=== PATIENT | female | born 1955 ===

== ENCOUNTER → 2020-05-10 13:25 | Outpatient (BNVA) | payer OTHER, SELFPAY | PROVIDERS: PCP Internal Medicine; Referring Provider Internal Medicine; Visit Provider Dietitian, Registered | DX: Z76.89 Persons encountering health services in other specified circumstances (principal) ==

== ENCOUNTER → 2020-07-05 10:44 | Outpatient (BNVA) | payer OTHER, SELFPAY | PROVIDERS: PCP Internal Medicine; Referring Provider Internal Medicine; Visit Provider Nurse Practitioner | DX: Z13.89 Encounter for screening for other disorder (principal) | CPT/HCPCS: Q3014 ==

== ENCOUNTER 2020-08-17 10:42 | Outpatient (REF) | payer OTHER, SELFPAY ==
[2020-08-17 12:31] LABS: Creatinine Urine 137.12 mg/dL
[2020-08-17 12:42] LABS: Alanine Aminotransferase 72 U/L (0-31); Albumin Level 4.1 g/dL (3.5-5.0); Alkaline Phosphatase 119 U/L (39-117); Anion Gap 16 (12-20); Aspartate Amino Transferase 46 U/L (5-31); Bilirubin Total 0.4 mg/dL (0.0-1.0); Blood Urea Nitrogen 13 mg/dL (9-16); Calcium 9.2 mg/dL (8.4-10.2); Carbon Dioxide 28 mmol/L (22-29); Chloride 104 mmol/L (96-108); Cholesterol 144 mg/dL; Estimated Glomerular Filt Rate > 60; Glucose Fasting 146 mg/dL (60-99); HDL Cholesterol 64 mg/dL; LDL Cholesterol Calculated 59 mg/dl; Potassium 4.5 mmol/l (3.3-5.1); Sodium 143 mmol/L (135-145); Triglycerides 107 mg/dL
== END 2020-08-17 10:43 | disposition home or self-care (01) ==
LOC: HO.LAB 10:42
PROVIDERS: PCP Internal Medicine; Visit Provider Internal Medicine
DX: E78.00 Pure hypercholesterolemia, unspecified (principal); E11.43 Type 2 diabetes mellitus with diabetic autonomic (poly)neuropathy
CPT/HCPCS: 36415; 80053; 80061; 82043

== ENCOUNTER 2020-12-08 10:32 | Outpatient (REF) | payer OTHER, SELFPAY ==
[2020-12-08 12:05] LABS: Estimated Average Glucose 209 mg/dL; Hemoglobin A1c % 8.9 %
[2020-12-08 12:07] LABS: Alanine Aminotransferase 42 U/L (0-31); Alkaline Phosphatase 108 U/L (39-117); Anion Gap 12 (12-20); Aspartate Amino Transferase 25 U/L (5-31); Bilirubin Total 0.5 mg/dL (0.0-1.0); Blood Urea Nitrogen 13 mg/dL (9-16); Calcium 9.6 mg/dL (8.4-10.2); Carbon Dioxide 29 mmol/L (22-29); Chloride 104 mmol/L (96-108); Cholesterol 202 mg/dL; Estimated Glomerular Filt Rate > 60; Glucose Fasting 172 mg/dL (60-99); HDL Cholesterol 63 mg/dL; LDL Cholesterol Calculated 111 mg/dl; Potassium 4.4 mmol/L (3.3-5.1); Sodium 141 mmol/L (135-145); Total Protein 6.8 g/dL (6.5-8.0); Triglycerides 140 mg/dL
[2020-12-08 12:21] LABS: Creatinine Urine 214.37 mg/dL; Microalbum/Creatinine Ratio Ur 5.1 ug/mg cr
== END 2020-12-08 10:33 | disposition home or self-care (01) ==
LOC: HO.LAB 10:32
PROVIDERS: PCP Internal Medicine; Visit Provider Internal Medicine
DX: E11.43 Type 2 diabetes mellitus with diabetic autonomic (poly)neuropathy (principal); E78.5 Hyperlipidemia, unspecified
CPT/HCPCS: 36415; 80053; 80061; 82043; 83036

== ENCOUNTER 2021-01-07 15:28 | Outpatient (REF) | payer OTHER, SELFPAY ==
--- NOTE | ~2021-01-07 | MM_ITS ---
EXAMINATION: MM SCREENING DIGITAL BREAST TOMOSYNTHESIS, BILATERAL CLINICAL INFORMATION: Screening. Asymptomatic. The lifetime risk of breast cancer based on the Tyrer-Cuzick Model is 5%. COMPARISON: Mammography: 11/14/2018, 06/20/2016, 04/02/2015 TECHNIQUE: Digital breast tomosynthesis is performed in both the craniocaudal and mediolateral oblique views along with computer-aided detection (CAD). Synthesized 2D images are generated from the tomosynthesis. Additional right MLO view is provided. FINDINGS: There are scattered areas of fibroglandular density (ACR BI-RADS breast composition Category b). There are no significant masses, abnormal calcifications, or other abnormalities. Parenchymal pattern is similar to prior studies. No developing density. No significant MM/MM tomosynthesis screening BI IMPRESSION: No mammographic evidence of malignancy. ASSESSMENT: BI-RADS 1: Negative RECOMMENDATION: Routine annual mammography screening. This patient's information was entered into a reminder system with a target due date for their next mammogram.
== END 2021-01-07 15:29 | disposition home or self-care (01) ==
LOC: HO.MAMMO 15:28
PROVIDERS: Visit Provider Internal Medicine
DX: Z12.31 Encounter for screening mammogram for malignant neoplasm of breast (principal)
CPT/HCPCS: 77063; 77067

== ENCOUNTER → 2021-02-17 09:12 | Outpatient (BNVA) | payer OTHER, SELFPAY | PROVIDERS: PCP Internal Medicine; Visit Provider Nurse Practitioner | DX: K59.04 Chronic idiopathic constipation (principal); K21.9 Gastro-esophageal reflux disease without esophagitis; K31.84 Gastroparesis; K64.9 Unspecified hemorrhoids; D12.6 Benign neoplasm of colon, unspecified | CPT/HCPCS: Q3014 ==

== ENCOUNTER 2021-04-05 10:06 | Outpatient (REF) | payer OTHER, SELFPAY ==
[2021-04-05 11:33] LABS: Alanine Aminotransferase 26 U/L (0-31); Alkaline Phosphatase 85 U/L (39-117); Anion Gap 13 (12-20); Aspartate Amino Transferase 18 U/L (5-31); Bilirubin Total 0.5 mg/dL (0.0-1.0); Blood Urea Nitrogen 9 mg/dL (9-16); Calcium 9.8 mg/dL (8.4-10.2); Carbon Dioxide 30 mmol/L (22-29); Chloride 104 mmol/L (96-108); Cholesterol 196 mg/dL; Estimated Glomerular Filt Rate > 60; Glucose Fasting 100 mg/dL (60-99); HDL Cholesterol 73 mg/dL; LDL Cholesterol Calculated 99 mg/dl; Potassium 4.4 mmol/L (3.3-5.1); Sodium 143 mmol/L (135-145); Total Protein 6.7 g/dL (6.5-8.0); Triglycerides 120 mg/dL
[2021-04-05 11:52] LABS: SARS COV2 IgG Positive (Negative)
[2021-04-05 13:30] LABS: Microalbum/Creatinine Ratio Ur 6.9 ug/mg cr
[2021-04-10 12:22] LABS: Vitamin D 25-OH, D2 <4 ng/mL; Vitamin D 25-OH, D3 24 ng/mL; Vitamin D 25-OH, Total 24 ng/mL (30-100)
== END 2021-04-05 10:07 | disposition home or self-care (01) ==
LOC: HO.LAB 10:06
PROVIDERS: PCP Internal Medicine; Visit Provider Internal Medicine
DX: E11.43 Type 2 diabetes mellitus with diabetic autonomic (poly)neuropathy (principal); E55.9 Vitamin D deficiency, unspecified; E78.5 Hyperlipidemia, unspecified; M25.50 Pain in unspecified joint; Z01.84 Encounter for antibody response examination
CPT/HCPCS: 36415; 80053; 80061; 82043; 82306; 86769

== ENCOUNTER → 2021-06-23 09:20 | Outpatient (BNVA) | payer OTHER, SELFPAY | PROVIDERS: PCP Internal Medicine; Visit Provider Nurse Practitioner | DX: Z13.89 Encounter for screening for other disorder (principal) | CPT/HCPCS: Q3014 ==

== ENCOUNTER → 2021-12-22 10:18 | Outpatient (BNVA) | payer OTHER, SELFPAY | PROVIDERS: PCP Internal Medicine; Referring Provider Internal Medicine; Visit Provider Nurse Practitioner | DX: K59.04 Chronic idiopathic constipation (principal); K21.9 Gastro-esophageal reflux disease without esophagitis; K31.84 Gastroparesis; D12.6 Benign neoplasm of colon, unspecified | CPT/HCPCS: 99212 ==

== ENCOUNTER 2022-01-25 10:13 | Outpatient (REF) | payer OTHER, SELFPAY ==
[2022-01-25 10:32] LABS: MANUAL DIFF FLAG NO
[2022-01-25 10:42] LABS: Basophils Percent Auto 0.4 % (0-2); Eosinophils Absolute Auto 0.2 X10*3/uL (0.0-0.4); Hematocrit 42.4 % (37.0-47.0); Hemoglobin 13.4 g/dl (12.0-16.0); Imm Gran Abs Auto 0.02 X10*3/uL (0.00-0.03); Imm Gran Pct Auto 0.3 % (0.0-0.4); Lymphocytes Absolute Auto 2.2 X10*3/uL (1.2-4.9); Lymphocytes Percent Auto 27.4 % (20-40); Mean Corpuscular HGB Conc 31.6 g/dl (31.0-35.0); Mean Corpuscular Hemoglobin 28.5 pg (27.0-33.0); Mean Corpuscular Volume 90.2 fL (80.0-98.0); Mean Platelet Volume 9.7 fL (9.4-12.3); Monocytes Absolute Auto 0.5 X10*3/uL (0.1-1.2); Monocytes Percent Auto 6.5 % (2-11); Neutrophils Percent Auto 63.4 % (45-73); Platelet Count 316 X10*3/uL (160-400); Red Cell Distribution Width 14.6 % (11.0-16.0); White Blood Count 7.9 X10*3/uL (4.8-10.8)
[2022-01-25 11:29] LABS: Alanine Aminotransferase 21 U/L (0-31); Albumin Level 4.2 g/dL (3.5-5.0); Alkaline Phosphatase 80 U/L (39-117); Anion Gap 12 (12-20); Aspartate Amino Transferase 16 U/L (5-31); Bilirubin Total 0.4 mg/dL (0.0-1.0); Blood Urea Nitrogen 14 mg/dL (9-16); Calcium 9.4 mg/dL (8.4-10.2); Carbon Dioxide 31 mmol/L (22-29); Chloride 102 mmol/L (96-108); Cholesterol 174 mg/dL; Estimated Glomerular Filt Rate > 60; Glucose Random 114 mg/dL (60-115); HDL Cholesterol 69 mg/dL; LDL Cholesterol Calculated 86 mg/dl; Potassium 4.5 mmol/L (3.3-5.1); Sodium 140 mmol/L (135-145); Triglycerides 98 mg/dL
[2022-01-25 12:36] LABS: Creatinine Urine 122.56 mg/dL; Microalbum/Creatinine Ratio Ur 7.3 ug/mg cr
== END 2022-01-25 10:14 | disposition home or self-care (01) ==
LOC: HO.LAB 10:13
PROVIDERS: Absent Provider Internal Medicine; PCP Internal Medicine; Visit Provider Nurse Practitioner
DX: E11.43 Type 2 diabetes mellitus with diabetic autonomic (poly)neuropathy (principal); E78.5 Hyperlipidemia, unspecified; D12.6 Benign neoplasm of colon, unspecified
CPT/HCPCS: 36415; 80053; 80061; 82043; 85025

== ENCOUNTER 2022-02-20 11:25 | Outpatient (REF) | payer OTHER, SELFPAY ==
--- NOTE | ~2022-02-20 | MM_ITS ---
EXAMINATION: MM SCREENING DIGITAL BREAST TOMOSYNTHESIS, BILATERAL CLINICAL INFORMATION: Screening. Asymptomatic. The lifetime risk of breast cancer based on the Tyrer-Cuzick Model is 5%. COMPARISON: Mammography: 01/07/2021, 11/14/2018, 06/20/2016 TECHNIQUE: Digital breast tomosynthesis is performed in both the craniocaudal and mediolateral oblique views along with computer-aided detection (CAD). Synthesized 2D images are generated from the tomosynthesis. FINDINGS: There are scattered areas of fibroglandular density (ACR BI-RADS breast composition Category b). There are no significant masses, abnormal calcifications, or other abnormalities. Parenchymal pattern is similar to prior studies. There is no developing density or architectural abnormality. The axilla and skin contours are unremarkable. No significant changes. MM/MM tomosynthesis screening BI IMPRESSION: No mammographic evidence of malignancy. ASSESSMENT: BI-RADS 1: Negative RECOMMENDATION: Routine annual mammography screening. This patient's information was entered into a reminder system with a target due date for their next mammogram.
== END 2022-02-20 11:26 | disposition home or self-care (01) ==
LOC: HO.MAMMO 11:25
PROVIDERS: PCP Internal Medicine; Visit Provider Internal Medicine
DX: Z12.31 Encounter for screening mammogram for malignant neoplasm of breast (principal)
CPT/HCPCS: 77063; 77067

== ENCOUNTER 2022-06-01 10:24 | Outpatient (REF) | payer OTHER, SELFPAY ==
[2022-06-01 12:31] LABS: Creatinine Urine 88.33 mg/dL; Microalbum/Creatinine Ratio Ur 6.7 ug/mg cr
[2022-06-01 12:35] LABS: Alanine Aminotransferase 21 U/L (0-31); Albumin Level 4.5 g/dL (3.5-5.0); Alkaline Phosphatase 84 U/L (39-117); Anion Gap 18 (12-20); Aspartate Amino Transferase 17 U/L (5-31); Bilirubin Total 0.4 mg/dL (0.0-1.0); Blood Urea Nitrogen 12 mg/dL (9-16); Calcium 9.7 mg/dL (8.4-10.2); Carbon Dioxide 30 mmol/L (22-29); Chloride 100 mmol/L (96-108); Cholesterol 229 mg/dL; Estimated Glomerular Filt Rate > 60; Glucose Fasting 98 mg/dL (60-99); HDL Cholesterol 71 mg/dL; LDL Cholesterol Calculated 132 mg/dl; Potassium 4.9 mmol/L (3.3-5.1); Sodium 143 mmol/L (135-145); Total Protein 7.5 g/dL (6.5-8.0); Triglycerides 131 mg/dL
[2022-06-01 13:13] LABS: Vitamin D 25-OH Total 39.2 ng/mL (>30)
== END 2022-06-01 10:25 | disposition home or self-care (01) ==
LOC: HO.LAB 10:24
PROVIDERS: PCP Internal Medicine; Visit Provider Internal Medicine
DX: E11.43 Type 2 diabetes mellitus with diabetic autonomic (poly)neuropathy (principal); E55.9 Vitamin D deficiency, unspecified; E78.5 Hyperlipidemia, unspecified
CPT/HCPCS: 36415; 80053; 80061; 82043; 82306

== ENCOUNTER → 2022-06-07 10:29 | Outpatient (BNVA) | payer OTHER, SELFPAY | PROVIDERS: PCP Internal Medicine; Visit Provider Nurse Practitioner | DX: K59.04 Chronic idiopathic constipation (principal); K31.84 Gastroparesis; K21.9 Gastro-esophageal reflux disease without esophagitis; K64.9 Unspecified hemorrhoids; D12.6 Benign neoplasm of colon, unspecified | CPT/HCPCS: 99212 ==

== ENCOUNTER 2022-10-09 10:14 | Outpatient (REF) | payer OTHER, SELFPAY ==
[2022-10-09 12:59] LABS: Alanine Aminotransferase 34 U/L (0-31); Alkaline Phosphatase 89 U/L (39-117); Anion Gap 14 (12-20); Aspartate Amino Transferase 25 U/L (5-31); Bilirubin Total 0.3 mg/dL (0.0-1.0); Blood Urea Nitrogen 17 mg/dL (9-16); Calcium 9.1 mg/dL (8.4-10.2); Carbon Dioxide 30 mmol/L (22-29); Chloride 102 mmol/L (96-108); Estimated Glomerular Filt Rate > 60; Glucose Random 101 mg/dL (60-115); Potassium 4.5 mmol/L (3.3-5.1); Sodium 141 mmol/L (135-145); Total Protein 6.4 g/dL (6.5-8.0)
== END 2022-10-09 10:15 | disposition home or self-care (01) ==
LOC: HO.LAB 10:14
PROVIDERS: PCP Internal Medicine; Visit Provider Internal Medicine
DX: E11.43 Type 2 diabetes mellitus with diabetic autonomic (poly)neuropathy (principal)
CPT/HCPCS: 36415; 80053

== ENCOUNTER → 2022-12-05 09:36 | Outpatient (BNVA) | payer OTHER, SELFPAY | PROVIDERS: PCP Internal Medicine; Visit Provider Nurse Practitioner | DX: K59.04 Chronic idiopathic constipation (principal); K31.84 Gastroparesis; K21.9 Gastro-esophageal reflux disease without esophagitis; D12.6 Benign neoplasm of colon, unspecified | CPT/HCPCS: 99212 ==

== ENCOUNTER 2023-02-13 11:16 | Outpatient (REF) | payer OTHER, SELFPAY ==
[2023-02-13 14:48] LABS: Estimated Average Glucose 114 mg/dL; Hemoglobin A1c % 5.6 %
[2023-02-13 17:22] LABS: Creatinine Urine 110.93 mg/dL; Microalbum/Creatinine Ratio Ur 8.1 ug/mg cr
[2023-02-13 19:27] LABS: Alanine Aminotransferase 29 U/L (0-31); Albumin Level 4.1 g/dL (3.5-5.0); Alkaline Phosphatase 77 U/L (39-117); Anion Gap 15 (12-20); Aspartate Amino Transferase 23 U/L (5-31); Bilirubin Total 0.4 mg/dL (0.0-1.0); Blood Urea Nitrogen 12 mg/dL (9-16); Calcium 9.6 mg/dL (8.4-10.2); Carbon Dioxide 28 mmol/L (22-29); Chloride 104 mmol/L (96-108); Cholesterol 137 mg/dL; Estimated Glomerular Filt Rate > 60; Glucose Fasting 72 mg/dL (60-99); HDL Cholesterol 73 mg/dL; LDL Cholesterol Calculated 48 mg/dl; Sodium 143 mmol/L (135-145); Triglycerides 81 mg/dL
[2023-02-13 19:43] LABS: Vitamin D 25-OH Total 42.6 ng/mL (>30)
== END 2023-02-13 11:17 | disposition home or self-care (01) ==
LOC: HO.LAB 11:16
PROVIDERS: PCP Internal Medicine; Visit Provider Internal Medicine
DX: E11.40 Type 2 diabetes mellitus with diabetic neuropathy, unspecified (principal); E55.9 Vitamin D deficiency, unspecified; E78.5 Hyperlipidemia, unspecified
CPT/HCPCS: 36415; 80053; 80061; 82043; 82306; 83036

== ENCOUNTER 2023-02-21 09:48 | Outpatient (AMB) | payer OTHER, SELFPAY ==
[2023-02-21 09:54] VITALS: BP 130/76; BMI 26.5
--- NOTE | 2023-02-21 09:54 | MHC.PC.OV ---
Vital Signs 02/21/23 09:54 Height 5 ft 6 in Weight 164 lb BMI 26.5 BP 130/76 Blood Pressure Location Lt brachial Position Sitting Intake Visit Reasons: dm Intake Note: Patient here for a follow up DM Customer Relationship Specialist Required: No Accompanied by: Daughter Allergies atorvastatin Allergy (Intermediate, Verified 02/21/23 10:01) elevated liver enzymes cortisone [CORTISONE] Allergy (Intermediate, Verified 02/21/23 10:01) SWELLING Penicillins [PENICILLINS] Allergy (Mild, Verified 02/21/23 10:01) RASH Medication List - Last Reconciled 02/21/23 by Gwendolyn Lind MD amitriptyline 20 mg (2 x 10 mg) PO DAILY aripiprazole 5 mg PO DAILY blood sugar diagnostic (FreeStyle Lite Strips) 1 strip miscellaneous BID 90 days bupropion HCl 300 mg PO BEDTIME buspirone 0 mg PO cholecalciferol (vitamin D3) 25 mcg PO DAILY 90 days clonidine HCl 0.2 mg PO BEDTIME dapagliflozin propanediol (Farxiga) 5 mg PO DAILY 90 days docusate sodium 100 mg PO BID PRN 90 days ezetimibe 10 mg PO DAILY 90 days fluoxetine 60 mg PO QAM gabapentin 600 mg PO TID 30 days lancets (FreeStyle Lancets) 1 gauge topical BID 90 days linaclotide 290 mcg PO DAILY 30 days meclizine 25 mg PO TID PRN 30 days metformin ER 1,000 mg (2 x 500 mg) PO BID 90 days metoclopramide HCl 5 mg PO QID omeprazole 40 mg PO BID rosuvastatin 10 mg PO DAILY 90 days sennosides (senna) 17.2 mg (2 x 8.6 mg) PO BEDTIME PRN trazodone 100 mg PO Tobacco use date assessed: 10/16/22 Fall risk assessment: No Falls in past year Last assessed Fall Risk: 02/21/23 Dental Screening Dental Screen Date: 02/21/23 Did you have a dental visit in the last 12 months?: Yes Did you have a dental problem in the last 6 months where you did not have access to dental care?: No Was dental information given to patient?: Patient has dentist HPI HPI Comments History of Present Illness Details This is a 67-year-old female with diabetes mellitus type 2, mild major depression, dyslipidemia, GERD and constipation that comes accompanied by daughter Rosa for follow-up on her conditions. A1c within goal. Depression stable with medications and follow by Psychiatry. LDL within goal. GERD stable with PPIs as needed. Constipation stable with Linzess. No chest pain or shortness of breath. [facility] Medical History Dyslipidemia Hypovitaminosis D Left knee pain Mild recurrent major depression Polyarthralgia Surgical History (Updated 02/21/23 @ 10:05 by Gwendolyn Lind MD) H/O arthroscopy of left knee H/O prior ablation treatment History of bladder surgery History of carpal tunnel release History of esophagogastroduodenoscopy (EGD) History of left knee surgery History of partial hysterectomy History of total right knee replacement History of tubal ligation Hx of arthroplasty Hx of cardiac cath Hx of section Hx of colonoscopy Hx of shoulder surgery Family History Father CVD (cardiovascular disease) Mother Diabetes Hypertension Son No problems noted. Daughter No problems noted. Daughter No problems noted. Family/Other Mental health disorder Social History Housing: Apartment Alcohol intake: never Patient Tobacco Use Status: Never used Tobacco e-Cigarette/Vaping Use: Never Used Second Hand Smoke Exposure: No service: No Current occupational status: unemployed Cognitive needs: No Hearing needs: No Vision needs: No Questionnaire Thrive Questionnaire Date Thrive assessed: 10/16/22 TEO-7 AMB Questionnaire TEO-7 Date TEO - 7 assessed: 10/16/22 Source: Developed by Drs. Prosper North, Mickie Almonte, Cb Melara and colleagues, with an educational john from [email or web address]. Review of Systems Const All systems reviewed & are unremarkable except as noted in HPI and below Eyes Reports no additional complaints, Denies change in vision and Denies other visual disturbances Card Denies chest pain at rest, Denies chest pain with activity, Denies edema, Denies irregular heart rhythm, Denies claudication, Denies dyspnea, Denies dyspnea on exertion, Denies orthopnea, Denies paroxysmal nocturnal dyspnea and Denies slow heart rate Resp Denies cough, Denies dyspnea and Denies dyspnea on exertion GI Denies abdominal pain, Denies change in bowel habits, Denies excessive flatus, Denies nausea and Denies vomiting Denies urinary incontinence, Denies urinary hesitancy and Denies urinary urgency Musc Denies abnormal gait, Denies atrophy, Denies deformity and Denies limited range of motion Skin/Breast Denies bleeding lesions, Denies changing lesions and Denies rash Neuro Denies abnormal gait and Denies lack of coordination Physical exam (Primary Care) Vital Signs: Last Vital Signs BP 130/76 02/21/23 09:54 BMI result Body Mass Index 26.5 Tobacco/Smoking Status: Tobacco use Status Tobacco use date assessed 10/16/22 02/21/23 09:58 Patient Tobacco Use Status Never used Tobacco 02/21/23 09:58 e-Cigarette/Vaping Use Never Used 02/21/23 09:58 Thrive Assessment: Date of Thrive Assessment Date Thrive assessed 10/16/22 02/21/23 09:58 Eyes General: appearance normal, both eyes and all related structures Eyelids: Yes eyelids normal Conjunctivae: conjunctivae normal Neck Neck: Yes normal visual inspection and Yes supple Resp Effort & Inspection: normal respiratory effort Auscultation: clear to auscultation bilaterally Cardio Jugular venous distension: no JVD Rate: regular rate Rhythm: regular rhythm Heart sounds: S1 normal heart sound present and S2 normal heart sound present Extrem General: Yes full ROM Assessment and Plan Assessment & Plan (1) Diabetes mellitus: Code(s): E11.9 - Type 2 diabetes mellitus without complications Plan: Continue metformin and Farxiga. A1c goal is equal or less than 7%. (2) Mild recurrent major depression: Code(s): F33.0 - Major depressive disorder, recurrent, mild Plan: Continue Abilify, bupropion and fluoxetine. Follow-up with psychiatry. (3) Dyslipidemia: Code(s): E78.5 - Hyperlipidemia, unspecified Plan: Continue statins and Zetia. LDL goal is less than 70. (4) GERD (gastroesophageal reflux disease): Code(s): K21.9 - Gastro-esophageal reflux disease without esophagitis Qualifiers: Esophagitis presence: esophagitis presence not specified Qualified Code(s): K21.9 - Gastro-esophageal reflux disease without esophagitis Plan: Continue PPIs as needed (5) Chronic idiopathic constipation: Code(s): K59.04 - Chronic idiopathic constipation Plan: Continue Linzess and docusate as needed. Orders: Orders Lipid Panel 4 Months E78.5 - Hyperlipidemia, unspecified Vitamin D 25-OH Total 4 Months E55.9 - Vitamin D deficiency, unspecified Microalbumin, Random (w Creat) 4 Months E11.9 - Type 2 diabetes mellitus without complications Comprehensive [place]. Panel Fast 4 Months E11.9 - Type 2 diabetes mellitus without complications Medications: New flash glucose scanning reader ([employer] Tre 14 Day [place]) As directed 1 ea 0RF E11.9 - Type 2 diabetes mellitus without complications Refilled blood sugar diagnostic (FreeStyle Lite Strips) 1 strip miscellaneous BID 90 days 180 ea 3RF for diabetes mellitus E11.43 - Type 2 diabetes mellitus with diabetic autonomic (poly)neuropathy Coding Level of Care Code Est Pt Level 4 (58941) Diagnoses Diabetes mellitus E11.9 Mild recurrent major depression F33.0 Dyslipidemia E78.5 GERD (gastroesophageal reflux disease) K21.9 Esophagitis presence: esophagitis presence not specified Chronic idiopathic constipation K59.04 Time Spent (min) 22
== END 2023-02-21 10:09 | disposition home or self-care (01) ==
PROVIDERS: Visit Provider Internal Medicine
DX: E11.9 Type 2 diabetes mellitus without complications (principal); F33.0 Major depressive disorder, recurrent, mild; E78.5 Hyperlipidemia, unspecified; K21.9 Gastro-esophageal reflux disease without esophagitis; K59.04 Chronic idiopathic constipation
CPT/HCPCS: 99214

== ENCOUNTER 2023-06-06 09:50 | Outpatient (REF) | payer OTHER, SELFPAY ==
[2023-06-06 11:23] LABS: Alanine Aminotransferase 24 U/L (0-31); Albumin Level 4.2 g/dL (3.5-5.0); Alkaline Phosphatase 89 U/L (39-117); Anion Gap 13 (12-20); Aspartate Amino Transferase 21 U/L (5-31); Bilirubin Total 0.3 mg/dL (0.0-1.0); Blood Urea Nitrogen 16 mg/dL (9-16); Carbon Dioxide 32 mmol/L (22-29); Chloride 102 mmol/L (96-108); Cholesterol 159 mg/dL (<200); Estimated Glomerular Filt Rate > 60; Glucose Fasting 100 mg/dL (60-99); HDL Cholesterol 71 mg/dL (>40); LDL Cholesterol Calculated 64 mg/dL (<100); Potassium 4.3 mmol/L (3.3-5.1); Sodium 143 mmol/L (135-145); Total Protein 7.5 g/dL (6.5-8.0); Triglycerides 122 mg/dL (<150)
[2023-06-06 11:41] LABS: Vitamin D 25-OH Total 46.3 ng/mL (>30)
[2023-06-06 12:16] LABS: Creatinine Urine 96.15 mg/dL; Microalbum/Creatinine Ratio Ur 8.3 ug/mg cr (<30)
== END 2023-06-06 09:51 | disposition home or self-care (01) ==
LOC: HO.LAB 09:50
PROVIDERS: PCP Internal Medicine; Visit Provider Internal Medicine
DX: E55.9 Vitamin D deficiency, unspecified (principal); E11.9 Type 2 diabetes mellitus without complications; E78.5 Hyperlipidemia, unspecified
CPT/HCPCS: 36415; 80053; 80061; 82043; 82306; 82570

== ENCOUNTER 2023-06-18 09:37 | Outpatient (AMB) | payer OTHER, SELFPAY ==
--- NOTE | 2023-06-18 09:39 | MHC.PC.OV ---
Vital Signs 06/18/23 09:40 Height 5 ft 6 in Weight 169 lb BMI 27.3 BP 112/70 Blood Pressure Location Lt brachial Position Sitting Intake Visit Reasons: PE Intake Note: Patient here for a physical exam Medical Technologist Blood Bank Required: No Accompanied by: Self / Same As Patient Allergies atorvastatin Allergy (Intermediate, Verified 06/18/23 10:16) elevated liver enzymes cortisone [CORTISONE] Allergy (Intermediate, Verified 06/18/23 10:16) SWELLING Penicillins [PENICILLINS] Allergy (Mild, Verified 06/18/23 10:16) RASH Medication List - Last Reconciled 06/18/23 by Gwendolyn Lind MD amitriptyline 20 mg (2 x 10 mg) PO DAILY aripiprazole 5 mg PO DAILY blood sugar diagnostic ([employer] Ultra Test strips) Use 1 test strip twice a day blood-glucose meter ([employer] Ultra2 Meter) As directed bupropion HCl 300 mg PO BEDTIME buspirone 0 mg PO cholecalciferol (vitamin D3) 25 mcg PO DAILY 90 days clonidine HCl 0.2 mg PO BEDTIME dapagliflozin propanediol (Farxiga) 5 mg PO DAILY 90 days docusate sodium 100 mg PO BID PRN 90 days ezetimibe 10 mg PO DAILY 90 days fluoxetine 60 mg PO QAM gabapentin 600 mg PO TID 30 days lancets ([employer] UltraSoft 2 Lancet) Use 1 lancet twice a day linaclotide 290 mcg PO DAILY 30 days meclizine 25 mg PO TID PRN 30 days metformin ER 1,000 mg (2 x 500 mg) PO BID 90 days metoclopramide HCl 5 mg PO QID omeprazole 40 mg PO BID rosuvastatin 10 mg PO DAILY 90 days sennosides (senna) 17.2 mg (2 x 8.6 mg) PO BEDTIME PRN trazodone 100 mg PO Tobacco use date assessed: 10/16/22 Fall risk assessment: No Falls in past year Last assessed Fall Risk: 06/18/23 Dental Screening Dental Screen Date: 06/18/23 Did you have a dental visit in the last 12 months?: Yes Did you have a dental problem in the last 6 months where you did not have access to dental care?: No Was dental information given to patient?: Patient has dentist HPI HPI Comments History of Present Illness Details This is a 67-year-old female with mild recurrent major depression and diabetes mellitus type 2 that comes for her physical exam. Depression stable with medications and she follows with psychiatry. A1c is within goal. Mammogram was February 2022 and I will order another mammogram. Bone density will also be ordered. Colonoscopy done 2016 and she follows with Gastroenterology for this matter. No chest pain or shortness of breath. [facility] Medical History (Updated 06/18/23 @ 12:02 by Gwendolyn Lind MD) Hypovitaminosis D Mild recurrent major depression Polyarthralgia Left knee pain Dyslipidemia Surgical History H/O arthroscopy of left knee History of left knee surgery History of total right knee replacement H/O prior ablation treatment History of partial hysterectomy History of tubal ligation Hx of arthroplasty Hx of cardiac cath History of carpal tunnel release Hx of shoulder surgery Hx of section History of bladder surgery Hx of colonoscopy History of esophagogastroduodenoscopy (EGD) Family History Father CVD (cardiovascular disease) Mother Diabetes Hypertension Son No problems noted. Daughter No problems noted. Daughter No problems noted. Family/Other Mental health disorder Housing: Apartment Alcohol intake: never Patient Tobacco Use Status: Never used Tobacco e-Cigarette/Vaping Use: Never Used Second Hand Smoke Exposure: No service: No Current occupational status: unemployed Cognitive needs: No Hearing needs: No Vision needs: No Questionnaire Thrive Questionnaire Date Thrive assessed: 10/16/22 TEO-7 AMB Questionnaire TEO-7 Date TEO - 7 assessed: 10/16/22 Source: Developed by Drs. Prosper North, Mickie Almonte, Cb Melara and colleagues, with an educational john from [employer]. Review of Systems Const All systems reviewed & are unremarkable except as noted in HPI and below Eyes Reports no additional complaints, Denies change in vision and Denies other visual disturbances Card Denies chest pain at rest, Denies chest pain with activity, Denies edema, Denies irregular heart rhythm, Denies claudication, Denies dyspnea, Denies dyspnea on exertion, Denies orthopnea, Denies paroxysmal nocturnal dyspnea and Denies slow heart rate Resp Denies cough, Denies dyspnea and Denies dyspnea on exertion GI Denies abdominal pain, Denies change in bowel habits, Denies excessive flatus, Denies nausea and Denies vomiting Denies urinary incontinence, Denies urinary hesitancy and Denies urinary urgency Musc Denies abnormal gait, Denies atrophy, Denies deformity and Denies limited range of motion Skin/Breast Denies bleeding lesions, Denies changing lesions and Denies rash Neuro Denies abnormal gait and Denies lack of coordination Physical exam (Primary Care) Vital Signs: Last Vital Signs BP 112/70 06/18/23 09:40 BMI result Body Mass Index 27.3 Tobacco/Smoking Status: Tobacco use Status Tobacco use date assessed 10/16/22 06/18/23 09:47 Patient Tobacco Use Status Never used Tobacco 06/18/23 09:47 e-Cigarette/Vaping Use Never Used 06/18/23 09:47 Thrive Assessment: Date of Thrive Assessment Date Thrive assessed 10/16/22 06/18/23 09:47 Const Orientation/consciousness: patient oriented x3 HENMT Head: Yes normal to inspection, Yes normocephalic and Yes atraumatic Ears: external ears normal Eyes General: appearance normal, both eyes and all related structures Eyelids: Yes eyelids normal Conjunctivae: conjunctivae normal Neck Neck: Yes normal visual inspection and Yes supple Resp Effort & Inspection: normal respiratory effort Auscultation: clear to auscultation bilaterally Cardio Jugular venous distension: no JVD Rate: regular rate Rhythm: regular rhythm Heart sounds: S1 normal heart sound present and S2 normal heart sound present GI Inspection: Yes normal to inspection Palpation (GI): Soft to palpation and nontender Auscultation: normal bowel sounds Skin General skin exam: no rashes or lesions noted Neuro General: patient oriented x3 and no focal motor deficits Extrem General: Yes full ROM Psych Appearance: grossly normal Results AMB Hemoglobin A1c AMB Hemoglobin A1c 6.4 % Last Edit by MOSES Lau on 06/18/23 10:07 Results Reviewed Results Reviewed: Laboratory Last Values Hgb A1c (Clinic) 6.4 % (4.0-6.0) H 06/18/23 09:39 Assessment and Plan Assessment & Plan (1) Physical exam: Code(s): Z00.00 - Encounter for general adult medical examination without abnormal findings Plan: Repeat in a year. (2) Diabetes mellitus: Code(s): E11.9 - Type 2 diabetes mellitus without complications Qualifiers: Diabetes mellitus type: type 2 Diabetes mellitus [facility] insulin use: without longwall foreman use Diabetes mellitus complication status: without complication Qualified Code(s): E11.9 - Type 2 diabetes mellitus without complications Plan: Continue metformin and Farxiga. A1c goal is equal or less than 7 %. (3) Mild recurrent major depression: Code(s): F33.0 - Major depressive disorder, recurrent, mild Plan: Continue fluoxetine. Follow-up with psychiatry. Orders: Orders MM screening mammo BI Today Z12.31 - Encounter for screening mammogram for malignant neoplasm of breast XR DEXA axial skeleton Today N95.9 - Unspecified menopausal and perimenopausal disorder Lipid Panel 4 Months E78.5 - Hyperlipidemia, unspecified Microalbumin, Random (w Creat) 4 Months E11.9 - Type 2 diabetes mellitus without complications AMB Hemoglobin A1c Today E11.9 - Type 2 diabetes mellitus without complications Vitamin D 25-OH Total 4 Months E55.9 - Vitamin D deficiency, unspecified Comprehensive [place]. Panel Fast 4 Months E11.43 - Type 2 diabetes mellitus with diabetic autonomic (poly)neuropathy Medications: New flash glucose sensor (FreeStyle Tre 14 Day Sensor kit) As directed 1 ea 6RF E11.9 - Type 2 diabetes mellitus without complications Changed From blood sugar diagnostic ([employer] Ultra Test strips) Use 1 test strip twice a day 100 ea 3RF E11.9 - Type 2 diabetes mellitus without complications To blood sugar diagnostic (OneTouch Ultra Test strips) Use 1 test strip once a day 100 ea 3RF E11.9 - Type 2 diabetes mellitus without complications Coding Level of Care Code Est Pt Prev Care >65y(19379) Diagnoses Physical exam Z00.00 Type 2 diabetes mellitus without complication, without long-term current use of insulin E11.9 Diabetes mellitus type: type 2 Diabetes mellitus [facility] insulin use: without longwall foreman use Diabetes mellitus complication status: without complication Mild recurrent major depression F33.0 Time Spent (min) 34
[2023-06-18 09:40] VITALS: BP 112/70; BMI 27.3
== END 2023-06-18 10:30 | disposition home or self-care (01) ==
PROVIDERS: Visit Provider Internal Medicine
DX: Z00.00 Encounter for general adult medical examination without abnormal findings (principal); E11.9 Type 2 diabetes mellitus without complications; F33.0 Major depressive disorder, recurrent, mild
CPT/HCPCS: 83036; 99397

== ENCOUNTER 2023-07-10 11:13 | Outpatient (AMB) | payer OTHER, SELFPAY ==
--- NOTE | 2023-07-10 11:18 | A.OFFVIS_ITS ---
Intake Vital Signs 07/10/23 11:42 Height 5 ft 6 in Weight 169 lb 5.04 oz BMI 27.3 BP 117/57 L Blood Pressure Location Rt brachial Position Sitting Pulse 89 Intake Visit Reasons: 6 month follow up Intake Note: Rhonda presents in the office today in 6 month follow up for GERD, CIC and Paresis. CC: Patient reports she is doing well but she recently changed her medical insurance and now it does not cover the Linzess and Senna. Denies having any GI concerns today. 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 I educated her that if she has any trouble with her bowels and surgery, because this is sometimes common, she is to reach out to me as I will be happy to help manage this. Otherwise she continues to be satisfied with her GI regimen. She continues on her Reglan with good control of her gastroparesis and no adverse effects. The Linzess is moving her bowels well and she only uses the senna occasionally.. She also continues on docusate odium. Her omeprazole 40 mg twice a day is controlling her GERD well Return office visit in 6 months. (2) Gastroparesis: Code(s): K31.84 - Gastroparesis (3) GERD (gastroesophageal reflux diseas e): Code(s): K21.9 - Gastro-esophageal reflux disease without esophagitis Qualifiers: Esophagitis presence: esophagitis presence not specified Qualified Code(s): K21.9 - Gastro-esophageal reflux disease without esophagitis (4) Tubular adenoma of colon: Comment: 2017n scope repeat 5 years A. GASTRIC ANTRAL-TYPE AND FUNDIC-TYPE MUCOSA WITH NO DIAGNOSTIC ABNORMALITY. AN IMMUNOSTAIN FOR HELICOBACTER PYLORI IS NEGATIVE FOR ORGANISMS. B. TUBULAR ADENOMA. C. TUBULAR ADENOMA. Code(s): D12.6 - Benign neoplasm of colon, unspecified Medications: Refilled docusate sodium 100 mg PO BID 90 days PRN 180 caps 2RF constipation linaclotide PLE ASE DISREGARD THE SCRIPT FOR LASHELL [place], THE PT IS ON LI POOJAESS!! CHART ERRO R 290 mcg PO DAILY 30 days 30 caps 6R F K59.04 - Chronic i diopathic constipa tion metoclopramide HCl 5 mg PO QID 120 t abs 6RF K31.84 - Gastropar esis omeprazole 40 mg PO BID 60 c aps 6RF K21.9 - Gastro-eso phageal reflux dis ease without esoph agitis sennosides (senna) 17.2 mg (2 x 8.6 m g) PO BEDTIME PRN 60 tabs 6RF for co nstipation TODAYS VISIT Citizen [place] She. continues to do well, but had a change in her insurance and they are not covering her senna. I explained that this is common in she is probably going to have to buy it [id number], the good news is it is pretty inexpensive. She think she may need a prior approval for her Linzess so will check into this. She also continues on her metoclopramide, omeprazole, and Colace. She is due for screening colonoscopy because of her history of tubular adenoma so will get this ordered today. There are no prior problems with anesthesia or sedation. She denies any cardiac or respiratory problems. No ID problems.. ROV 6 mos and after colonoscopy. [facility] Medical History Hypovitaminosis D Mild recurrent major depression Polyarthralgia Left knee pain Dyslipidemia Surgical History H/O arthroscopy of left knee History of left knee surgery History of total right knee replacement H/O prior ablation treatment History of partial hysterectomy History of tubal ligation Hx of arthroplasty Hx of cardiac cath History of carpal tunnel release Hx of shoulder surgery Hx of section History of bladder surgery Hx of colonoscopy History of esophagogastroduodenoscopy (EGD) Family History Father CVD (cardiovascular disease) Mother Diabetes Hypertension Son No problems noted. Daughter No problems noted. Daughter No problems noted. Family/Other Mental health disorder Social History Housing: Apartment Alcohol intake: never Patient Tobacco Use Status: Never used Tobacco e-Cigarette/Vaping Use: Never Used Second Hand Smoke Exposure: No service: No Current occupational status: unemployed Cognitive needs: No Hearing needs: No Vision needs: No Review of Systems Const Denies fatigue, Denies fever(s), Denies night sweats, Denies poor appetite and Denies weight loss ENT Reports Normal hearing present, Denies dental pain, Denies dysphagia, Denies hearing loss, Denies mouth pain, Denies odynophagia, Denies throat swelling, Denies tongue swelling and Reports other (Dentition adequate) Card Reports no additional complaints Resp Reports no additional complaints GI Denies abdominal pain, Denies melena, Reports bloating, Denies hematochezia, Reports constipation, Denies GI cramping, Denies dysphagia, Denies excessive flatus, Reports early satiety, Reports heartburn, Denies diarrhea, Denies nausea, Denies odynophagia, Denies vomiting and Denies hematemesis Skin/Breast Denies pruritus, Denies lesions, Denies rash and Denies jaundice Neuro Reports Normal hearing present and Denies Abnormal speech present Endo Denies fatigue Aller/Immun Denies throat swelling and Denies tongue swelling Physical Exam Vital Signs: Last Vital Signs Pulse 89 07/10/23 11:42 BP 117/57 L 07/10/23 11:42 BMI result Body Mass Index 27.3 Const General: cooperative, no acute distress, well developed and well groomed Nutritional Appearance: average body habitus and well nourished Orientation/consciousness: oriented to person, oriented to place and oriented to time Limitations: language barrier HEENT Head: Yes normocephalic and Yes atraumatic Teeth and gingiva: poor dentition (missing many front teeth) Eyes General: appearance normal, both eyes and all related structures Pupils: Equal, round and reactive pupils present Neck Neck: Yes normal visual inspection and Yes no lymphadenopathy Thyroid: Thyroid normal Resp Effort & Inspection: normal respiratory effort and able to speak in complete sentences Auscultation: clear to auscultation bilaterally Cardio Rate: regular rate Rhythm: regular rhythm Heart sounds: Normal, physiologic split S2 sound present Peripheral pulses: radial pulses present and posterior tibial pulses present GI Inspection: No distended and No Abdominal panniculus present Palpation (GI): Soft to palpation, nontender, no guarding, not rigid and No hepatosplenomegaly present Percussion: Yes normal to percussion Auscultation: normal bowel sounds Rectal Exam - Female: deferred Skin General skin exam: no rashes or lesions noted, turgor normal, skin not dry, no jaundice, No spider nevi and no striae Rashes: no rashes Nails: normal Neuro General: oriented to person, oriented to place and oriented to time Cranial nerves: Yes Equal, round and reactive pupils present and Yes Normal hearing present Speech: No Abnormal speech present Extrem General: Yes normal to inspection, No clubbing, No cyanosis and No edema Psych Appearance: grossly normal and well kempt Mental Status: mental status grossly normal Speech and movement: Normal speech and movement present Affect: normal affect Attitude: cooperative Thought process: Normal thought process present and not confabulating Thought content: Normal thought content present Insight: Fair insight present (Psych) Judgement: Fair judgement present (Psych) Results Reviewed Results Reviewed: Laboratory Tests 06/06/23 06/06/23 06/18/23 10:04 10:04 09:39 Estimated GFR > 60 Hgb A1c (Clinic) 6.4 H Total Bilirubin 0.3 AST 21 ALT 24 Alkaline Phosphatase 89 Assessment & Plan Assessment & Plan (1) Chronic idiopathic constipation: Code(s): K59.04 - Chronic idiopathic constipation (2) GERD (gastroesophageal reflux disease): Code(s): K21.9 - Gastro-esophageal reflux disease without esophagitis Qualifiers: Esophagitis presence: esophagitis presence not specified Qualified Code(s): K21.9 - Gastro-esophageal reflux disease without esophagitis (3) Gastroparesis: Code(s): K31.84 - Gastroparesis (4) Tubular adenoma of colon: Comment: 2017n scope repeat 5 years A. GASTRIC ANTRAL-TYPE AND FUNDIC-TYPE MUCOSA WITH NO DIAGNOSTIC ABNORMALITY. AN IMMUNOSTAIN FOR HELICOBACTER PYLORI IS NEGATIVE FOR ORGANISMS. B. TUBULAR ADENOMA. C. TUBULAR ADENOMA. Code(s): D12.6 - Benign neoplasm of colon, unspecified (5) Pre-op examination: Code(s): Z01.818 - Encounter for other preprocedural examination Plan Citizen [place] She. continues to do well, but had a change in her insurance and they are not covering her senna. I explained that this is common in she is probably going to have to buy it [id number], the good news is it is pretty inexpensive. She think she may need a prior approval for her Linzess so will check into this. She also continues on her metoclopramide, omeprazole, and Colace. She is due for screening colonoscopy because of her history of tubular adenoma so will get this ordered today. There are no prior problems with anesthesia or sedation. She denies any cardiac or respiratory problems. No ID problems.. ROV 6 mos and after colonoscopy. . Orders: Orders Colonoscopy - GI Use Only Today Medications: New sodium,potassium,mag sulfates 17.5-3.13-1.6 gram (Suprep Bowel Prep Kit) 480 mL orally; 354 mL 0RF D12.6 - Benign neoplasm of colon, unspecified Changed From linaclotide PLEASE DISREGARD THE SCRIPT FOR TRULANCE, THE PT IS ON LINZESS!! CHART ERROR 290 mcg PO DAILY 30 days 30 caps 6RF K59.04 - Chronic idiopathic constipation To linaclotide 290 mcg PO DAILY 30 days 30 caps 6RF K59.04 - Chronic idiopathic constipation Refilled omeprazole 40 mg PO BID 60 caps 6RF K21.9 - Gastro-esophageal reflux disease without esophagitis sennosides (senna) 17.2 mg (2 x 8.6 mg) PO BEDTIME PRN 60 tabs 6RF for cons tipation metoclopramide HCl 5 mg PO QID 120 tabs 6RF K31.84 - Gastroparesis Coding Level of Care Code Est Pt Level 4 (64431) Diagnoses Chronic idiopathic constipation K59.04 Gastroesophageal reflux disease, unspecified whether esophagitis present K21.9 Esophagitis presence: esophagitis presence not specified Gastroparesis K31.84 Tubular adenoma of colon D12.6 Pre-op examination Z01.818
[2023-07-10 11:42] VITALS: BP 117/57; PULSE 89; BMI 27.3
== END 2023-07-10 12:29 | disposition home or self-care (01) ==
PROVIDERS: PCP Internal Medicine; Visit Provider Nurse Practitioner
DX: K59.04 Chronic idiopathic constipation (principal); K21.9 Gastro-esophageal reflux disease without esophagitis; K31.84 Gastroparesis; D12.6 Benign neoplasm of colon, unspecified; Z01.818 Encounter for other preprocedural examination
CPT/HCPCS: 99214

== ENCOUNTER → 2023-07-10 11:13 | Outpatient (BNVA) | payer OTHER, SELFPAY | PROVIDERS: PCP Internal Medicine; Visit Provider Nurse Practitioner | DX: Z01.818 Encounter for other preprocedural examination (principal); K59.04 Chronic idiopathic constipation; K21.9 Gastro-esophageal reflux disease without esophagitis; K31.84 Gastroparesis; D12.6 Benign neoplasm of colon, unspecified | CPT/HCPCS: 99212 ==

== ENCOUNTER 2023-08-15 10:22 | Outpatient (REF) | payer MEDICARE, SELFPAY ==
--- NOTE | ~2023-08-15 | MM_ITS ---
EXAMINATION: BONE DENSITOMETRY CLINICAL INDICATION: Unspecified menopausal and perimenopausal disorder. COMPARISON: This is the patient's baseline examination. TECHNIQUE: Using a [employer] DXA System (software version: 13.1) manufactured by [employer], dual-energy x-ray absorptiometry was performed of the lumbar spine and left hip. The images are of good technical quality. Summary results are attached. FINDINGS: LEFT FEMUR, NECK: BMD 0.795 g/cm2, Z-score -0.5, T-score -1.8, osteopenia. LEFT FEMUR, TOTAL: BMD 0.857 g/cm2, Z-score -0.3, T-score -1.2, osteopenia. AP SPINE L1-L3 (excluding L4): The data of L1-L4 has been changed to exclude the L4 vertebral body, because degenerative sclerosis at this level may cause overestimation of lumbar spine density. BMD 0.943 g/cm2, Z-score -0.7, T-score -1.9, osteopenia. IDENTIFIED RISK FACTORS: Early menopause, secondary osteoporosis, hysterectomy. HISTORY OF FRACTURE: None listed. MEDICATIONS: Vitamin D. MM/XR DEXA axial skeleton IMPRESSION: 1. DIAGNOSIS: Osteopenia based on the lowest T-score value of -1.9 in the lumbar spine applying World Health Organization criteria. 2. 10-YEAR FRACTURE RISK PREDICTION, FRAX: Major osteoporotic fracture (clinical spine, forearm, hip or shoulder) 5.5%. Hip fracture 0.7%. 3. Treatment Recommendations: NOF guidelines recommend consideration for treatment in postmenopausal women and men age 50 and older presenting with the following: -A hip or vertebral (clinical or morphometric) fracture. -T-score less than or equal to -2.5 at the femoral neck or spine after appropriate evaluation to exclude secondary causes. -Low bone mass at the hip or spine and a 10-year fracture probability by FRAX of greater than or equal to 3% for hip fracture or greater than or equal to 20% for major osteoporotic fracture based on the [place] adapted WHO algorithm. 4. Other Recommendations: All treatment decisions require clinical judgment and consideration of individual patient factors, including patient preferences, comorbidities, previous drug use, risk factors not captured in the FRAX model (e.g. frailty, falls, vitamin D deficiency, increased bone turnover, interval significant decline in bone density) and possible under or overestimation of fracture risk by FRAX. Additional medical evaluation for secondary cause of low bone mineral density may be appropriate. FUTURE SCAN RECOMMENDATION: People with diagnosed cases of osteoporosis or at high risk for fracture should have regular bone mineral density tests. For patients eligible for Medicare, routine testing is allowed once every 2 years. The testing frequency can be increased to one year for patients who have rapidly progressing disease, those who are receiving or discontinuing medical therapy to restore bone mass, or have additional risk factors.
== END 2023-08-15 10:23 | disposition home or self-care (01) ==
LOC: HO.MAMMO 10:22
PROVIDERS: PCP Internal Medicine; Visit Provider Internal Medicine
DX: Z12.31 Encounter for screening mammogram for malignant neoplasm of breast (principal); Z13.820 Encounter for screening for osteoporosis; Z78.0 Asymptomatic menopausal state
CPT/HCPCS: 77063; 77067; 77080

== ENCOUNTER → 2023-08-15 11:00 | Outpatient (BNV) | payer MEDICARE, SELFPAY | PROVIDERS: PCP Internal Medicine; Visit Provider Radiology Diagnostic Radiology | DX: Z12.31 Encounter for screening mammogram for malignant neoplasm of breast (principal) | CPT/HCPCS: 77063; 77067 ==

== ENCOUNTER 2023-10-03 08:15 | Outpatient (REF) | payer MEDICARE, SELFPAY ==
[2023-10-03 10:13] LABS: Alanine Aminotransferase 40 U/L (0-31); Albumin Level 4.2 g/dL (3.5-5.0); Alkaline Phosphatase 82 U/L (39-117); Anion Gap 15 (12-20); Aspartate Amino Transferase 30 U/L (5-31); Bilirubin Total 0.3 mg/dL (0.0-1.0); Blood Urea Nitrogen 14 mg/dL (9-16); Calcium 10.1 mg/dL (8.4-10.2); Carbon Dioxide 31 mmol/L (22-29); Chloride 101 mmol/L (96-108); Cholesterol 138 mg/dL (<200); Estimated Glomerular Filt Rate > 60; Glucose Fasting 86 mg/dL (60-99); HDL Cholesterol 71 mg/dL (>40); LDL Cholesterol Calculated 45 mg/dL (<100); Potassium 4.2 mmol/L (3.3-5.1); Sodium 143 mmol/L (135-145); Total Protein 7.4 g/dL (6.5-8.0); Triglycerides 113 mg/dL (<150)
[2023-10-03 10:18] LABS: Vitamin D 25-OH Total 46.4 ng/mL (>30)
[2023-10-03 10:30] LABS: Creatinine Urine 101.04 mg/dL; Microalbum/Creatinine Ratio Ur 7.9 ug/mg cr (<30)
== END 2023-10-03 08:16 | disposition home or self-care (01) ==
LOC: HO.LAB 08:15
PROVIDERS: PCP Internal Medicine; Visit Provider Internal Medicine
DX: E78.5 Hyperlipidemia, unspecified (principal); E55.9 Vitamin D deficiency, unspecified; E11.43 Type 2 diabetes mellitus with diabetic autonomic (poly)neuropathy
CPT/HCPCS: 36415; 80053; 80061; 82043; 82306; 82570

== ENCOUNTER 2023-10-17 10:29 | Outpatient (AMB) | payer OTHER, SELFPAY ==
--- NOTE | 2023-10-17 10:39 | A.OFFPC_ITS ---
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 Accompanied by: Daughter Allergies atorvastatin Allergy (Intermediate, Verified 10/17/23 11:03) elevated liver enzymes cortisone [CORTISONE] Allergy (Intermediate, Verified 10/17/23 11:03) SWELLING Penicillins [PENICILLINS] Allergy (Mild, Verified 10/17/23 11:03) RASH Medication List - Last Reconciled 10/17/23 by Gwendolyn Lind MD amitriptyline 20 mg (2 x 10 mg) PO DAILY aripiprazole 5 mg PO DAILY blood sugar diagnostic (Aardvarkuch Ultra Test strips) Use 1 test strip once a day blood-glucose meter (frooly Ultra2 Meter) As directed bupropion HCl 300 mg PO BEDTIME buspirone 10 mg PO DAILY cholecalciferol (vitamin D3) 25 mcg PO DAILY 90 days clonidine HCl 0.2 mg PO BEDTIME dapagliflozin propanediol (Farxiga) 5 mg PO DAILY 90 days docusate sodium 100 mg PO BID PRN ezetimibe 10 mg PO DAILY 90 days flash glucose sensor (FreeStyle Tre 14 Day Sensor kit) As directed fluoxetine 60 mg PO QAM gabapentin 600 mg PO TID 30 days lancets (Altiostar NetworksTouch UltraSoft 2 Lancet) Use 1 lancet twice a day linaclotide 290 mcg PO DAILY 30 days meclizine 25 mg PO TID PRN 30 days metformin ER 1,000 mg (2 x 500 mg) PO BID 90 days metoclopramide HCl 5 mg PO QID omeprazole 40 mg PO BID rosuvastatin 10 mg PO DAILY 90 days sennosides (senna) 17.2 mg (2 x 8.6 mg) PO BEDTIME PRN sodium,potassium,mag sulfates 17.5-3.13-1.6 gram 480 mL PO DIRECTED trazodone 100 mg PO BEDTIME Tobacco use date assessed: 10/17/23 Fall risk assessment: No Falls in past year Dental Screening Dental Screen Date: 10/17/23 Did you have a dental visit in the last 12 months?: No Did you have a dental problem in the last 6 months where you did not have access to dental care?: No Was dental information given to patient?: Patient has dentist HPI HPI Comments History of Present Illness Details This is a 67-year-old female with diabetes mellitus type 2, dyslipidemia, GERD, mild recurrent major depression and chronic idiopathic constipation that comes today accompanied by daughter for follow-up on her conditions. A1c within goal. LDL within goal. Depression has markedly improved with medications and this is follow by Psychiatry. Constipation stable with Linzess. GERD stable with PPIs. Denies any chest pain or shortness a breath. Compliant with medications. [facility] Medical History (Updated 10/17/23 @ 12:22 by Gwendolyn Lind MD) Type 2 diabetes mellitus with diabetic autonomic (poly)neuropathy Hypovitaminosis D Mild recurrent major depression Polyarthralgia Left knee pain Dyslipidemia Surgical History H/O arthroscopy of left knee History of left knee surgery History of total right knee replacement H/O prior ablation treatment History of partial hysterectomy History of tubal ligation Hx of arthroplasty Hx of cardiac cath History of carpal tunnel release Hx of shoulder surgery Hx of section History of bladder surgery Hx of colonoscopy History of esophagogastroduodenoscopy (EGD) Family History Father CVD (cardiovascular disease) Mother Diabetes Hypertension Son No problems noted. Daughter No problems noted. Daughter No problems noted. Family/Other Mental health disorder Social History Housing: Apartment Alcohol intake: never Patient Tobacco Use Status: Never used Tobacco e-Cigarette/Vaping Use: Never Used Second Hand Smoke Exposure: No service: No Current occupational status: unemployed Cognitive needs: No Hearing needs: No Vision needs: No Questionnaire PHQ-9 Over the last 2 weeks, how often have you been bothered by any of the following problems? 1. Little interest or pleasure in doing things: not at all 2. Feeling down, depressed, or hopeless: not at all 3. Trouble falling or staying asleep, or sleeping too much: not at all 4. Feeling tired or having little energy: not at all 5. Poor appetite or overeating: not at all 6. Feeling bad about yourself - or that you are a failure or have let yourself or your family down: not at all 7. Trouble concentrating on things, such as reading the newspaper or watching television: not at all 8. Moving or speaking so slowly that other people could have noticed. Or the opposite - being so fidgety or restless that you have been moving around a lot more than usual: not at all 9. Thoughts that you would be better off or of hurting yourself in some way: not at all Total score: 0 Depression Screening Interpretation: Negative Depression Screening Done: Yes 83903 - PHQ-9 Billing: Yes Source: Developed by Drs. Prosper North, Mickie Almonte, Cb Melara and colleagues, with an educational john from [employer]. Thrive Questionnaire Date Thrive assessed: 10/17/23 I am a: Patient What is your living situation today?: I have a steady place to live Within the past 12 months, did the food you bought not last and you didn't have the money to get more?: Never true Within the past 12 months, did you worry whether your food would run out before you got money to buy more?: Never true Do you have trouble paying for medicines?: No Do you have trouble getting transportation to medical appointments?: No Do you have trouble paying your heating and electricity bill?: No Do you have trouble taking care of your child, family member or friend?: No Do you have trouble with day-to-day activities such as bathing, preparing meals, shopping, managing finances, etc.?: No Are you currently unemployed and looking for a job?: No Are you interested in more education?: No Please select the resources that you would like help with: None Currently or been in a relationship where the following occur: no concerns reported THRIVE Score: 0 AUDIT C Alcohol Use Questionnaire (AUDIT-C) 1. How often do you have a drink containing alcohol?: Never Total Score: 0 Score Reviewed/Action Taken: No TEO-7 AMB Questionnaire TEO-7 Date TEO - 7 assessed: 10/17/23 Feeling nervous, anxious, or on edge: 0 = Not at all Not being able to stop or control worryin = Not at all Worrying too much about different things: 0 = Not at all Trouble relaxin = Not at all Being so restless that it is hard to sit still: 0 = Not at all Becoming easily annoyed or irritable: 0 = Not at all Feeling afraid as if something awful might happen: 0 = Not at all Total TEO-7 score (0-4 normal; 5-9 mild; 10-14 moderate; 15-21 severe): 0 Source: Developed by Drs. Prosper North, Mickie Almonte, Cb Melara and colleagues, with an educational john from [employer]. TEO-7 Assessment Billing TEO-7 Assessment Tool: TEO-7 Assessment 27820 Review of Systems Const All systems reviewed & are unremarkable except as noted in HPI and below Eyes Reports no additional complaints, Denies change in vision and Denies other visual disturbances Card Denies chest pain at rest, Denies chest pain with activity, Denies edema, Denies irregular heart rhythm, Denies claudication, Denies dyspnea, Denies dyspnea on exertion, Denies orthopnea, Denies paroxysmal nocturnal dyspnea and Denies slow heart rate Resp Denies cough, Denies dyspnea and Denies dyspnea on exertion GI Denies abdominal pain, Denies change in bowel habits, Denies excessive flatus, Denies nausea and Denies vomiting Denies urinary incontinence, Denies urinary hesitancy and Denies urinary urgency Physical exam (Primary Care) Vital Signs: Last Vital Signs BP 112/72 10/17/23 10:41 BMI result Body Mass Index 27.4 Tobacco/Smoking Status: Tobacco use Status Tobacco use date assessed 10/17/23 10/17/23 10:46 Patient Tobacco Use Status Never used Tobacco 10/17/23 10:41 e-Cigarette/Vaping Use Never Used 10/17/23 10:41 PHQ-9: PHQ-9 Score PHQ-9: Total score 0 10/17/23 11:06 Depression Screening Interpretation: Negative Thrive Assessment: Date of Thrive Assessment Date Thrive assessed 10/17/23 10/17/23 10:46 Currently or been in a relationship where the following occur: no concerns reported Resp Effort & Inspection: normal respiratory effort Auscultation: clear to auscultation bilaterally Cardio Jugular venous distension: no JVD Rate: regular rate Rhythm: regular rhythm Heart sounds: S1 normal heart sound present and S2 normal heart sound present Extrem General: Yes full ROM Psych Appearance: grossly normal Results AMB Hemoglobin A1c AMB Hemoglobin A1c 6.5 % Last Edit by MOSES Lau on 10/17/23 10:4 8 Results Reviewed Results Reviewed: Laboratory Last Values Hgb A1c (Clinic) 6.5 % (4.0-6.0) H 10/17/23 10:37 Assessment and Plan Assessment & Plan (1) Diabetes mellitus: Code(s): E11.9 - Type 2 diabetes mellitus without complications Qualifiers: Diabetes mellitus type: type 2 Diabetes mellitus locomotive switch operator insulin use: without locomotive switch operator use Diabetes mellitus complication status: without complication Qualified Code(s): E11.9 - Type 2 diabetes mellitus without complications Plan: Continue Farxiga and metformin. A1c goal is equal or less than 7%. (2) Mild recurrent major depression: Code(s): F33.0 - Major depressive disorder, recurrent, mild Plan: Continue Abilify, amitriptyline and bupropion. Follow-up with psychiatry. (3) Dyslipidemia: Code(s): E78.5 - Hyperlipidemia, unspecified Plan: Continue statins and Zetia. LDL goal is less than 70. (4) Chronic idiopathic constipation: Code(s): K59.04 - Chronic idiopathic constipation Plan: Continue Linzess. (5) GERD (gastroesophageal reflux disease): Code(s): K21.9 - Gastro-esophageal reflux disease without esophagitis Qualifiers: Esophagitis presence: esophagitis presence not specified Qualified Code(s): K21.9 - Gastro-esophageal reflux disease without esophagitis Plan: Continue PPIs as needed. Orders: Orders Microalbumin, Random (w Creat) 4 Months E11.9 - Type 2 diabetes mellitus without complications Vitamin D 25-OH Total 4 Months E55.9 - Vitamin D deficiency, unspecified AMB Hemoglobin A1c Today E11.9 - Type 2 diabetes mellitus without complications Lipid Panel 4 Months E78.5 - Hyperlipidemia, unspecified Comprehensive [place]. Panel Fast 4 Months E11.9 - Type 2 diabetes mellitus without complications Medications: Refilled flash glucose sensor (FreeStyle Tre 14 Day Sensor kit) As directed 1 ea 6RF E11.9 - Type 2 diabetes mellitus without complications Coding Level of Care Code Est Pt Level 4 (03364) Diagnoses Type 2 diabetes mellitus without complication, without long-term current use of insulin E11.9 Diabetes mellitus type: type 2 Diabetes mellitus senior care insulin use: without locomotive switch operator use Diabetes mellitus complication status: without complication Mild recurrent major depression F33.0 Dyslipidemia E78.5 Chronic idiopathic constipation K59.04 Gastroesophageal reflux disease, unspecified whether esophagitis present K21.9 Esophagitis presence: esophagitis presence not specified Additional Codes TEO-7 Assessment Billing - TEO-7 Assessment Tool: TEO-7 Assessment 14492 ([id number]) Time Spent (min) 22
[2023-10-17 10:41] VITALS: BP 112/72; BMI 27.4
== END 2023-10-17 11:13 | disposition home or self-care (01) ==
PROVIDERS: PCP Internal Medicine; Visit Provider Internal Medicine
DX: E11.69 Type 2 diabetes mellitus with other specified complication (principal); F33.0 Major depressive disorder, recurrent, mild; E78.5 Hyperlipidemia, unspecified; K59.04 Chronic idiopathic constipation; K21.9 Gastro-esophageal reflux disease without esophagitis
CPT/HCPCS: 83036; 99214

== ENCOUNTER 2023-11-14 07:48 | Day surgery (SDC) | payer MEDICARE, SELFPAY ==
--- NOTE | 2023-11-13 10:41 | P.CONAN_ITS ---
Documented by User: Ailin Boone NP 11/13/23 10:42 HPI - Anesthesia Eval Consult details Narrative: 67yo F for Colonoscopy Anesthesia Pre-Procedure Meds Is the patient on any of the following meds?: Any other SGL-1 drugs or drugs that delay gastric emptying (Farxiga) PMFSH Active Problems Active Problems: All Active Problems Pre-op examination (Acute) Diabetes mellitus (Acute) Physical exam (Acute) Hypovitaminosis D (Acute) Mild recurrent major depression (Acute) Tubular adenoma of colon (Acute) Polyarthralgia (Acute) Left knee pain (Acute) Dyslipidemia (Acute) Chronic idiopathic constipation (Acute) Bleeding hemorrhoids (Acute) GERD (gastroesophageal reflux disease) (Acute) Gastroparesis (Acute) Past Medical History Medical History Type 2 diabetes mellitus with diabetic autonomic (poly)neuropathy Hypovitaminosis D Mild recurrent major depression Polyarthralgia Left knee pain Dyslipidemia Family History Family History Father CVD (cardiovascular disease) Mother Diabetes Hypertension Son No problems noted. Daughter No problems noted. Daughter No problems noted. Family/Other Mental health disorder Surgical History Surgical History H/O arthroscopy of left knee History of left knee surgery History of total right knee replacement H/O prior ablation treatment History of partial hysterectomy History of tubal ligation Hx of arthroplasty Hx of cardiac cath History of carpal tunnel release Hx of shoulder surgery Hx of section History of bladder surgery Hx of colonoscopy History of esophagogastroduodenoscopy (EGD) Social History Social History Housing: Apartment Alcohol intake: never Patient Tobacco Use Status: Never used Tobacco e-Cigarette/Vaping Use: Never Used Second Hand Smoke Exposure: No Use of substances other than those prescribed or required for medical reasons: No Are you DNR?: No Advance Directives: No Advance Directives Information Provided: Yes Patient : No service: No Current occupational status: unemployed Cognitive needs: No Hearing needs: No Vision needs: No Meds Allergies Allergy/AdvReac Type Severity Reaction Status Date / Time atorvastatin Allergy Intermediate elevated Verified 10/17/23 11:03 liver enzymes cortisone [CORTISONE] Allergy Intermediate SWELLING Verified 10/17/23 11:03 Penicillins [PENICILLINS] Allergy Mild RASH Verified 10/17/23 11:03 Home Medications ?Medication ?Instructions ?Recorded ?Confirmed ?Last Taken ?Type bupropion HCl 300 mg 24 hr tablet, 300 mg PO BEDTIME 12/16/20 10/17/23 Unknown History extended release clonidine HCl 0.2 mg tablet 0.2 mg PO BEDTIME 12/16/20 10/17/23 Unknown History fluoxetine 20 mg capsule 60 mg PO QAM 12/16/20 10/17/23 Unknown History aripiprazole 5 mg tablet 5 mg PO DAILY 06/07/22 10/17/23 Unknown History buspirone 10 mg tablet 10 mg PO DAILY 07/10/23 10/17/23 Unknown History trazodone 100 mg tablet 100 mg PO BEDTIME 07/10/23 10/17/23 Unknown History Exam Pertinent Lab Results Pertinent Lab Results: Laboratory Tests 01/25/22 10/03/23 10:31 08:43 WBC 7.9 Hgb 13.4 Hct 42.4 Plt Count 316 Sodium 143 Potassium 4.2 Chloride 101 Carbon Dioxide 31 H BUN 14 Creatinine 0.74 Assessment and Plan Assessment Anesthesia Assessment: Chart Reviewed Documented by User: Yani Langley MD 11/14/23 10:06 HPI - Anesthesia Eval Anesthesia Pre-Procedure Meds Is the patient on any of the following meds?: Any other SGL-1 drugs or drugs that delay gastric emptying (Farxiga. Patient initially stated that she did not stop the farxiga but then changed and said she stopped 3 days ago after I informed her that she should have stopped. Verified several times through senior compliance officer and patient adamant that she stopped. Aware of risk of aspiration and sequelae.) If Yes to any meds - educate patient: Pt education - increased risk of aspira tion PMFSH Past Medical History Medical History Type 2 diabetes mellitus with diabetic autonomic (poly)neuropathy Hypovitaminosis D Mild recurrent major depression Polyarthralgia Left knee pain Dyslipidemia Family History Family History Father CVD (cardiovascular disease) Mother Diabetes Hypertension Son No problems noted. Daughter No problems noted. Daughter No problems noted. Family/Other Mental health disorder Family history of problems with anesthesia: No Surgical History Surgical History H/O arthroscopy of left knee History of left knee surgery History of total right knee replacement H/O prior ablation treatment History of partial hysterectomy History of tubal ligation Hx of arthroplasty Hx of cardiac cath History of carpal tunnel release Hx of shoulder surgery Hx of section History of bladder surgery Hx of colonoscopy History of esophagogastroduodenoscopy (EGD) History of Problems with Anesthesia: No Social History Social History Housing: Apartment Alcohol intake: never Patient Tobacco Use Status: Never used Tobacco e-Cigarette/Vaping Use: Never Used Second Hand Smoke Exposure: No Use of substances other than those prescribed or required for medical reasons: No Are you DNR?: No Advance Directives: No Advance Directives Information Provided: Yes Patient : No service: No Current occupational status: unemployed Cognitive needs: No Hearing needs: No Vision needs: No Meds Allergies Allergy/AdvReac Type Severity Reaction Status Date / Time atorvastatin Allergy Intermediate elevated Verified 10/17/23 11:03 liver enzymes cortisone [CORTISONE] Allergy Intermediate SWELLING Verified 10/17/23 11:03 Penicillins [PENICILLINS] Allergy Mild RASH Verified 10/17/23 11:03 Home Medications ?Medication ?Instructions ?Recorded ?Confirmed ?Last Taken ?Type bupropion HCl 300 mg 24 hr tablet, 300 mg PO BEDTIME 12/16/20 10/17/23 Unknown History extended release clonidine HCl 0.2 mg tablet 0.2 mg PO BEDTIME 12/16/20 10/17/23 Unknown History fluoxetine 20 mg capsule 60 mg PO QAM 12/16/20 10/17/23 Unknown History aripiprazole 5 mg tablet 5 mg PO DAILY 06/07/22 10/17/23 Unknown History buspirone 10 mg tablet 10 mg PO DAILY 07/10/23 10/17/23 Unknown History trazodone 100 mg tablet 100 mg PO BEDTIME 07/10/23 10/17/23 Unknown History Exam Height,Weight and Vital Signs: Height 5 ft 6 in Weight 76.204 kg Vital Signs Temp Pulse Resp BP Pulse Ox O2 Del Method 11/14/23 09:07 97.5 F 62 18 120/62 97 Room Air Pertinent Lab Results Pertinent Lab Results: Laboratory Tests 01/25/22 10/03/23 10:31 08:43 WBC 7.9 Hgb 13.4 Hct 42.4 Plt Count 316 Sodium 143 Potassium 4.2 Chloride 101 Carbon Dioxide 31 H BUN 14 Creatinine 0.74 Lab Results 11/14/23 Range/Units 09:23 POC Glucose 92 (60-115) mg/dL Airway Mallampati Class: II TM Dist: >3cm Neck ROM: Full Partial: Upper Loose/Missing/Broken Teeth: Yes (Missing molars bottom) Heart: RRR Lungs: CTAB Assessment and Plan Assessment Anesthesia Assessment: Anesthesia Plan Discussed and Chart Reviewed Final Anesthetic Review Family History of Problems with Anesthesia: No History of Problems with Anesthesia: No NPO: Yes ASA Class: III Final Preanesthetic Review: No Changes in Pt Med Stat, Meds/Allgs Chart Reviewed, Consent Obtained/Reviewed and Anes Risks/Benef Reviewed Patient Risk: Intermediate Procedure Risk: Low Assessment/Block/Sedation in SS: Assess/Block/Sedation-SS Anesthetic Plan Anesthetic Plan: MAC: and TIVA Disposition: Standard PACU
[2023-11-14 08:56] VITALS: BMI 27.1
[2023-11-14 08:58] VITALS: BMI 27.1
[2023-11-14 09:07] VITALS: BP 120/62; PULSE 62; RESP 18; TEMP 36.4; O2SAT 97
[2023-11-14] MEDS: Lactated Ringers 1,000 ML 100 ML IVCONT (09:16)
--- NOTE | 2023-11-14 09:18 | P.HPSUR_ITS ---
Pre-Procedural Eval Section A - 24 Hr Update-Section A only Date of Service: 11/14/23 Section B - Complete if H&P > 30 days Chief Complaint: Benign neoplasm of colon, unspecified Relevant Family History (Specify if Yes): No Relevant Social History: None Present Medications: see Short Stay Collaborative assessment Medical History: Significant History (Type 2 diabetes mellitus with diabetic autonomic (poly)neuropathy Hypovitaminosis D Mild recurrent major depression Polyarthralgia Left knee pain Dyslipidemia) History of Previous Operations: Relevant previous surgery/procedure and date(s) (H/O arthroscopy of left knee History of left knee surgery History of total right knee replacement H/O prior ablation treatment History of partial hysterectomy History of tubal ligation Hx of arthroplasty Hx of cardiac cath History of carpal tunnel release Hx of shoulder surgery Hx of sectio) Allergies: Allergies Allergy/AdvReac Type Severity Reaction Status Date / Time atorvastatin Allergy Intermediate elevated Verified 10/17/23 11:03 liver enzymes cortisone [CORTISONE] Allergy Intermediate SWELLING Verified 10/17/23 11:03 Penicillins [PENICILLINS] Allergy Mild RASH Verified 10/17/23 11:03 Review of Systems Sugical H&P ROS: Negative: Constitution, Cardiovascular, Respiratory, Neurological, Psychiatric, Hem-Onc, Allergic/Immunologic, Gastrointestinal, Genitourinary, Musculoskeletal, Integumentary, Endocrine and Eyes/Ears/Nose/Thro at Exam Surgical H&P Exam: Normal: HEENT, Normal: Heart, Normal: Lungs, Normal: Extremities, Normal: Abdomen, Normal: Skin and Normal: Neurological Plan Diagnosis/Plan: Unchanged I have reviewed the history and physical and performed a pertinent physical examination on my patient. No changes have occurred unless specified. Time Spent With Patient Time: Total time managing care of this patient today ____ minutes.
[2023-11-14 09:40] LABS: Glucose, Whole Blood 92 mg/dL (60-115)
--- NOTE | 2023-11-14 10:43 | P.OP_ITS ---
Operative Note Operative Note Date of Service: 11/14/23 Narrative: Operative Information Procedure Description: Colonoscopy Indication: screening Anesthesia: MAC COLONOSCOPY Instrument: Olympus variable stiffness pediatric scope 190L Colonoscopy Monitoring: Vital signs and clinical assessment, continuous EKG monitoring, Pulse oximetry, Carbon Dioxide monitoring and blood pressure monitoring were done throughout the procedure. Colon withdrawal time was 11 minutes. Procedure: The patient was placed in the left lateral decubitis position and pre-procedure medications were administered. After a digital rectal examination of the ano-rectum, the video colonoscope was inserted into the rectum and advanced through the colon to the cecum/TI. The colonoscope was slowly withdrawn in a retrograde panoramic fashion and the colon mucosa was carefully examined including a retroflexed view of the rectum. Findings and interventions are described below. Procedure Difficulty: difficult, pressure applied and put on her back Findings: Terminal Ileum-normal Cecum: x2 sessile polyps 2-3 mm removed with cold forceps Ascending Colon: normal Transverse Colon -normal Descending Colon:normal Sigmoid Colon: normal Rectum: Retroflexion with small internal hemorrhoids seen, grade I Anorectum - normal Intervention: cold forceps Colon preparation: [place] Bowel Preparation Scale Right colon; 1-2 Transverse colon: 1-2 Left colon; 1-2 (0 = Unprepared colon segment with mucosa not seen due to solid stool that cannot be cleared. 1 = Portion of mucosa of the colon segment seen, but other areas of the colon segment not well seen due to staining, residual stool and/or opaque liquid. 2 = Minor amount of residual staining, small fragments of stool and/or opaque liquid, but mucosa of colon segment seen well. 3 = Entire mucosa of colon segment seen well with no residual staining, small fragments of stool or opaque liquid) Impression and Post Procedure Diagnosis: colon polyps internal hemorrhoids Plan: High fiber diet leaflet Avoid straining at stool, epsom salts and sitz bath, anusol supps or cream Repeat Colonoscopy in 1-2 years due to fair prep or earlier if clinically indicated Above findings were reviewed with the patient and relevant handouts were provided if indicated.
[2023-11-14 10:48] VITALS: BP 105/52; BP 128/59; PULSE 61; PULSE 65; RESP 16; RESP 17; TEMP 36.1; TEMP 36.2; O2SAT 100; O2SAT 98
== END 2023-11-14 12:12 | disposition home or self-care (01) ==
PROVIDERS: PCP Internal Medicine; Visit Provider Internal Medicine Gastroenterology
PROC: 0DJD8ZZ Inspection of Lower Intestinal Tract, Via Natural or Artificial Opening Endoscopic (ICD-10-PCS; CPT 45378; principal; 2023-11-14 10:10)
DX: Z12.11 Encounter for screening for malignant neoplasm of colon (principal); Z86.010 Personal history of colon polyps; D12.0 Benign neoplasm of cecum; K64.0 First degree hemorrhoids; K59.04 Chronic idiopathic constipation; E78.5 Hyperlipidemia, unspecified; E11.43 Type 2 diabetes mellitus with diabetic autonomic (poly)neuropathy; Z79.84 Long term (current) use of oral hypoglycemic drugs; E55.9 Vitamin D deficiency, unspecified; F33.0 Major depressive disorder, recurrent, mild; Z88.0 Allergy status to penicillin; Z88.8 Allergy status to other drugs, medicaments and biological substances; Z98.890 Other specified postprocedural states
CPT/HCPCS: 45380; 82947; 88305; J2704

== ENCOUNTER → 2023-11-14 07:48 | Outpatient (BNV) | payer MEDICARE, SELFPAY | PROVIDERS: PCP Internal Medicine; Visit Provider Internal Medicine Gastroenterology | DX: Z12.11 Encounter for screening for malignant neoplasm of colon (principal); D12.0 Benign neoplasm of cecum; K64.0 First degree hemorrhoids | CPT/HCPCS: 45380 ==

== ENCOUNTER 2023-11-28 09:28 | Outpatient (AMB) | payer OTHER, SELFPAY ==
--- NOTE | 2023-11-28 09:30 | A.OFFVIS_ITS ---
Vital Signs 11/28/23 09:31 Height 5 ft 6 in Weight 167 lb 15.876 oz BMI 27.1 BP 116/59 L Blood Pressure Location Lt brachial Position Sitting Pulse 80 Intake Visit Reasons: S/P [place]; Dr. Kramer Intake Note: Patietn in office today in follow up s/p colonoscopy. CC: Denies having any GI concerns or symptoms today. Allergies atorvastatin Allergy (Intermediate, Verified 10/17/23 11:03) elevated liver enzymes cortisone [CORTISONE] Allergy (Intermediate, Verified 10/17/23 11:03) SWELLING Penicillins [PENICILLINS] Allergy (Mild, Verified 10/17/23 11:03) RASH HPI HPI S/P [place]; Dr. Kramer: Details: Assessment & Plan (1) Chronic idiopathic constipation: Code(s): K59.04 - Chronic idiopathic constipation (2) GERD (gastroesophageal reflux disease): Code(s): K21.9 - Gastro-esophageal reflux disease without esophagitis Qualifiers: Esophagitis presence: esophagitis presence not specified Qualified Code(s): K21.9 - Gastro-esophageal reflux disease without esophagitis (3) Gastroparesis: Code(s): K31.84 - Gastroparesis (4) Tubular adenoma of colon: Comment: 2017n scope repeat 5 years A. GASTRIC ANTRAL-TYPE AND FUNDIC-TYPE MUCOSA WITH NO DIAGNOSTIC ABNORMALITY. AN IMMUNOSTAIN FOR HELICOBACTER PYLORI IS NEGATIVE FOR ORGANISMS. B. TUBULAR ADENOMA. C. TUBULAR ADENOMA. Code(s): D12.6 - Benign neoplasm of colon, unspecified (5) Pre-op examination: Code(s): Z01.818 - Encounter for other preprocedural examination Plan [place] #Kristel LIve She. continues to do well, but had a change in her insurance and they are not covering her senna. I explained that this is common in she is probably going to have to buy it [id number], the good news is it is pretty inexpensive. She think she may need a prior approval for her Linzess so will check into this. She also continues on her metoclopramide, omeprazole, and Colace. She is due for screening colonoscopy because of her history of tubular adenoma so will get this ordered today. There are no prior problems with anesthesia or sedation. She denies any cardiac or respiratory problems. No ID problems.. ROV 6 mos and after colonoscopy. . Orders: Orders Colonoscopy - GI Use Only Today Medications: New sodium,potassium,mag sulfates 17.5-3.13-1.6 gram (Suprep Bowel Prep Kit) 480 mL orally; 354 mL 0RF D12.6 - Benign neoplasm of colon, unspecified Changed From linaclotide PLEASE DISREGARD THE SCRIPT FOR TRULANCE, THE PT IS ON LINZESS!! CHART ERROR 290 mcg PO DAILY 30 days 30 caps 6RF K59.04 - Chronic idiopathic constipation To linaclotide 290 mcg PO DAILY 30 days 30 caps 6RF K59.04 - Chronic idiopathic constipation Refilled omeprazole 40 mg PO BID 60 caps 6RF K21.9 - Gastro-esophageal reflux disease without esophagitis sennosides (senna) 17.2 mg (2 x 8.6 mg) PO BEDTIME PRN 60 tabs 6RF for constipation metoclopramide HCl 5 mg PO QID 120 tabs 6RF K31.84 - Gastroparesis COLONOSCOPY 11/14/23 Findings: Terminal Ileum-normal Cecum: x2 sessile polyps 2-3 mm removed with cold forceps Ascending Colon: normal Transverse Colon -normal Descending Colon:normal Sigmoid Colon: normal Rectum: Retroflexion with small internal hemorrhoids seen, grade I Anorectum - normal Intervention: cold forceps Impression and Post Procedure Diagnosis: colon polyps internal hemorrhoids Plan: High fiber diet leaflet Avoid straining at stool, epsom salts and sitz bath, anusol supps or cream Repeat Colonoscopy in 1-2 years due to fair prep or earlier if clinically indicated BIOPSY Received: 11/14/23 Diagnosis Colon, cecal polyps: Tubular adenoma (1 piece); negative for high-grade dysplasia and carcinoma. TODAYS VISIT [place] #Balaji Live She is agreeable to the 2 year repeat. The procedure was well tolerated. The results were explained and the patient is agreeable to the follow-up interval as stated. The bowel pattern has returned to normal. Education was provided to tell any 1st degree relatives about their findings to be sure that they are screened by age 45. Educated that they will be put on a recall list when it is time for their repeat scope but should they move out of state or away from the hospital they will need to remember along with their primary to repeat the proce dure in a timely fashion to avoid any adverse complications. Continues to do well on her medications. She continues on her Colace 100 mg twice a day, Linzess 290 micro g daily, metoclopramide 5 mg 4 times a day, omeprazole 40 mg twice a day and senna 2 tablets at bedtime as needed. ROV 6 mos. PFSH Medical History (Updated 11/28/23 @ 15:51 by LUDWIG Beebe) Type 2 diabetes mellitus with diabetic autonomic (poly)neuropathy Hypovitaminosis D Mild recurrent major depression Polyarthralgia Left knee pain Dyslipidemia Surgical History (Updated 11/28/23 @ 09:36 by Jhoan Rendon [facility]) H/O arthroscopy of left knee History of left knee surgery History of total right knee replacement H/O prior ablation treatment History of partial hysterectomy History of tubal ligation Hx of arthroplasty Hx of cardiac cath History of carpal tunnel release Hx of shoulder surgery Hx of section History of bladder surgery Hx of colonoscopy History of esophagogastroduodenoscopy (EGD) Family History Father CVD (cardiovascular disease) Mother Diabetes Hypertension Son No problems noted. Daughter No problems noted. Daughter No problems noted. Family/Other Mental health disorder Social History Housing: Apartment Alcohol intake: never Patient Tobacco Use Status: Never used Tobacco e-Cigarette/Vaping Use: Never Used Second Hand Smoke Exposure: No service: No Current occupational status: unemployed Cognitive needs: No Hearing needs: No Vision needs: No Review of Systems Eyes Details: glasses Physical Exam Vital Signs: Last Vital Signs Pulse 80 11/28/23 09:31 BP 116/59 L 11/28/23 09:31 BMI result Body Mass Index 27.1 Extrem Other: insulin sensor right upper arm Results Reviewed Results Reviewed: COLONOSCOPY 11/14/23 Findings: Terminal Ileum-normal Cecum: x2 sessile polyps 2-3 mm removed with cold forceps Ascending Colon: normal Transverse Colon -normal Descending Colon:normal Sigmoid Colon: normal Rectum: Retroflexion with small internal hemorrhoids seen, grade I Anorectum - normal Intervention: cold forceps Impression and Post Procedure Diagnosis: colon polyps internal hemorrhoids Plan: High fiber diet leaflet Avoid straining at stool, epsom salts and sitz bath, anusol supps or cream Repeat Colonoscopy in 1-2 years due to fair prep or earlier if clinically indicated BIOPSY Received: 11/14/23 Diagnosis Colon, cecal polyps: Tubular adenoma (1 piece); negative for high-grade dysplasia and carcinoma. Assessment & Plan Assessment & Plan (1) Tubular adenoma of colon: Comment: 2022 scope= TA repeat in 5 years; 2016n scope repeat 5 years A. GASTRIC ANTRAL-TYPE AND FUNDIC-TYPE MUCOSA WITH NO DIAGNOSTIC ABNORMALITY. AN IMMUNOSTAIN FOR HELICOBACTER PYLORI IS NEGATIVE FOR ORGANISMS. B. TUBULAR ADENOMA. C. TUBULAR ADENOMA. Code(s): D12.6 - Benign neoplasm of colon, unspecified Category: Medical (2) Chronic idiopathic constipation: Code(s): K59.04 - Chronic idiopathic constipation Category: Medical (3) GERD (gastroesophageal reflux disease): Code(s): K21.9 - Gastro-esophageal reflux disease without esophagitis Category: Medical Qualifiers: Esophagitis presence: esophagitis presence not specified Qualified Code(s): K21.9 - Gastro-esophageal reflux disease without esophagitis (4) Gastroparesis: Code(s): K31.84 - Gastroparesis Category: Medical Plan [place] #Tachira Live She is agreeable to the 2 year repeat. The procedure was well tolerated. The results were explained and the patient is agreeable to the follow-up interval as stated. The bowel pattern has returned to normal. Education was provided to t ell any 1st degree relatives about their findings to be sure that they are screened by age 45. Educated that they will be put on a recall list when it is time for their repeat scope but should they move out of state or away from the hospital they will need to remember along with their primary to repeat the procedure in a timely fashion to avoid any adverse complications. Continues to do well on her medications. She continues on her Colace 100 mg twice a day, Linzess 290 micro g daily, metoclopramide 5 mg 4 times a day, omeprazole 40 mg twice a day and senna 2 tablets at bedtime as needed. ROV 6 mos. Medications: Refilled linaclotide 290 mcg PO DAILY 30 caps 6RF 30 days K59.04 - Chronic idiopathic constipation docusate sodium 100 mg PO BID PRN 60 caps 8RF for constipation metoclopramide HCl 5 mg PO QID 120 tabs 6RF K31.84 - Gastroparesis omeprazole 40 mg PO BID 60 caps 6RF K21.9 - Gastro-esophageal reflux disease without esophagitis sennosides (senna) 17.2 mg (2 x 8.6 mg) PO BEDTIME PRN 60 tabs 6RF for constipation Coding Level of Care Code Est Pt Level 3 (51240) Diagnoses Tubular adenoma of colon D12.6 Chronic idiopathic constipation K59.04 Gastroesophageal reflux disease, unspecified whether esophagitis present K21.9 Esophagitis presence: esophagitis presence not specified Gastroparesis K31.84
[2023-11-28 09:31] VITALS: BP 116/59; PULSE 80; BMI 27.1
== END 2023-11-28 09:43 | disposition home or self-care (01) ==
PROVIDERS: PCP Internal Medicine; Visit Provider Nurse Practitioner
DX: D12.6 Benign neoplasm of colon, unspecified (principal); K59.04 Chronic idiopathic constipation; K21.9 Gastro-esophageal reflux disease without esophagitis; K31.84 Gastroparesis
CPT/HCPCS: 99213

== ENCOUNTER → 2023-11-28 09:28 | Outpatient (BNVA) | payer OTHER, SELFPAY | PROVIDERS: PCP Internal Medicine; Visit Provider Nurse Practitioner | DX: K59.04 Chronic idiopathic constipation (principal); K21.9 Gastro-esophageal reflux disease without esophagitis; K31.84 Gastroparesis; D12.6 Benign neoplasm of colon, unspecified | CPT/HCPCS: 99212 ==

== ENCOUNTER 2024-02-27 16:34 | Outpatient (AMB) | payer MEDICARE, SELFPAY ==
--- NOTE | 2024-02-27 16:55 | A.OFFPC_ITS ---
Vital Signs 02/27/24 16:56 Height 5 ft 6 in Weight 168 lb BMI 27.1 BP 118/70 Blood Pressure Location Lt brachial Position Sitting Intake Visit Reasons: physical exam Intake Note: Patient here for a physical exam Test Bore Helper Required: No Accompanied by: Daughter Allergies atorvastatin Allergy (Intermediate, Verified 02/27/24 17:02) elevated liver enzymes cortisone [CORTISONE] Allergy (Intermediate, Verified 02/27/24 17:02) SWELLING Penicillins [PENICILLINS] Allergy (Mild, Verified 02/27/24 17:02) RASH Medication List - Last Reconciled 02/27/24 by Gwendolyn Lind MD amitriptyline 20 mg (2 x 10 mg) PO DAILY aripiprazole 5 mg PO DAILY blood sugar diagnostic (Blownawayuch Ultra Test strips) Use 1 test strip once a day blood-glucose meter (Blownawayuch Ultra2 Meter) As directed bupropion HCl XL 300 mg PO BEDTIME buspirone 10 mg PO DAILY clonidine HCl 0.2 mg PO BEDTIME clonidine HCl 0.1 mg PO BID dapagliflozin propanediol (Farxiga) 5 mg PO DAILY 90 days docusate sodium 100 mg PO BID PRN ezetimibe 10 mg PO DAILY 90 days flash glucose sensor (FreeStyle Tre 14 Day Sensor kit) As directed fluoxetine 60 mg PO QAM gabapentin 600 mg PO TID 30 days lancets (RevelationTouch UltraSoft 2 Lancet) Use 1 lancet twice a day linaclotide 290 mcg PO DAILY 30 days meclizine 25 mg PO TID PRN 30 days metformin ER 1,000 mg (2 x 500 mg) PO BID 90 days metoclopramide HCl 5 mg PO QID omeprazole 40 mg PO BID rosuvastatin 10 mg PO DAILY 90 days sennosides (senna) 17.2 mg (2 x 8.6 mg) PO BEDTIME PRN trazodone 100 mg PO BEDTIME Tobacco use date assessed: 10/17/23 Fall risk assessment: No Falls in past year Last assessed Fall Risk: 02/27/24 Dental Screening Dental Screen Date: 10/17/23 HPI HPI Comments History of Present Illness Details This is a 68-year-old female with mild recurrent major depression and diabetes mellitus type 2 that comes today accompanied by daughter Rosa for her physical exam. Depression stable with medications. A1c within goal. Mammogram done 2023 was normal. DEXA scan done 2023 shows osteopenia. Colonoscopy done 2023 shows tubular adenoma. No need for Pap smear due to age. Complains of blurry vision and would like new glasses. ON LICENSE OF [facility] Medical History Type 2 diabetes mellitus with diabetic autonomic (poly)neuropathy Hypovitaminosis D Mild recurrent major depression Polyarthralgia Left knee pain Dyslipidemia Surgical History H/O arthroscopy of left knee History of left knee surgery History of total right knee replacement H/O prior ablation treatment History of partial hysterectomy History of tubal ligation Hx of arthroplasty Hx of cardiac cath History of carpal tunnel release Hx of shoulder surgery Hx of section History of bladder surgery Hx of colonoscopy History of esophagogastroduodenoscopy (EGD) Family History Father CVD (cardiovascular disease) Mother Diabetes Hypertension Son No problems noted. Daughter No problems noted. Daughter No problems noted. Family/Other Mental health disorder Social History Housing: Apartment Alcohol intake: never Patient Tobacco Use Status: Never used Tobacco e-Cigarette/Vaping Use: Never Used Second Hand Smoke Exposure: No service: No Current occupational status: unemployed Cognitive needs: No Hearing needs: No Vision needs: No Questionnaire Thrive Questionnaire Date Thrive assessed: 10/17/23 TEO-7 AMB Questionnaire TEO-7 Date TEO - 7 assessed: 10/17/23 Source: Developed by Drs. Prosper North, Mickie Almonte, Cb Melara and colleagues, with an educational john from [employer]. Review of Systems Const All systems reviewed & are unremarkable except as noted in HPI and below Card Denies chest pain at rest, Denies chest pain with activity, Denies edema, Denies irregular heart rhythm, Denies claudication, Denies dyspnea, Denies dyspnea on exertion, Denies orthopnea, Denies paroxysmal nocturnal dyspnea and Denies slow heart rate Resp Denies cough, Denies dyspnea and Denies dyspnea on exertion Physical exam (Primary Care) Vital Signs: Last Vital Signs BP 118/70 02/27/24 16:56 BMI result Body Mass Index 27.1 Tobacco/Smoking Status: Tobacco use Status Tobacco use date assessed 10/17/23 02/27/24 16:59 Patient Tobacco Use Status Never used Tobacco 02/27/24 16:59 e-Cigarette/Vaping Use Never Used 02/27/24 16:59 Thrive Assessment: Date of Thrive Assessment Date Thrive assessed 10/17/23 02/27/24 16:59 HENMT Head: Yes normal to inspection, Yes normocephalic and Yes atraumatic Ears: external ears normal Eyes General: appearance normal, both eyes and all related structures Eyelids: Yes eyelids normal Conjunctivae: conjunctivae normal Neck Neck: Yes normal visual inspection and Yes supple Resp Effort & Inspection: normal respiratory effort Auscultation: clear to auscultation bilaterally Cardio Jugular venous distension: no JVD Rate: regular rate Rhythm: regular rhythm Heart sounds: S1 normal heart sound present and S2 normal heart sound present GI Inspection: Yes normal to inspection Palpation (GI): Soft to palpation and nontender Auscultation: normal bowel sounds Skin General skin exam: no rashes or lesions noted Neuro General: no focal motor deficits Extrem General: Yes full ROM Psych Appearance: grossly normal Results AMB Hemoglobin A1c AMB Hemoglobin A1c 6.0 % Last Edit by MOSES Lau on 02/27/24 17:0 3 Results Reviewed Results Reviewed: Laboratory Last Values Hgb A1c (Clinic) 6.0 % (4.0-6.0) 02/27/24 16:50 Assessment and Plan Assessment & Plan (1) Physical exam: Code(s): Z00.00 - Encounter for general adult medical examination without abnormal findings Plan: Repeat in a year. (2) Diabetes mellitus: Code(s): E11.9 - Type 2 diabetes mellitus without complications Qualifiers: Diabetes mellitus type: type 2 Diabetes mellitus chcf insulin use: without organizational effectiveness consultant use Diabetes mellitus complication status: without complication Qualified Code(s): E11.9 - Type 2 diabetes mellitus without complications Plan: Continue metformin. A1c goal is equal or less than 7%. (3) Mild recurrent major depression: Code(s): F33.0 - Major depressive disorder, recurrent, mild Plan: Continue amitriptyline and Abilify. Follow-up with psychiatry. (4) Blurry vision: Code(s): H53.8 - Other visual disturbances Plan: Referred to Ophthalmology. Orders: Orders AMB Hemoglobin A1c Today E11.9 - Type 2 diabetes mellitus without complications Lipid Panel 4 Months E78.5 - Hyperlipidemia, unspecified Microalbumin, Random (w Creat) 4 Months E11.9 - Type 2 diabetes mellitus without complications Vitamin D 25-OH Total 4 Months E55.9 - Vitamin D deficiency, unspecified Comprehensive [place]. Panel Fast 4 Months E11.9 - Type 2 diabetes mellitus without complications Referrals Ophthalmology Referral H53.8 - Other visual disturbances Coding Level of Care Code Est Pt Level 3 (83099) Est Pt Prev Care >65y(23422) Diagnoses Physical exam Z00.00 Type 2 diabetes mellitus without complication, without long-term current use of insulin E11.9 Diabetes mellitus type: type 2 Diabetes mellitus chcf insulin use: without organizational effectiveness consultant use Diabetes mellitus complication status: without complication Mild recurrent major depression F33.0 Blurry vision H53.8 Time Spent (min) 32
[2024-02-27 16:56] VITALS: BP 118/70; BMI 27.1
== END 2024-02-27 17:16 | disposition home or self-care (01) ==
PROVIDERS: PCP Internal Medicine; Visit Provider Internal Medicine
DX: Z00.00 Encounter for general adult medical examination without abnormal findings (principal); E11.9 Type 2 diabetes mellitus without complications; F33.0 Major depressive disorder, recurrent, mild; H53.8 Other visual disturbances
CPT/HCPCS: 83036; 99397

== ENCOUNTER 2024-07-29 10:03 | Outpatient (REF) | payer MEDICARE, SELFPAY ==
[2024-07-29 11:38] LABS: Alanine Aminotransferase 68 U/L (0-31); Albumin Level 4.1 g/dL (3.5-5.0); Alkaline Phosphatase 80 U/L (39-117); Anion Gap 13 (12-20); Aspartate Amino Transferase 53 U/L (5-31); Bilirubin Total 0.4 mg/dL (0.0-1.0); Blood Urea Nitrogen 14 mg/dL (9-16); Calcium 9.5 mg/dL (8.4-10.2); Carbon Dioxide 28 mmol/L (22-29); Chloride 106 mmol/L (96-108); Cholesterol 131 mg/dL (<200); Estimated Glomerular Filt Rate > 60; Glucose Fasting 90 mg/dL (60-99); HDL Cholesterol 70 mg/dL (>40); LDL Cholesterol Calculated 46 mg/dL (<100); Potassium 4.3 mmol/L (3.3-5.1); Sodium 143 mmol/L (135-145); Total Protein 7.3 g/dL (6.5-8.0); Triglycerides 77 mg/dL (<150)
[2024-07-29 11:57] LABS: Vitamin D 25-OH Total 43.5 ng/mL (>30)
[2024-07-29 12:47] LABS: Creatinine Urine 114.37 mg/dL; Microalbum/Creatinine Ratio Ur 10.4 ug/mg cr (<30)
== END 2024-07-29 10:04 | disposition home or self-care (01) ==
LOC: HO.LAB 10:03
PROVIDERS: PCP Internal Medicine; Visit Provider Internal Medicine
DX: E11.9 Type 2 diabetes mellitus without complications (principal); E78.5 Hyperlipidemia, unspecified; E55.9 Vitamin D deficiency, unspecified
CPT/HCPCS: 36415; 80053; 80061; 82043; 82306; 82570

== ENCOUNTER 2024-08-06 15:10 | Outpatient (AMB) | payer MEDICARE, SELFPAY ==
--- NOTE | 2024-08-06 15:21 | MHC.PC.OV ---
Vital Signs 08/06/24 15:24 Height 5 ft 6 in Weight 163 lb BMI 26.3 BP 126/70 Blood Pressure Location Lt brachial Position Sitting Intake Visit Reasons: 4 MONTH dm Intake Note: Patient here for a 4 month follow up DM [place] Required: Yes Orchard Hand Language: Crushing Foreman Name: Gwendolyn Lind MD Information Interpreted: non-clinical & clinical Accompanied by: Daughter Allergies atorvastatin Allergy (Intermediate, Verified 08/06/24 15:38) elevated liver enzymes cortisone [CORTISONE] Allergy (Intermediate, Verified 08/06/24 15:38) SWELLING Penicillins [PENICILLINS] Allergy (Mild, Verified 08/06/24 15:38) RASH Medication List - Last Reconciled 08/06/24 by Gwendolyn Lind MD amitriptyline 20 mg (2 x 10 mg) PO DAILY aripiprazole 5 mg PO DAILY blood sugar diagnostic (Placesteruch Ultra Test strips) Use 1 test strip once a day blood-glucose meter (Placesteruch Ultra2 Meter) As directed bupropion HCl XL 300 mg PO BEDTIME buspirone 10 mg PO DAILY clonidine HCl 0.2 mg PO BEDTIME clonidine HCl 0.1 mg PO BID dapagliflozin propanediol (Farxiga) 5 mg PO DAILY 90 days docusate sodium 100 mg PO BID PRN ezetimibe 10 mg PO DAILY 90 days flash glucose sensor (FreeStyle Tre 14 Day Sensor kit) As directed fluoxetine 60 mg PO QAM gabapentin 600 mg PO TID 30 days lancets (OneTouch UltraSoft 2 Lancet) Use 1 lancet twice a day linaclotide (Linzess) 290 mcg PO DAILY meclizine 25 mg PO TID PRN 30 days metformin ER 1,000 mg (2 x 500 mg) PO BID 90 days metoclopramide HCl 5 mg PO QID omeprazole 40 mg PO BID rosuvastatin 10 mg PO DAILY 90 days sennosides (senna) 17.2 mg (2 x 8.6 mg) PO BEDTIME PRN trazodone 100 mg PO BEDTIME Tobacco use date assessed: 08/06/24 Fall risk assessment: No Falls in past year Last assessed Fall Risk: 08/06/24 Dental Screening Dental Screen Date: 08/06/24 Did you have a dental visit in the last 12 months?: Yes Did you have a dental problem in the last 6 months where you did not have access to dental care?: No Was dental information given to patient?: Patient has dentist HPI HPI Comments History of Present Illness Details The patient is a 68-year-old female presenting to monitor her chronic conditions, including Type 2 Diabetes Mellitus and Hyperlipidemia. The patient has a notable history of Type 2 Diabetes Mellitus, with her most recent Hemoglobin A1c reported at 6%, indicating good glycemic control. She also has Hyperlipidemia, with a recorded LDL of 46 mg/dL, which is within the target range. Past treatments for her Hyperlipidemia include the use of rosuvastatin, currently administered at 10 mg. However, due to mildly elevated liver enzymes, there is an indication to reduce this to 5 mg. The patient has been consistent with her medication regimen, including acetamide, and has shown stability in her condition over time. She also has diabetic gastroparesis and constipation follow by Gastroenterology. Has mild major depression with anxiety follow by Psychiatry. Complains of vertigo and use meclizine as needed with great relief. [facility] Medical History Type 2 diabetes mellitus with diabetic autonomic (poly)neuropathy Hypovitaminosis D Mild recurrent major depression Polyarthralgia Left knee pain Dyslipidemia Surgical History H/O arthroscopy of left knee History of left knee surgery History of total right knee replacement H/O prior ablation treatment History of partial hysterectomy History of tubal ligation Hx of arthroplasty Hx of cardiac cath History of carpal tunnel release Hx of shoulder surgery Hx of section History of bladder surgery Hx of colonoscopy History of esophagogastroduodenoscopy (EGD) Family History Father CVD (cardiovascular disease) Mother Diabetes Hypertension Son No problems noted. Daughter No problems noted. Daughter No problems noted. Family/Other Mental health disorder Social History Housing: Apartment Alcohol intake: never Patient Tobacco Use Status: Never used Tobacco e-Cigarette/Vaping Use: Never Used Second Hand Smoke Exposure: No service: No Current occupational status: unemployed Cognitive needs: No Hearing needs: No Vision needs: No Questionnaire PHQ-9 Over the last 2 weeks, how often have you been bothered by any of the following problems? 1. Little interest or pleasure in doing things: not at all 2. Feeling down, depressed, or hopeless: not at all 3. Trouble falling or staying asleep, or sleeping too much: not at all 4. Feeling tired or having little energy: not at all 5. Poor appetite or overeating: not at all 6. Feeling bad about yourself - or that you are a failure or have let yourself or your family down: not at all 7. Trouble concentrating on things, such as reading the newspaper or watching television: not at all 8. Moving or speaking so slowly that other people could have noticed. Or the opposite - being so fidgety or restless that you have been moving around a lot more than usual: not at all 9. Thoughts that you would be better off or of hurting yourself in some way: not at all Total score: 0 Depression Screening Interpretation: Negative Depression Screening Done: Yes 02322 - PHQ-9 Billing: Yes Source: Developed by Drs. Prosper North, Mickie Almonte, Cb Melara and colleagues, with an educational john from [employer]. Thrive Questionnaire Date Thrive assessed: 08/06/24 I am a: Patient What is your living situation today?: I have a steady place to live Within the past 12 months, did the food you bought not last and you didn't have the money to get more?: Never true Within the past 12 months, did you worry whether your food would run out before you got money to buy more?: Never true Do you have trouble paying for medicines?: No Do you have trouble getting transportation to medical appointments?: No Do you have trouble paying your heating and electricity bill?: No Do you have trouble taking care of your child, family member or friend?: No Do you have trouble with day-to-day activities such as bathing, preparing meals, shopping, managing finances, etc.?: No Are you currently unemployed and looking for a job?: No Are you interested in more education?: No Please select the resources that you would like help with: None Currently or been in a relationship where the following occur: No concerns reported THRIVE Score: 0 AUDIT C Alcohol Use Questionnaire (AUDIT-C) 1. How often do you have a drink containing alcohol?: Never Total Score: 0 Score Reviewed/Action Taken: No TEO-7 AMB Questionnaire TEO-7 Date TEO - 7 assessed: 08/06/24 Feeling nervous, anxious, or on edge: 0 = Not at all Not being able to stop or control worryin = Not at all Worrying too much about different things: 0 = Not at all Trouble relaxin = Not at all Being so restless that it is hard to sit still: 0 = Not at all Becoming easily annoyed or irritable: 0 = Not at all Feeling afraid as if something awful might happen: 0 = Not at all Total TEO-7 score (0-4 normal; 5-9 mild; 10-14 moderate; 15-21 severe): 0 Source: Developed by Drs. Prosper North, Mickie Almonte, Cb Melara and colleagues, with an educational john from [employer]. TEO-7 Assessment Billing TEO-7 Assessment Tool: TEO-7 Assessment 03688 Review of Systems Const All systems reviewed & are unremarkable except as noted in HPI and below Card Denies chest pain at rest, Denies chest pain with activity, Denies edema, Denies irregular heart rhythm, Denies claudication, Denies dyspnea, Denies dyspnea on exertion, Denies orthopnea, Denies paroxysmal nocturnal dyspnea and Denies slow heart rate Resp Denies cough, Denies dyspnea and Denies dyspnea on exertion GI Denies abdominal pain, Denies change in bowel habits, Denies excessive flatus, Denies nausea and Denies vomiting Physical exam (Primary Care) Vital Signs: Last Vital Signs BP 126/70 08/06/24 15:24 BMI result Body Mass Index 26.3 Tobacco/Smoking Status: Tobacco use Status Tobacco use date assessed 08/06/24 08/06/24 15:32 Patient Tobacco Use Status Never used Tobacco 08/06/24 15:24 e-Cigarette/Vaping Use Never Used 08/06/24 15:24 PHQ-9: PHQ-9 Score PHQ-9: Total score 0 08/06/24 15:39 Depression Screening Interpretation: Negative Thrive Assessment: Date of Thrive Assessment Date Thrive assessed 08/06/24 08/06/24 15:24 Currently or been in a relationship where the following occur: No concerns reported Resp Effort & Inspection: normal respiratory effort Auscultation: clear to auscultation bilaterally Cardio Jugular venous distension: no JVD Rate: regular rate Rhythm: regular rhythm Heart sounds: S1 normal heart sound present and S2 normal heart sound present Extrem General: Yes full ROM Results AMB Hemoglobin A1c AMB Hemoglobin A1c 6.0 % Last Edit by MOSES Lau on 08/06/24 15:37 Results Reviewed Results Reviewed: Laboratory Last Values Hgb A1c (Clinic) 6.0 % (4.0-6.0) 08/06/24 15:25 Coding Level of Care Code Est Pt Level 4 (38355) Complex EM visit Add On G2211 Diagnoses Type 2 diabetes mellitus without complication, without long-term current use of insulin E11.9 Diabetes mellitus type: type 2 Diabetes mellitus long term care pharmacist insulin use: without usp use Diabetes mellitus complication status: without complication Mild recurrent major depression F33.0 Dyslipidemia E78.5 Gastroesophageal reflux disease, unspecified whether esophagitis present K21.9 Esophagitis presence: esophagitis presence not specified Chronic idiopathic constipation K59.04 Gastroparesis K31.84 Additional Codes TEO-7 Assessment Billing - TEO-7 Assessment Tool: TEO-7 Assessment 31994 ([id number]) PHQ-9 - 51776 - PHQ-9 Billing: Yes ([id number]) Time Spent (min) 22 Assessment & Plan Assessment & Plan (1) Diabetes mellitus: Code(s): E11.9 - Type 2 diabetes mellitus without complications Category: Medical Qualifiers: Diabetes mellitus type: type 2 Diabetes mellitus usp insulin use: without long term care pharmacist use Diabetes mellitus complication status: without complication Qualified Code(s): E11.9 - Type 2 diabetes mellitus without complications (2) Mild recurrent major depression: Code(s): F33.0 - Major depressive disorder, recurrent, mild Category: Medical (3) Dyslipidemia: Code(s): E78.5 - Hyperlipidemia, unspecified Category: Medical (4) GERD (gastroesophageal reflux disease): Code(s): K21.9 - Gastro-esophageal reflux disease without esophagitis Category: Medical Qualifiers: Esophagitis presence: esophagitis presence not specified Qualified Code(s): K21.9 - Gastro-esophageal reflux disease without esophagitis (5) Chronic idiopathic constipation: Code(s): K59.04 - Chronic idiopathic constipation Category: Medical (6) Gastroparesis: Code(s): K31.84 - Gastroparesis Category: Medical Plan - Decrease rosuvastatin from 10 mg to 5 mg due to elevated liver enzymes. - Continue acetamide as part of lipid management. - Order liver function tests in the subsequent visit to monitor enzyme levels. - A1c goal is equal or less than 7% and LDL goal is less than 70. Blood pressure goal is less than 130/80. Patient was informed and verbally consented to the use of an ambient scribe for clinic note documentation during this visit. During the visit, we discussed the importance of maintaining optimal control of Type 2 Diabetes Mellitus, emphasizing the significance of lifestyle modifications alongside pharmacological management. I explained to the patient that her current Hemoglobin A1c level is favorable and reflects excellent diabetes control. Regarding Hyperlipidemia management, we discussed reducing her rosuvastatin dose due to liver enzyme alterations, and the need to continue monitoring these levels to prevent potential liver complications. The patient was receptive to the proposed medication adjustments, and we outlined the plan to conduct further liver function assessments in our next meeting. Orders: Orders AMB Hemoglobin A1c Today E11.9 - Type 2 diabetes mellitus without complications Medications: New rosuvastatin 5 mg PO DAILY 90 days 90 tabs 1RF metformin ER 750 mg PO BID 90 days 180 tabs 1RF cholecalciferol (vitamin D3) 25 mcg PO DAILY 90 days 90 caps 1RF Discontinued rosuvastatin Discontinued Reason: Patient Completed Course 10 mg PO DAILY 90 days 90 tabs 5RF metformin ER Discontinued Reason: Patient Completed Course 1,000 mg (2 x 500 mg) PO BID 90 days 360 tabs 5RF E11.43 - Type 2 diabetes mellitus with diabetic autonomic (poly)neuropathy Patient Instructions: - Continue taking acetamide as prescribed. - Follow the adjusted rosuvastatin dosage of 5 mg daily. - Monitor for any side effects from medication changes and report immediately. - Maintain a balanced diet and regular exercise routine. - Attend the follow-up appointment for liver function tests as scheduled.
[2024-08-06 15:24] VITALS: BP 126/70; BMI 26.3
== END 2024-08-06 15:49 | disposition home or self-care (01) ==
PROVIDERS: PCP Internal Medicine; Visit Provider Internal Medicine
DX: E11.9 Type 2 diabetes mellitus without complications (principal); F33.0 Major depressive disorder, recurrent, mild; E78.5 Hyperlipidemia, unspecified; K21.9 Gastro-esophageal reflux disease without esophagitis; K59.04 Chronic idiopathic constipation; K31.84 Gastroparesis

== ENCOUNTER → 2024-08-06 15:10 | Outpatient (BNVA) | payer MEDICARE, SELFPAY | PROVIDERS: PCP Internal Medicine; Visit Provider Internal Medicine | DX: E78.5 Hyperlipidemia, unspecified (principal); F33.0 Major depressive disorder, recurrent, mild; K21.9 Gastro-esophageal reflux disease without esophagitis; K59.04 Chronic idiopathic constipation; E11.43 Type 2 diabetes mellitus with diabetic autonomic (poly)neuropathy; K31.84 Gastroparesis | CPT/HCPCS: 83036; 96127; 99212 ==

== ENCOUNTER 2024-08-20 09:56 | Outpatient (REF) | payer MEDICARE, SELFPAY | END 2024-08-20 09:57 | disposition home or self-care (01) | LOC: HO.MAMMO 09:56 | PROVIDERS: PCP Internal Medicine; Visit Provider Internal Medicine | DX: Z12.31 Encounter for screening mammogram for malignant neoplasm of breast (principal) | CPT/HCPCS: 77063; 77067 ==

== ENCOUNTER → 2024-08-20 10:30 | Outpatient (BNV) | payer MEDICARE, SELFPAY | PROVIDERS: PCP Internal Medicine; Visit Provider Internal Medicine | DX: Z12.31 Encounter for screening mammogram for malignant neoplasm of breast (principal) | CPT/HCPCS: 77063; 77067 ==

== ENCOUNTER 2024-12-10 10:16 | Outpatient (AMB) | payer MEDICARE, SELFPAY ==
--- NOTE | 2024-12-10 10:18 | A.OFFVIS_ITS ---
Vital Signs 12/10/24 10:22 Height 5 ft 6 in Weight 173 lb 4.533 oz BMI 28.0 BP 136/59 L Blood Pressure Location Lt brachial Position Sitting Pulse 79 Pulse Source Pulse Oximeter Pulse Oximetry (%) 95 Oxygen Delivery Method Room Air Intake Visit Reasons: 1 year follow up Intake Note: Pt presents to the office today for a 1 year follow up. Pt states she is overall feeling well and denies any N/V/D. Safety Engineer Pressure Vessels Required: Yes Safety Engineer Pressure Vessels Language: Bur[place]ian Allergies atorvastatin Allergy (Intermediate, Verified 12/10/24 10:18) elevated liver enzymes cortisone [CORTISONE] Allergy (Intermediate, Verified 12/10/24 10:18) SWELLING Penicillins [PENICILLINS] Allergy (Mild, Verified 12/10/24 10:18) RASH Medication List - Last Reconciled 12/10/24 by LUDWIG Beebe aripiprazole 5 mg PO DAILY blood sugar diagnostic (LogoGardenTouch Ultra Test strips) Use 1 test strip once a day blood-glucose meter (LogoGardenTouch Ultra2 Meter) As directed bupropion HCl XL 300 mg PO BEDTIME buspirone 10 mg PO DAILY cholecalciferol (vitamin D3) 25 mcg PO DAILY 90 days clonidine HCl 0.2 mg PO BEDTIME clonidine HCl 0.1 mg PO BID empagliflozin (Jardiance) 10 mg PO DAILY 90 days ezetimibe 10 mg PO DAILY 90 days flash glucose sensor (FreeStyle Tre 14 Day Sensor kit) As directed fluoxetine 60 mg PO QAM gabapentin 600 mg PO TID 30 days lancets (LogoGardenTouch UltraSoft 2 Lancet) Use 1 lancet twice a day linaclotide (Linzess) 290 mcg PO DAILY omeprazole 40 mg PO BID rosuvastatin 5 mg PO DAILY 90 days trazodone 100 mg PO BEDTIME HPI HPI 1 year follow up: Details: Assessment & Plan (1) Tubular adenoma of colon: Comment: 2022 scope= TA repeat in 5 years; 2016n scope repeat 5 years A. GASTRIC ANTRAL-TYPE AND FUNDIC-TYPE MUCOSA WITH NO DIAGNOSTIC ABNORMALITY. AN IMMUNOSTAIN FOR HELICOBACTER PYLORI IS NEGATIVE FOR ORGANISMS. B. TUBULAR ADENOMA. C. TUBULAR ADENOMA. Code(s): D12.6 - Benign neoplasm of colon, unspecified Category: Medical (2) Chronic idiopathic constipation: Code(s): K59.04 - Chronic idiopathic constipation Category: Medical (3) GERD (gastroesophageal reflux disease): Code(s): K21.9 - Gastro-esophageal reflux disease without esophagitis Category: Medical Qualifiers: Esophagitis presence: esophagitis presence not specified Qualified Code(s): K21.9 - Gastro-esophageal reflux disease without esophagitis (4) Gastroparesis: Code(s): K31.84 - Gastroparesis Category: Medical Plan [place] #[employer] Live She is agreeable to the 2 year repeat. The procedure was well tolerated. The results were explained and the patient is agreeable to the follow-up interval as stated. The bowel pattern has returned to normal. Education was provided to tell any 1st degree relatives about their findings to be sure that they are screened by age 45. Educated that they will be put on a recall list when it is time for their repeat scope but should they move out of state or away from the hospital they will need to remember along with their primary to repeat the procedure in a timely fashion to avoid any adverse complications. Continues to do well on her medications. She continues on her Colace 100 mg twice a day, Linzess 290 micro g daily, metoclopramide 5 mg 4 times a day, omeprazole 40 mg twice a day and senna 2 tablets at bedtime as needed. ROV 6 mos. Medications: Refilled linaclotide 290 mcg PO DAILY 30 caps 6RF 30 days K59.04 - Chronic idiopathic constipation docusate sodium 100 mg PO BID PRN 60 caps 8RF for constipation metoclopramide HCl 5 mg PO QID 120 tabs 6RF K31.84 - Gastroparesis omeprazole 40 mg PO BID 60 caps 6RF K21.9 - Gastro-esophageal reflux disease without esophagitis sennosides (senna) 17.2 mg (2 x 8.6 mg) PO BEDTIME PRN 60 tabs 6RF for constipat ion TODAYS VISIT [place] #[id number] She continues on her Colace 100 mg twice a day, Linzess 290 micro g daily, metoclopramide 5 mg 4 times a day, omeprazole 40 mg twice a day and senna 2 tablets at bedtime as needed. She would like to stop the senna and the colace because she finds that the OneFolds 290 works well w/o them. This is acceptable. It seems her bowels changed because she was put on Jardience for her diabetes and her metformin was stopped. Return office visit in 6 months [facility] Medical History Type 2 diabetes mellitus with diabetic autonomic (poly)neuropathy Hypovitaminosis D Mild recurrent major depression Polyarthralgia Left knee pain Dyslipidemia Surgical History H/O arthroscopy of left knee History of left knee surgery History of total right knee replacement H/O prior ablation treatment History of partial hysterectomy History of tubal ligation Hx of arthroplasty Hx of cardiac cath History of carpal tunnel release Hx of shoulder surgery Hx of section History of bladder surgery Hx of colonoscopy History of esophagogastroduodenoscopy (EGD) Family History Father CVD (cardiovascular disease) Mother Diabetes Hypertension Son No problems noted. Daughter No problems noted. Daughter No problems noted. Family/Other Mental health disorder Social History Housing: Apartment Alcohol intake: never Patient Tobacco Use Status: Never used Tobacco e-Cigarette/Vaping Use: Never Used Second Hand Smoke Exposure: No service: No Current occupational status: unemployed Cognitive needs: No Hearing needs: No Vision needs: No Review of Systems Const Denies fatigue, Denies fever(s), Denies night sweats, Denies poor appetite and Denies weight loss ENT Reports Normal hearing present, Denies dental pain, Denies dysphagia, Denies hearing loss, Denies mouth pain, Denies odynophagia, Denies throat swelling, Denies tongue swelling and Reports other (Dentition adequate) Card Reports no additional complaints Resp Reports no additional complaints GI Details: Denies abdominal pain, Denies melena, Denies bloating, Denies hematochezia, Reports constipation, Denies GI cramping, Denies dysphagia, Denies excessive flatus, Denies early satiety, Reports heartburn, Denies diarrhea, Denies nausea, Denies odynophagia, Denies vomiting and Denies hematemesis Musc Reports abnormal gait and Reports myalgias Skin/Breast Denies pruritus, Denies lesions, Denies rash and Denies jaundice Neuro Reports Normal hearing present, Denies Abnormal speech present and Reports abnormal gait Endo Denies fatigue Aller/Immun Denies throat swelling and Denies tongue swelling Physical Exam Vital Signs: Last Vital Signs Pulse 79 12/10/24 10:22 BP 136/59 L 12/10/24 10:22 Pulse Ox 95 12/10/24 10:22 Oxygen Delivery Method Room Air 12/10/24 10:22 BMI result Body Mass Index 28.0 Const General: cooperative, no acute distress, well developed and well groomed Nutritional Appearance: average body habitus and well nourished Orientation/consciousness: oriented to person, oriented to place and oriented to time Limitations: language barrier, ambulation with cane and other limitations HEENT Head: Yes normocephalic and Yes atraumatic Eyes General: appearance normal, both eyes and all related structures Pupils: Equal, round and reactive pupils present Neck Neck: Yes normal visual inspection and Yes no lymphadenopathy Thyroid: Thyroid normal Resp Effort & Inspection: normal respiratory effort and able to speak in complete sentences Auscultation: clear to auscultation bilaterally Cardio Rate: regular rate Rhythm: regular rhythm Heart sounds: Normal, physiologic split S2 sound present Peripheral pulses: radial pulses present and posterior tibial pulses present GI Inspection: No distended and No Abdominal panniculus present Palpation (GI): Soft to palpation, nontender, no guarding, not rigid and No hepatosplenomegaly present Percussion: Yes normal to percussion Auscultation: normal bowel sounds Rectal Exam - Female: deferred Skin General skin exam: no rashes or lesions noted, turgor normal, skin not dry, no jaundice, No spider nevi and no striae Rashes: no rashes Nails: normal Neuro General: oriented to person, oriented to place and oriented to time Cranial nerves: Yes Equal, round and reactive pupils present and Yes Normal hearing present Speech: No Abnormal speech present Extrem General: Yes normal to inspection, No clubbing, No cyanosis and No edema Psych Appearance: grossly normal and well kempt Mental Status: mental status grossly normal Speech and movement: Slowed speech present (Psych) Affect: normal affect Attitude: cooperative Thought process: not confabulating and Impoverished thought process present Thought content: Normal thought content present Insight: Limited insight present (Psych) Judgement: Limited judgement present (Psych) Assessment & Plan Assessment & Plan (1) Chronic idiopathic constipation: Code(s): K59.04 - Chronic idiopathic constipation Category: Medical (2) GERD (gastroesophageal reflux disease): Code(s): K21.9 - Gastro-esophageal reflux disease without esophagitis Category: Medical Qualifiers: Esophagitis presence: esophagitis presence not specified Qualified Code(s): K21.9 - Gastro-esophageal reflux disease without esophagitis (3) Bleeding hemorrhoids: Code(s): K64.9 - Unspecified hemorrhoids Category: Medical Plan [place] #[id number] She continues on her Colace 100 mg twice a day, Linzess 290 micro g daily, metoclopramide 5 mg 4 times a day, omeprazole 40 mg twice a day and senna 2 tablets at bedtime as needed. She would like to stop the senna and the colace because she finds that the LInzess 290 works well w/o them. This is acceptable. It seems her bowels changed because she was put on Jardience for her diabetes and her metformin was stopped. Return office visit in 6 months Medications: Refilled omeprazole 40 mg PO BID 60 caps 6RF K21.9 - Gastro-esophageal reflux disease without esophagitis linaclotide (Linzess) 290 mcg PO DAILY 30 caps 6RF K59.04 - Chronic idiopathic constipation Discontinued blood-glucose meter (LogoGardenTouch Ultra2 Meter) Discontinued Reason: Patient no longer taking As directed 1 ea 0RF E11.9 - Type 2 diabetes mellitus without complications docusate sodium Discontinued Reason: Doctor's Order 100 mg PO BID PRN 60 caps 8RF for constipation metformin ER Discontinued Reason: Patient no longer taking 750 mg PO BID 90 days 180 tabs 1RF metoclopramide HCl Discontinued Reason: Patient no longer taking 5 mg PO QID 120 tabs 6RF K31.84 - Gastroparesis sennosides (senna) Discontinued Reason: Patient no longer taking 17.2 mg (2 x 8.6 mg) PO BEDTIME PRN 60 tabs 6RF for constipation Coding Level of Care Code Est Pt Level 3 (35553) Diagnoses Chronic idiopathic constipation K59.04 Gastroesophageal reflux disease, unspecified whether esophagitis present K21.9 Esophagitis presence: esophagitis presence not specified Bleeding hemorrhoids K64.9
[2024-12-10 10:22] VITALS: BP 136/59; PULSE 79; O2SAT 95; BMI 28.0
== END 2024-12-10 10:43 | disposition home or self-care (01) ==
LOC: HO.HGI 10:17
PROVIDERS: PCP Internal Medicine; Visit Provider Nurse Practitioner
DX: K59.04 Chronic idiopathic constipation (principal); K21.9 Gastro-esophageal reflux disease without esophagitis; K64.9 Unspecified hemorrhoids
CPT/HCPCS: 99213

== ENCOUNTER → 2024-12-10 10:16 | Outpatient (BNVA) | payer MEDICARE, SELFPAY | PROVIDERS: PCP Internal Medicine; Visit Provider Nurse Practitioner | DX: K59.04 Chronic idiopathic constipation (principal); K21.9 Gastro-esophageal reflux disease without esophagitis; K64.9 Unspecified hemorrhoids; K31.84 Gastroparesis; E11.9 Type 2 diabetes mellitus without complications | CPT/HCPCS: 99212 ==

== ENCOUNTER 2024-12-31 08:03 | Outpatient (REF) | payer MEDICARE, SELFPAY ==
[2024-12-31 09:52] LABS: Alanine Aminotransferase 104 U/L (0-31); Albumin Level 4.2 g/dL (3.5-5.0); Alkaline Phosphatase 115 U/L (39-117); Anion Gap 9 (12-20); Aspartate Amino Transferase 86 U/L (5-31); Bilirubin Total 0.3 mg/dL (0.0-1.0); Blood Urea Nitrogen 13 mg/dL (9-16); Calcium 9.4 mg/dL (8.4-10.2); Carbon Dioxide 32 mmol/L (22-29); Chloride 106 mmol/L (96-108); Cholesterol 151 mg/dL (<200); Estimated Glomerular Filt Rate > 60; Glucose Fasting 105 mg/dL (60-99); HDL Cholesterol 68 mg/dL (>40); LDL Cholesterol Calculated 69 mg/dL (<100); Sodium 143 mmol/L (135-145); Total Protein 7.2 g/dL (6.5-8.0); Triglycerides 71 mg/dL (<150)
[2024-12-31 10:12] LABS: Vitamin D 25-OH Total 40.3 ng/mL (>30)
[2024-12-31 10:40] LABS: Creatinine Urine 55.93 mg/dL; Microalbumin Urine < 5.0 mg/L
== END 2024-12-31 08:04 | disposition home or self-care (01) ==
LOC: HO.LAB 08:03
PROVIDERS: PCP Internal Medicine; Visit Provider Internal Medicine
DX: E78.5 Hyperlipidemia, unspecified (principal); E11.9 Type 2 diabetes mellitus without complications; E55.9 Vitamin D deficiency, unspecified
CPT/HCPCS: 36415; 80053; 80061; 82043; 82306; 82570

== ENCOUNTER 2025-01-07 10:30 | Outpatient (AMB) | payer MEDICARE, SELFPAY ==
[2025-01-07 10:39] VITALS: BP 136/86; BMI 28.6
--- NOTE | 2025-01-07 10:39 | A.OFFPC_ITS ---
Vital Signs 01/07/25 10:39 Height 5 ft 6 in Weight 177 lb BMI 28.6 BP 136/86 Blood Pressure Location Lt brachial Position Sitting Intake Visit Reasons: dm Intake Note: Patient here for a follow up DM Switchman Required: No Accompanied by: Spouse Allergies atorvastatin Allergy (Intermediate, Verified 01/07/25 10:54) elevated liver enzymes cortisone (CORTISONE) Allergy (Intermediate, Verified 01/07/25 10:54) SWELLING Penicillins (PENICILLINS) Allergy (Mild, Verified 01/07/25 10:54) RASH Medication List - Last Reconciled 01/07/25 by Gwendolyn Lind MD aripiprazole 5 mg PO DAILY blood sugar diagnostic ([employer] Ultra Test strips) Use 1 test strip once a day blood-glucose meter ([employer] Ultra2 Meter) As directed bupropion HCl XL 300 mg PO BEDTIME buspirone 10 mg PO DAILY cholecalciferol (vitamin D3) 25 mcg PO DAILY 90 days clonidine HCl 0.2 mg PO BEDTIME clonidine HCl 0.1 mg PO BID empagliflozin (Jardiance) 10 mg PO DAILY 90 days ezetimibe 10 mg PO DAILY 90 days flash glucose sensor (FreeStyle Tre 14 Day Sensor kit) As directed fluoxetine 60 mg PO QAM gabapentin 600 mg PO TID 30 days lancets ([employer] MedicalTouch UltraSoft 2 Lancet) Use 1 lancet twice a day linaclotide (Linzess) 290 mcg PO DAILY omeprazole 40 mg PO BID rosuvastatin 5 mg PO DAILY 90 days trazodone 100 mg PO BEDTIME Tobacco use date assessed: 08/06/24 Fall risk assessment: No Falls in past year Last assessed Fall Risk: 01/07/25 Dental Screening Dental Screen Date: 01/07/25 Did you have a dental visit in the last 12 months?: Yes Did you have a dental problem in the last 6 months where you did not have access to dental care?: No Was dental information given to patient?: Patient has dentist HPI HPI Comments History of Present Illness Details This is a 69-year-old female with diabetes mellitus type 2, hypertension, dyslipidemia, and mild recurrent major depression that complains of vertigo that is still happening with loss of balance and I will refer her to vestibular therapy. She also complains of bilateral hand tremors that can happen at rest or during movement. This started about a month ago. Her A1c is within goal. Blood pressure stable and within goal. LDL within goal. She has transaminitis that is 3 times the upper limit of normal and this is why I will hold rosuvastatin. I will order ultrasound of the abdomen and labs related to transaminitis. She denies jaundice. Complains of some insomnia and depression with insomnia are follow by Psychiatry which recently increase trazodone due to this matter. Depression stable with bupropion. [facility], [facility] Medical History (Updated 01/07/25 @ 11:59 by Gwendolyn Lind MD) Type 2 diabetes mellitus with diabetic autonomic (poly)neuropathy Hypovitaminosis D Mild recurrent major depression Polyarthralgia Left knee pain Dyslipidemia Surgical History H/O arthroscopy of left knee History of left knee surgery History of total right knee replacement H/O prior ablation treatment History of partial hysterectomy History of tubal ligation Hx of arthroplasty Hx of cardiac cath History of carpal tunnel release Hx of shoulder surgery Hx of section History of bladder surgery Hx of colonoscopy History of esophagogastroduodenoscopy (EGD) Family History Father CVD (cardiovascular disease) Mother Diabetes Hypertension Son No problems noted. Daughter No problems noted. Daughter No problems noted. Family/Other Mental health disorder Social History Housing: Apartment Alcohol intake: never Patient Tobacco Use Status: Never used Tobacco e-Cigarette/Vaping Use: Never Used Second Hand Smoke Exposure: No service: No Current occupational status: unemployed Cognitive needs: No Hearing needs: No Vision needs: No Questionnaire PHQ-9 Over the last 2 weeks, how often have you been bothered by any of the following problems? 1. Little interest or pleasure in doing things: several days 2. Feeling down, depressed, or hopeless: several days 3. Trouble falling or staying asleep, or sleeping too much: nearly every day 4. Feeling tired or having little energy: several days 5. Poor appetite or overeating: not at all 6. Feeling bad about yourself - or that you are a failure or have let yourself or your family down: not at all 7. Trouble concentrating on things, such as reading the newspaper or watching television: several days 8. Moving or speaking so slowly that other people could have noticed. Or the opposite - being so fidgety or restless that you have been moving around a lot more than usual: nearly every day 9. Thoughts that you would be better off or of hurting yourself in some way: not at all Total score: 10 Depression Screening Interpretation: Positive Depression Screening Follow-up: Existing condition, In treatment, Community Mental Health Worker F/U and Follow- up Visit Requested Depression Screening Done: Yes 09585 - PHQ-9 Billing: Yes Source: Developed by Drs. Prosper North, Mickie Almonte, Cb Melara and colleagues, with an educational john from [employer]. Thrive Questionnaire Date Thrive assessed: 01/07/25 I am a: Patient What is your living situation today?: I have a steady place to live Within the past 12 months, did the food you bought not last and you didn't have the money to get more?: Often true Within the past 12 months, did you worry whether your food would run out before you got money to buy more?: I choose not to answer this question Do you have trouble paying for medicines?: I choose not to answer this question Do you have trouble getting transportation to medical appointments?: I choose not to answer this question Do you have trouble paying your heating and electricity bill?: I choose not to answer this question Do you have trouble taking care of your child, family member or friend?: No Do you have trouble with day-to-day activities such as bathing, preparing meals, shopping, managing finances, etc.?: Yes Are you currently unemployed and looking for a job?: No Are you interested in more education?: No Please select the resources that you would like help with: None Currently or been in a relationship where the following occur: I choose not to answer THRIVE Score: 1 AUDIT C Alcohol Use Questionnaire (AUDIT-C) 1. How often do you have a drink containing alcohol?: Never Total Score: 0 Score Reviewed/Action Taken: No TEO-7 AMB Questionnaire TEO-7 Date TEO - 7 assessed: 01/07/25 Feeling nervous, anxious, or on edge: 3 = Nearly every day Not being able to stop or control worryin = Nearly every day Worrying too much about different things: 3 = Nearly every day Trouble relaxin = Nearly every day Being so restless that it is hard to sit still: 1 = Several days Becoming easily annoyed or irritable: 1 = Several days Feeling afraid as if something awful might happen: 0 = Not at all Total TEO-7 score (0-4 normal; 5-9 mild; 10-14 moderate; 15-21 severe): 14 Source: Developed by Drs. Prosper North, Mickie Almonte, Cb Melara and colleagues, with an educational john from [employer]. TEO-7 Assessment Billing TEO-7 Assessment Tool: TEO-7 Assessment 54198 Review of Systems Const All systems reviewed & are unremarkable except as noted in HPI and below ENT Reports disequilibrium Card Denies chest pain at rest, Denies chest pain with activity, Denies edema, Denies irregular heart rhythm, Denies claudication, Denies dyspnea, Denies dyspnea on exertion, Denies orthopnea, Denies paroxysmal nocturnal dyspnea and Denies slow heart rate Resp Denies cough, Denies dyspnea and Denies dyspnea on exertion Neuro Reports tremor(s) and Reports disequilibrium Psych Reports abnormal sleep pattern Physical exam (Primary Care) Vital Signs: Last Vital Signs BP 136/86 01/07/25 10:39 BMI result Body Mass Index 28.6 Tobacco/Smoking Status: Tobacco use Status Tobacco use date assessed 08/06/24 01/07/25 10:46 Patient Tobacco Use Status Never used Tobacco 01/07/25 10:46 e-Cigarette/Vaping Use Never Used 01/07/25 10:46 PHQ-9: PHQ-9 Score PHQ-9: Total score 10 01/07/25 10:57 Depression Screening Interpretation: Positive Depression Screening Follow-up: Existing condition, In treatment, Community Mental Health Worker F/U and Follow- up Visit Requested Thrive Assessment: Date of Thrive Assessment Date Thrive assessed 01/07/25 01/07/25 10:46 Currently or been in a relationship where the following occur: I choose not to answer Resp Effort & Inspection: normal respiratory effort Auscultation: clear to auscultation bilaterally Cardio Jugular venous distension: no JVD Rate: regular rate Rhythm: regular rhythm Heart sounds: S1 normal heart sound present and S2 normal heart sound present Neuro General: no focal motor deficits Extrem General: Yes full ROM Results AMB Hemoglobin A1c AMB Hemoglobin A1c 6.5 % Last Edit by MOSES Lau on 01/07/25 10:5 3 Results Reviewed Results Reviewed: Laboratory Last Values Hgb A1c (Clinic) 6.5 % (4.0-6.0) H 01/07/25 10:38 Coding Level of Care Code Est Pt Level 4 (25853) Complex EM visit Add On G2211 Diagnoses Transaminitis R74.01 Mild recurrent major depression F33.0 Dyslipidemia E78.5 Type 2 diabetes mellitus without complication, without long-term current use of insulin E11.9 Diabetes mellitus type: type 2 Diabetes mellitus mcfp insulin use: without mcfp use Diabetes mellitus complication status: without complication Hypovitaminosis D E55.9 Vertigo R42 Tremor of both hands R25.1 Additional Codes TEO-7 Assessment Billing - TEO-7 Assessment Tool: TEO-7 Assessment 25062 ([id number]) PHQ-9 - 61909 - PHQ-9 Billing: Yes ([id number]) Time Spent (min) 24 Assessment & Plan Assessment & Plan (1) Transaminitis: Code(s): R74.01 - Elevation of levels of liver transaminase levels Category: Medical (2) Mild recurrent major depression: Code(s): F33.0 - Major depressive disorder, recurrent, mild Category: Medical (3) Dyslipidemia: Code(s): E78.5 - Hyperlipidemia, unspecified Category: Medical (4) Diabetes mellitus: Code(s): E11.9 - Type 2 diabetes mellitus without complications Category: Medical Qualifiers: Diabetes mellitus type: type 2 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 I suggest to continue current meds except statins which were on hold due to transaminitis. A1c goal is equal or less than 7%. Blood pressure goal is equal or less than 130/80. LDL goal is less than 70. For her mild major depression follow-up with psychiatry. I order vestibular therapy for her vertigo. Refer her to Podiatry for her diabetes. Refer her to Neurology due to hand tremors. Orders: Orders AMB Hemoglobin A1c Today E11.9 - Type 2 diabetes mellitus without complications US abdomen lagos w elastography Today R74.01 - Elevation of levels of liver transaminase levels Hepatitis A,B,C Profile Today R74.01 - Elevation of levels of liver transaminase levels Mitochondrial Antibody Today R74.01 - Elevation of levels of liver transaminase levels PT Evaluation and Treatment Today R42 - Dizziness and giddiness Microalbumin, Random (w Creat) 2 Months R80.9 - Proteinuria, unspecified Comprehensive [place]. Panel Fast 2 Months E11.9 - Type 2 diabetes mellitus without complications XR chest 2V Today R05.9 - Cough, unspecified Gamma Glutamyl Transpeptidase Today R74.01 - Elevation of levels of liver transaminase levels Lipid Panel 2 Months E78.5 - Hyperlipidemia, unspecified Vitamin D 25-OH Total 2 Months E55.9 - Vitamin D deficiency, unspecified Referrals Neurology Referral R25.1 - Tremor, unspecified Podiatry Referral E11.9 - Type 2 diabetes mellitus without complications Medications: On Hold rosuvastatin Hold Comment: Doctor's Order 5 mg PO DAILY 90 days 90 tabs 1RF
== END 2025-01-07 11:05 | disposition home or self-care (01) ==
LOC: HO.HMCH 10:31
PROVIDERS: PCP Internal Medicine; Visit Provider Internal Medicine
DX: R74.01 Elevation of levels of liver transaminase levels (principal); F33.0 Major depressive disorder, recurrent, mild; E78.5 Hyperlipidemia, unspecified; E11.9 Type 2 diabetes mellitus without complications; E55.9 Vitamin D deficiency, unspecified; R42 Dizziness and giddiness; R25.1 Tremor, unspecified

== ENCOUNTER → 2025-01-07 10:30 | Outpatient (BNVA) | payer MEDICARE, SELFPAY | PROVIDERS: PCP Internal Medicine; Visit Provider Internal Medicine | DX: E11.9 Type 2 diabetes mellitus without complications (principal); I10 Essential (primary) hypertension; E78.5 Hyperlipidemia, unspecified; R42 Dizziness and giddiness; G47.00 Insomnia, unspecified; R74.01 Elevation of levels of liver transaminase levels; F33.0 Major depressive disorder, recurrent, mild; E55.9 Vitamin D deficiency, unspecified; R25.1 Tremor, unspecified; Z79.899 Other long term (current) drug therapy | CPT/HCPCS: 83036; 96127; 99212 ==

== ENCOUNTER 2025-01-21 10:45 | Outpatient (REF) | payer MEDICARE, SELFPAY ==
--- NOTE | ~2025-01-21 | XR_ITS ---
EXAMINATION: XR SHOULDER, LEFT CLINICAL INFORMATION: M25.512 - Pain in left shoulder COMPARISON: July 28, 2016 TECHNIQUE: AP external rotation, Grashey, scapular Y, and axillary views of the left shoulder. FINDINGS: There is narrowing of the AC joint and small osteophytes. Between the glenoid and subacromial cortex is 70 degrees which is lower limits of normal. Small marginal osteophyte is present along the medial humeral head. There is no dislocation. XR/XR shoulder LT min 2V IMPRESSION: AC joint arthropathy and mild degenerative change in left shoulder joint. Borderline laterally downsloping acromion. Electronically signed by: Chacho Sparrow MD 01/21/2025 03:28 PM EDT
--- NOTE | ~2025-01-21 | XR_ITS ---
EXAMINATION: XR CHEST CLINICAL INFORMATION: R05.9 - Cough, unspecified COMPARISON: November 14, 2017. TECHNIQUE: 2 views of the chest were obtained. FINDINGS: Pulmonary reticular pattern. No consolidation, pleural effusion or pneumothorax. Cardiomediastinal silhouette size is normal. Multilevel thoracolumbar spondylosis. XR/XR chest 2V IMPRESSION: Consider chronic interstitial lung disease. No acute airspace disease. . Electronically signed by: Barry Galvez MD 01/22/2025 11:57 AM EDT
--- OUTSIDE RECORDS SUMMARY | 2025-01-21 11:26 | XMS_ITS | Clinical Summary ---
Author Organization 175 [facility] Address [address] [place] [address] Phone Care Team Providers Care Fixture Repairer Fabricator Name Role Phone Gwendolyn Lind MD Primary Care Provider [phone] Social History Tobacco Use Types Packs/Day Years Used Date Smoking Tobacco: Never Assessed Comments Unknown Sex and Gender Information Value Date Recorded Sex Assigned at Not on file Legal Sex Female 4:31 AM EST Gender Identity Not on file Sexual Orientation Not on file Plan of Treatment Upcoming Encounters Date Type Department Care Team (Late st Contact Info) Description 04/01/2025 10:45 AM EDT Office Visit Orthopedic Surgery - [place] [phone] [phone] Saran Renee DPM [address] [address] Health Maintenance Due Date Last Done Comments Breast Cancer Screening 1955 Diabetes: Annual GFR (Glomer ular Filtration Rate) 1957 Diabetes: Annual Foot Exam 12/16/1967 Diabetes: Annual Retina Eye Exam 12/16/1967 DTaP,Tdap,and Td Vaccines (1 - Tdap) 1976 Pneumococcal Vaccine: 50+ Ye ars (1 of 2 - PCV) 1976 Zoster Vaccines (1 of 2) 12/16/2007 COVID-19 Vaccine (2023-2 5 season) 2024 Cholesterol Screening (Lipid Panel) 01/08/2025 Colorectal Cancer Screening: Colonoscopy 01/08/2025 Depression Screening 01/08/2025 Diabetes: Annual Urine Albumin-Creatinine Ratio (uACR) 01/08/2025 Diabetes: Blood Sugar Contro l Test (HGBA1C) 01/08/2025 Falls Risk Assessment 01/08/2025 Hepatitis C Screening 01/08/2025 Medicare Annual Wellness Visit 01/08/2025 Osteoporosis Screening (Bone Density Screening) 01/08/2025 Social Influencers of Health Screening 01/08/2025 Influenza Vaccine (Season Ended) 2025 RSV Immunization Adult Patie nts (1 - 1-dose 75+ series) 2032 HIB Vaccines Aged Out No longer eligi ble based on patient's age to complete this topic HPV Vaccines Aged Out No longer eligi ble based on patient's age to complete this topic Hepatitis A Vaccines Aged Out No long er eligible based on patient's age to complete this topic Hepatitis B Vaccines Aged Out No long er eligible based on patient's age to complete this topic IPV Vaccines Aged Out No longer eligi ble based on patient's age to complete this topic MMR Vaccines Aged Out No longer eligi ble based on patient's age to complete this topic Meningococcal ACWY Vaccine Aged Out N o longer eligible based on patient's age to complete this topic Meningococcal B Vaccine Aged Out No l onger eligible based on patient's age to complete this topic RSV Immunization Patients Un shirin 20 months Aged Out No longer eligible b ased on patient's age to complete this topic Varicella Vaccines Aged Out No longer eligible based on patient's age to complete this topic Insurance [place] - [place] MEDIC[place]VANTAGE Care Teams Fixture Repairer Fabricator Relationship Specialty Start Date End Date Gwendolyn Lind [facility] [address] Physician Associ D[facility]B/A: [facility] DENNISE Rios PCP - General Internal Medicine 01/08/25
[2025-01-21 12:47] LABS: Gamma Glutamyl Transpeptidase 71 U/L (7-33)
[2025-01-21 13:16] LABS: HBS Num1 0.93 mIU/mL (0-7.99); HBc Num1 0.12 S/CO (0.00-0.79); HBsAGNum1 0.39 S/CO (0.00-0.99); Hepatitis A Antibody IgM 0.17 Index (0-0.79); Hepatitis B Surface Antigen Negative (Negative); ~HepC Num1 0.11 S/CO (0.00-0.79); ~Hepatitis A Antibody IgM Nonreactive (Nonreactive); ~Hepatitis B Surface Antibody NONREACTIVE (Nonreactive); ~Hepatitis C Antibody Nonreactive (Nonreactive)
== END 2025-01-21 10:46 | disposition home or self-care (01) ==
LOC: HO.XRAY 10:45
PROVIDERS: PCP Internal Medicine; Visit Provider Internal Medicine
DX: M25.512 Pain in left shoulder (principal); R74.01 Elevation of levels of liver transaminase levels; R05.9 Cough, unspecified
CPT/HCPCS: 36415; 71046; 73030; 82977; 86381; 86704; 86706; 86709; 86803; 87340

== ENCOUNTER → 2025-01-21 10:49 | Outpatient (BNV) | payer MEDICARE, SELFPAY | PROVIDERS: PCP Internal Medicine; Visit Provider Radiology Diagnostic Radiology | DX: R05.9 Cough, unspecified (principal) | CPT/HCPCS: 71046 ==

== ENCOUNTER 2025-01-29 11:20 | Outpatient (AMB) | payer MEDICARE, SELFPAY ==
[2025-01-29 11:43] VITALS: BP 120/60; PULSE 80; O2SAT 94; BMI 28.7
--- NOTE | 2025-01-29 11:43 | MHC.OFFVIS ---
Vital Signs 01/29/25 11:43 Height 5 ft 6 in Weight 178 lb BMI 28.7 BP 120/60 Blood Pressure Location Rt brachial Position Sitting Pulse 80 Pulse Source Pulse Oximeter Pulse Oximetry (%) 94 Oxygen Delivery Method Room Air Intake Visit Reasons: INP-Tremors Intake Note: NPV tremors Complaint Supervisor Required: No Accompanied by: Spouse Allergies atorvastatin Allergy (Intermediate, Verified 01/29/25 11:46) elevated liver enzymes cortisone (CORTISONE) Allergy (Intermediate, Verified 01/29/25 11:46) SWELLING Penicillins (PENICILLINS) Allergy (Mild, Verified 01/29/25 11:46) RASH Medication List - Last Reconciled 01/29/25 by Ina Butler MD aripiprazole 5 mg PO DAILY blood sugar diagnostic ([employer] Ultra Test strips) Use 1 test strip once a day blood-glucose meter ([employer] Ultra2 Meter) As directed bupropion HCl XL 300 mg PO BEDTIME buspirone 10 mg PO DAILY cholecalciferol (vitamin D3) 25 mcg PO DAILY 90 days clonidine HCl 0.2 mg PO BEDTIME clonidine HCl 0.1 mg PO BID empagliflozin (Jardiance) 10 mg PO DAILY 90 days ezetimibe 10 mg PO DAILY 90 days flash glucose sensor (FreeStyle Tre 14 Day Sensor kit) As directed fluoxetine 60 mg PO QAM gabapentin 600 mg PO TID 30 days lancets ([employer] UltraSoft 2 Lancet) Use 1 lancet twice a day linaclotide (Linzess) 290 mcg PO DAILY omeprazole 40 mg PO BID rosuvastatin 5 mg PO DAILY 90 days Held on 01/07/25. 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 she reports tremors in natasha hands for about 1year.The tremors are both at rest and posture , action, It can be intermittent and Right is worse than left. when she lifts a spoon or fork in her right hand she notices more. she notices occasional tremors in legs. she has trouble writing, dressing , applying make up, eating drinking.It is worse since she started noticing 1 kat ago. No family history of tremors. No head injury she is on aripiprazole 2.5mg qd - recently decreased.she has been on neuroleptics for more than 10 years. she also has trouble initiating sleep, snoring- HST showed mild sleep apnea - 5 years ago . [facility] Medical History (Updated 01/29/25 @ 12:09 by Ina Butler MD) Hypersomnia Snoring Type 2 diabetes mellitus with diabetic autonomic (poly)neuropathy Hypovitaminosis D Mild recurrent major depression Polyarthralgia Left knee pain Dyslipidemia Surgical History H/O arthroscopy of left knee History of left knee surgery History of total right knee replacement H/O prior ablation treatment History of partial hysterectomy History of tubal ligation Hx of arthroplasty Hx of cardiac cath History of carpal tunnel release Hx of shoulder surgery Hx of section History of bladder surgery Hx of colonoscopy History of esophagogastroduodenoscopy (EGD) Family History Father CVD (cardiovascular disease) Mother Diabetes Hypertension Son No problems noted. Daughter No problems noted. Daughter No problems noted. Family/Other Mental health disorder Social History Housing: Apartment Alcohol intake: never Patient Tobacco Use Status: Never used Tobacco e-Cigarette/Vaping Use: Never Used Second Hand Smoke Exposure: No service: No Current occupational status: unemployed Cognitive needs: No Hearing needs: No Vision needs: No Physical Exam Vital Signs: Last Vital Signs Pulse 80 01/29/25 11:43 BP 120/60 01/29/25 11:43 Pulse Ox 94 01/29/25 11:43 Oxygen Delivery Method Room Air 01/29/25 11:43 BMI result Body Mass Index 28.7 Const General: cooperative, healthy appearing and comfortable Nutritional Appearance: overweight Orientation/consciousness: patient oriented x3 Neuro Other: mild intermittent right hand rest tremors and some action tremors No cog wheel rigidty , mild bradkinesia natasha Gait - good posture , antalgic gait mallampatti grade 4 General: patient oriented x3, moves all extremities and no focal motor deficits Cranial nerves: Yes Bilaterally intact EOM present, Yes Nystagmus not present, Yes Normal facial strength present, Yes Midline tongue present and Yes Symmetric palate elevation present Cognition (Neuro): normal cognition Gait exam (Neuro): Antalgic gait present Motor exam (neuro): 5/5 motor strength present throughout and Normal motor muscle tone present throughout Deep tendon reflexes (DTR's): Right triceps reflex intensity grade: 1+, Left triceps reflex intensity grade: 1+, Rt Biceps (C5, C6): 1+, Left biceps reflex intensity grade: 1+, Right brachioradialis reflex intensity grade: 1+, Left brachioradialis reflex intensity grade: 1+, Right patellar reflex intensity grade: 1+ and Left patellar reflex intensity grade: 1+ Coordination: [id number] test normal Assessment & Plan Assessment & Plan (1) Tremor of both hands: Code(s): R25.1 - Tremor, unspecified Category: Medical (2) Snoring: Code(s): R06.83 - Snoring Category: Medical (3) Hypersomnia: Code(s): G47.10 - Hypersomnia, unspecified Category: Medical Plan Her tremors are likley related to exposure to aripiprazole. Her psychiatrist decreased her dose recently- i will follow her up clinically and if her tremors worsen will consider bemztropine. I will refer her to OT for hand strengthening exercises Home sleep test to r/o sleep apnea. Orders: Orders RT home sleep study Today G47.10 - Hypersomnia, unspecified, R06.83 - Snoring OT Evaluation and Treatment Today R25.1 - Tremor, unspecified Coding Level of Care Code New Pt Level 4 (02247) Complex EM visit Add On G2211 Diagnoses Tremor of both hands R25.1 Snoring R06.83 Hypersomnia G47.10
--- OUTSIDE RECORDS SUMMARY | 2025-01-29 12:02 | XMS_ITS | Clinical Summary ---
Author Organization 175 [facility] Address [address] [place] [address] Phone Care Team Providers Care Project Manager Retail Name Role Phone Gwendolyn Lind MD Primary Care Provider [phone] Social History Tobacco Use Types Packs/Day Years [...] AM EDT Office Visit Orthopedic Surgery - [place] [id number] [phone] Saran Renee DPM [address] [address] Health Maintenance Due Date Last Done Comments [...] Influencers of Health Screening 01/08/2025 Influenza Vaccine (#1) 2025 RSV Immunization Adult Patie nts (1 [...] - [place] Care Teams Project Manager Retail Relationship Specialty Start Date End Date [facility]wendolyn Lind MD 2 [facility] [address] Physician Associ D/B/A: [facility] DENNISE Rios PCP - General Internal Medicine 01/08/25
== END 2025-01-29 12:13 | disposition home or self-care (01) ==
LOC: HO.HSMS 11:21
PROVIDERS: PCP Internal Medicine; Visit Provider Psychiatry & Neurology Neurology
DX: R25.1 Tremor, unspecified (principal); R06.83 Snoring; G47.10 Hypersomnia, unspecified
CPT/HCPCS: 99204; G2211

== ENCOUNTER → 2025-01-29 11:20 | Outpatient (BNVA) | payer MEDICARE, SELFPAY | PROVIDERS: PCP Internal Medicine; Visit Provider Psychiatry & Neurology Neurology | DX: R06.83 Snoring (principal); G47.10 Hypersomnia, unspecified; R25.1 Tremor, unspecified | CPT/HCPCS: 99202 ==

== ENCOUNTER 2025-03-04 08:28 | Outpatient (AMB) | payer MEDICARE, SELFPAY ==
--- NOTE | 2025-03-04 08:39 | MHC.PC.OV ---
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: No Accompanied by: Self / Same As Patient Allergies atorvastatin Allergy (Intermediate, Verified 03/04/25 09:43) elevated liver enzymes cortisone (CORTISONE) Allergy (Intermediate, Verified 03/04/25 09:43) SWELLING Penicillins (PENICILLINS) Allergy (Mild, Verified 03/04/25 09:43) RASH Medication List - Last Reconciled 03/04/25 by Gwendolyn Lind MD aripiprazole 5 mg PO DAILY blood sugar diagnostic ([email or web address] Ultra Test strips) Use 1 test strip once a day blood-glucose meter ([email or web address] Ultra2 Meter) As directed bupropion HCl XL 300 mg PO BEDTIME buspirone 10 mg PO DAILY cholecalciferol (vitamin D3) 25 mcg PO DAILY 90 days clonidine HCl 0.2 mg PO BEDTIME clonidine HCl 0.1 mg PO BID empagliflozin (Jardiance) 10 mg PO DAILY 90 days ezetimibe 10 mg PO DAILY 90 days flash glucose sensor (FreeStyle Tre 14 Day Sensor kit) As directed fluoxetine 60 mg PO QAM gabapentin 600 mg PO TID 30 days lancets (enEvolvTouch UltraSoft 2 Lancet) Use 1 lancet twice a day linaclotide (Linzess) 290 mcg PO DAILY omeprazole 40 mg PO BID rosuvastatin 5 mg PO DAILY 90 days Held on 01/07/25. Instructions: Doctor's Order trazodone 100 mg PO BEDTIME Tobacco use date assessed: 03/04/25 Fall risk assessment: No Falls in past year Last assessed Fall Risk: 03/04/25 Dental Screening Dental Screen Date: 03/04/25 Did you have a dental visit in the last 12 months?: Yes Did you have a dental problem in the last 6 months where you did not have access to dental care?: No Was dental information given to patient?: Patient has dentist HPI HPI Comments History of Present Illness Details The patient is a 69-year-old female presenting for an annual physical examination and to ensure vaccinations are up to date. She has a history of Type 2 Diabetes Mellitus, with the last HbA1c recorded at 6.5% on January 07, indicating controlled blood glucose levels. Her cholesterol levels were last checked two months ago, with an LDL of 69 mg/dL, and she is on ezetimibe for cholesterol management. The patient has osteopenia, with the last bone density test conducted in 2023, and the next one scheduled for 2025. 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 A colonoscopy performed in 2023 revealed a tubular adenoma, and the next colonoscopy is due in 2028. The patient is being treated for depression and anxiety, with medications including Abilify, bupropion, and buspirone. She also takes clonidine for hypertension, with a plan to eliminate the 0.1 mg dose. She has gastroesophageal reflux disease managed with omeprazole, which she is advised to use sparingly. Neuropathy is managed with gabapentin, taken three times daily. The patient has a history of chronic interstitial lung disease, and a referral to a braker passenger train is planned for further evaluation. [facility] Medical History (Updated 03/04/25 @ 09:56 by Gwendolyn Lind MD) Hypersomnia Snoring Type 2 diabetes mellitus with diabetic autonomic (poly)neuropathy Hypovitaminosis D Mild recurrent major depression Polyarthralgia Left knee pain Dyslipidemia Surgical History H/O arthroscopy of left knee History of left knee surgery History of total right knee replacement H/O prior ablation treatment History of partial hysterectomy History of tubal ligation Hx of arthroplasty Hx of cardiac cath History of carpal tunnel release Hx of shoulder surgery Hx of section History of bladder surgery Hx of colonoscopy History of esophagogastroduodenoscopy (EGD) Family History Father CVD (cardiovascular disease) Mother Diabetes Hypertension Son No problems noted. Daughter No problems noted. Daughter No problems noted. Family/Other Mental health disorder Social History Housing: Apartment Alcohol intake: never Patient Tobacco Use Status: Never used Tobacco e-Cigarette/Vaping Use: Never Used Second Hand Smoke Exposure: No service: No Current occupational status: unemployed Cognitive needs: No Hearing needs: No Vision needs: No Questionnaire Thrive Questionnaire Date Thrive assessed: 03/04/25 I am a: Patient What is your living situation today?: I have a steady place to live Within the past 12 months, did the food you bought not last and you didn't have the money to get more?: Often true Within the past 12 months, did you worry whether your food would run out before you got money to buy more?: I choose not to answer this question Do you have trouble paying for medicines?: I choose not to answer this question Do you have trouble getting transportation to medical appointments?: I choose not to answer this question Do you have trouble paying your heating and electricity bill?: I choose not to answer this question Do you have trouble taking care of your child, family member or friend?: No Do you have trouble with day-to-day activities such as bathing, preparing meals, shopping, managing finances, etc.?: Yes Are you currently unemployed and looking for a job?: No Are you interested in more education?: No Please select the resources that you would like help with: None Currently or been in a relationship where the following occur: I choose not to answer THRIVE Score: 1 TEO-7 AMB Questionnaire TEO-7 Date TEO - 7 assessed: 03/04/25 Source: Developed by Drs. Prosper North, Mickie Almonte, Cb Melara and colleagues, with an educational john from [employer]. Review of Systems Const All systems reviewed & are unremarkable except as noted in HPI and below Card Denies chest pain at rest, Denies chest pain with activity, Denies edema, Denies irregular heart rhythm, Denies claudication, Denies dyspnea, Denies dyspnea on exertion, Denies orthopnea, Denies paroxysmal nocturnal dyspnea and Denies slow heart rate Resp Denies cough, Denies dyspnea and Denies dyspnea on exertion GI Denies abdominal pain, Denies change in bowel habits, Denies excessive flatus, Denies nausea and Denies vomiting Denies urinary incontinence, Denies urinary hesitancy and Denies urinary urgency Musc Denies abnormal gait, Denies atrophy, Denies deformity and Denies limited range of motion Skin/Breast Denies bleeding lesions, Denies changing lesions and Denies rash Neuro Denies abnormal gait and Denies lack of coordination Physical exam (Primary Care) Vital Signs: Last Vital Signs Pulse 69 03/04/25 08:41 BP 126/72 03/04/25 08:41 Pulse Ox 95 03/04/25 08:41 Oxygen Delivery Method Room Air 03/04/25 08:41 BMI result Body Mass Index 29.4 Tobacco/Smoking Status: Tobacco use Status Tobacco use date assessed 03/04/25 03/04/25 08:46 Patient Tobacco Use Status Never used Tobacco 03/04/25 08:46 e-Cigarette/Vaping Use Never Used 03/04/25 08:46 Thrive Assessment: Date of Thrive Assessment Date Thrive assessed 03/04/25 03/04/25 08:46 Currently or been in a relationship where the following occur: I choose not to answer [facility] Head: Yes normal to inspection, Yes normocephalic and Yes atraumatic Ears: external ears normal Eyes General: appearance normal, both eyes and all related structures Eyelids: Yes eyelids normal Conjunctivae: conjunctivae normal Neck Neck: Yes normal visual inspection and Yes supple Resp Effort & Inspection: normal respiratory effort Auscultation: clear to auscultation bilaterally Cardio Jugular venous distension: no JVD Rate: regular rate Rhythm: regular rhythm Heart sounds: S1 normal heart sound present and S2 normal heart sound present GI Inspection: Yes normal to inspection Palpation (GI): Soft to palpation and nontender Auscultation: normal bowel sounds Skin General skin exam: no rashes or lesions noted Neuro General: no focal motor deficits Extrem General: Yes full ROM Psych Appearance: grossly normal Coding Level of Care Code Est Pt Level 3 (11488) Est Pt Prev Care >65y(96679) Diagnoses Physical exam Z00.00 Interstitial lung disease J84.9 Type 2 diabetes mellitus without complication, without long-term current use of insulin E11.9 Diabetes mellitus type: type 2 Diabetes mellitus group home insulin use: without group home use Diabetes mellitus complication status: without complication Mild recurrent major depression F33.0 Time Spent (min) 32 Assessment & Plan Assessment & Plan (1) Physical exam: Code(s): Z00.00 - Encounter for general adult medical examination without abnormal findings Category: Medical (2) Interstitial lung disease: Code(s): J84.9 - Interstitial pulmonary disease, unspecified Category: Medical (3) Diabetes mellitus: Code(s): E11.9 - Type 2 diabetes mellitus without complications Category: Medical Qualifiers: Diabetes mellitus type: type 2 Diabetes mellitus terminal makeup operator insulin use: without terminal makeup operator use Diabetes mellitus complication status: without complication Qualified Code(s): E11.9 - Type 2 diabetes mellitus without complications (4) Mild recurrent major depression: Code(s): F33.0 - Major depressive disorder, recurrent, mild Category: Medical Plan The patient will continue with her current diabetes management plan, with a follow-up HbA1c test scheduled in six months to monitor glucose control. Her cholesterol management will continue with ezetimibe, and lipid levels will be reassessed at the next visit. For osteopenia, the patient will have a follow-up bone density test in 2025 to monitor bone health. The mild arthritis in the left shoulder will be managed conservatively, with monitoring for any progression of symptoms. The patient will undergo a colonoscopy in 2028 to monitor for any recurrence of adenomas. Her depression and anxiety will continue to be managed with her current psychiatric medications, with adjustments as needed based on her response. Gastroesophageal reflux disease will be managed with omeprazole, with advice to minimize usage to prevent dependency. Neuropathy will continue to be managed with gabapentin, with monitoring for efficacy and side effects. A referral to a braker passenger train is planned for further evaluation of chronic interstitial lung disease, with the expectation of receiving an appointment soon. Patient was informed and verbally consented to the use of an ambient scribe for clinic note documentation during this visit. Orders: Orders Microalbumin, Random (w Creat) 4 Months R80.9 - Proteinuria, unspecified Vitamin D 25-OH Total 4 Months E55.9 - Vitamin D deficiency, unspecified Lipid Panel 4 Months E78.5 - Hyperlipidemia, unspecified Comprehensive [place]. Panel Fast 4 Months E11.9 - Type 2 diabetes mellitus without complications Referrals Pulmonology Referral J84.9 - Interstitial pulmonary disease, unspecified
--- OUTSIDE RECORDS SUMMARY | 2025-03-04 08:40 | XMS_ITS | Clinical Summary ---
Author Organization 175 [facility] Address [address] [place] [address] Phone Care Team Providers Care Claims Examiner Name Role Phone Gwendolyn Lind MD Primary Care Provider [phone] Social History Tobacco Use Types Packs/Day Years [...] AM EDT Office Visit Orthopedic Surgery - [place] [id number] [phone] Saran Renee DPM [address] [address] Health Maintenance Due Date Last Done Comments Breast Cancer Screening 1955 Diabetes: Annual GFR (Glomer ular Filtration Rate) 1957 Diabetes: Annual Foot Exam 12/16/1967 Diabetes: Annual Retina Eye Exam 12/16/1967 DTaP,Tdap,and Td Vaccines (1 - Tdap) 1976 Pneumococcal Vaccine: 50+ Ye ars (1 of 2 - PCV) 1976 Zoster Vaccines (1 of 2) 12/16/2007 COVID-19 Vaccine (2023-2 5 season) 2024 Depression Screening 07/23/2024 Cholesterol Screening (Lipid Panel) 01/08/2025 Colorectal Cancer Screening: Colonoscopy 01/08/2025 Diabetes: Annual Urine Albumin-Creatinine Ratio (uACR) [...] - [place] [employer] Care Teams Claims Examiner Relationship Specialty Start Date End Date Gwendolyn Lind MD [facility], [address] Physician Associ D/B/A: [facility] DENNISE Rios PCP - General Internal Medicine 01/08/25
[2025-03-04 08:41] VITALS: BP 126/72; PULSE 69; O2SAT 95; BMI 29.4
== END 2025-03-04 09:59 | disposition home or self-care (01) ==
LOC: HO.HMCH 08:28
PROVIDERS: PCP Internal Medicine; Visit Provider Internal Medicine
DX: Z00.00 Encounter for general adult medical examination without abnormal findings (principal); J84.9 Interstitial pulmonary disease, unspecified; E11.9 Type 2 diabetes mellitus without complications; F33.0 Major depressive disorder, recurrent, mild

== ENCOUNTER → 2025-03-04 08:28 | Outpatient (BNVA) | payer MEDICARE, SELFPAY | PROVIDERS: PCP Internal Medicine; Visit Provider Internal Medicine | DX: Z00.00 Encounter for general adult medical examination without abnormal findings (principal); J84.9 Interstitial pulmonary disease, unspecified; E11.9 Type 2 diabetes mellitus without complications; F33.0 Major depressive disorder, recurrent, mild; M85.80 Other specified disorders of bone density and structure, unspecified site; K21.9 Gastro-esophageal reflux disease without esophagitis | CPT/HCPCS: 96127; 99212; 99397 ==

== ENCOUNTER 2025-03-18 09:04 | Outpatient (REF) | payer MEDICARE, SELFPAY ==
--- NOTE | ~2025-03-18 | US_ITS ---
EXAMINATION: US ABDOMEN LIMITED WITH LIVER ELASTOGRAPHY HISTORY: R74.01 - Elevation of levels of liver transaminase levels TECHNIQUE: Real-time grayscale ultrasound imaging of the right upper quadrant was performed and images were reviewed. COMPARISON: Comparison is made with the prior examination dated 09/05/2018. FINDINGS: Liver: The right lobe of the liver measures 13.5 cm in size. The left lobe of the liver measures 8.2 cm in size. The liver demonstrates increased echotexture, consistent with steatosis. No focal mass or intrahepatic biliary ductal dilatation is identified. There is normal hepatopedal flow in the portal vein. Ultrasound elastography of the liver was performed with 10 separate measurements of the liver parenchyma with the patient in the supine position. Measurements were obtained approximately 2 cm below Makenzie's capsule and perpendicular to the capsule. The median shear wave velocity is 1.72 m/s. The interquartile range/median (IQR/median) is 0.09. Gallbladder and biliary tree: The gallbladder is unremarkable, without evidence of calculi, wall thickening, or pericholecystic fluid. There is no sonographic De La Rosa sign. The common bile duct is normal in caliber measuring 4 mm. Right Kidney: The right kidney measures 10.6 cm in length. The right kidney is unremarkable, without evidence of masses, hydronephrosis, or calculi. Pancreas: The pancreas is obscured by bowel gas. Abdominal aorta and inferior vena cava: The visualized portions of the abdominal aorta and inferior vena cava are normal in caliber. There is no free fluid in the right upper quadrant. US/US abdomen lagos w elastography IMPRESSION: Hepatic steatosis. The median shear wave velocity in the liver is 1.72 m/s, corresponding to a median liver stiffness of 9.00 kPa. The IQR/median value is 0.09. This is indicative of a quality data set. Findings are indicative of a high elastography value suggestive of compensated advanced chronic liver disease. REFERENCE: Society of Radiologists in Ultrasound Liver Stiffness Thresholds (2020): LIVER STIFFNESS THRESHOLDS: *Shear wave velocity less than 1.3 m/s (Liver Stiffness equal or less than 5 kPa): High probability of being normal. *Shear wave velocity less than 1.7 m/s (Liver Stiffness less than 9 kPa): In the absence of other known clinical signs, rules out compensated advanced chronic liver disease. *Shear wave velocity between 1.7-2.1 m/s (Liver Stiffness 9-13 kPa): Suggestive of compensated advanced chronic liver disease but need further test for confirmation. *Shear wave velocity between 2.1-2.4 m/s (Liver Stiffness 13-17 kPa): Rules in compensated advanced chronic liver disease. *Shear wave velocity greater than 2.4 m/s (Liver Stiffness over 17 kPa): Suggestive of clinically significant portal hypertension. QUALITY OF DATA SET: SIGNIFICANT CHANGE FROM PRIOR EXAM: Significant change if liver stiffness measurement is 10% or greater from prior exam. OTHER CONSIDERATIONS: The stage of liver fibrosis may be overestimated in the setting of acute hepatitis, liver inflammation, elevated liver function tests, hepatic vascular congestion, obstructive cholestasis, non-fasting state, and infiltrative diseases such as amyloidosis and lymphoma. In some patients with NAFLD, the liver stiffness thresholds for compensated advanced chronic liver disease may be lower. In causes other than viral hepatitis and NAFLD, liver stiffness thresholds are not well established. Electronically signed by: Prosper Ayala MD 03/18/2025 10:14 AM EDT
--- OUTSIDE RECORDS SUMMARY | 2025-03-18 09:30 | XMS_ITS | Clinical Summary ---
Author Organization 175 [facility] Address 175 [place] [address] Phone Care Team Providers Care Machine Carton Marker Name Role Phone Gwendolyn Lind MD Primary Care Provider [phone] Social History Tobacco Use Types Packs/Day Years [...] 10:45 AM EDT Office Visit Orthopedic Surgery [facility] [address] [facility] [address] [place] [address] Saran Renee, NATI [address] [place] [phone] Health Maintenance Due Date Last Done Comments Breast Cancer Screening 1955 Diabetes: Annual GFR (Glomer ular Filtration Rate) 1957 Diabetes: Annual Foot Exam 12/16/1967 Diabetes: Annual Retina Eye Exam 12/16/1967 DTaP,Tdap,and Td Vaccines (1 - Tdap) 1976 Pneumococcal Vaccine: 50+ Ye ars (1 of 2 - PCV) 1976 Zoster Vaccines (1 of 2) 12/16/2007 COVID-19 Vaccine ( - 2023-2 5 season) 2024 Depression Screening 07/23/2024 Cholesterol [...] - [place] Care Teams Machine Carton Marker Relationship Specialty Start Date End Date Gwendolyn Lind MD 2 [facility] , [address] [facility] Physician Associ D/B/A: [facility] DENNISE Rios PCP - General Internal Medicine 01/08/25
== END 2025-03-18 09:05 | disposition home or self-care (01) ==
LOC: HO.US 09:04
PROVIDERS: PCP Internal Medicine; Visit Provider Internal Medicine
DX: R74.01 Elevation of levels of liver transaminase levels (principal)
CPT/HCPCS: 76705; 76981

== ENCOUNTER → 2025-03-18 09:06 | Outpatient (BNV) | payer MEDICARE, SELFPAY | PROVIDERS: PCP Internal Medicine; Visit Provider Radiology Diagnostic Radiology | DX: R74.01 Elevation of levels of liver transaminase levels (principal) | CPT/HCPCS: 76705 ==

== ENCOUNTER 2025-04-08 11:03 | Outpatient (RCR) | payer MEDICARE, SELFPAY ==
--- NOTE | 2025-03-19 11:13 | MHC.OT.EP ---
[facility] Office [address] [phone] F: [phone] F: [phone] Occupational Therapy Plan of Care Patient Name: Rhonda Ahn Date of Evaluation: 03/19/25 Diagnosis: Bilateral hand tremors Pain Location: No complaints of pain Assessment: Pt is a 69 y/o right hand female referred to OT with approx one year history of worsening hand tremors R>L. Pt reports the tremors can occur both at rest and with action. They are intermittent, and not noted at todays visit. She notices them more when she is using utensils to eat. No family history of tremors or diagnosis of PD. Per neurology note; her tremors are likely related to exposure to aripiprazole. Her does was recently decreased and she will be monitored accordingly. No tremors were present today at rest or with gross/fine motor activities. Gross grasp strength is decreased (45# on the R and 25# on the L). Pt would benefit from short term skilled therapy for tremor management, education and strengthening. Pt. is requesting only 1x/wk for now. Frequency and Duration: The patient will be seen 1x/wk for 4 weeks Short Term Goals: STG's=LTG's Grader Green Meat Goals: Pt will be educated on tremor reduction techniques Improve bilateral hand strength by 10# each Improve FM coordination as evidenced by 5 sec improvement on FDT bilaterally Participate in leisure painting for >20 min using R hand with noted reduction in hand tremors IND with HEP Treatment Plan: Therapeutic Exercise Therapeutic Activity Home Exercise Program Patient Education ADL Training Electronically Signed By: Penny Molina MS OTR/L Please Sign and return to therapist. Thank you once again for your referral.
--- NOTE | 2025-04-08 13:25 | MHC.OT.DC ---
[facility] Office [address] [phone] F: [phone] F: [phone] Occupational Therapy Discharge Note Patient Name: Rhonda Ahn Provider: Ina Butler Diagnosis: Bilateral hand tremors Date of Evaluation: 03/19/25 Date of Discharge: 04/08/25 Treatments to Date: 3 No Shows to Date: 1 Discharge Status: Independent with HEP Patient Elected to Stop Discharge Summary: Rhonda has attended therapy for ~3 weeks focusing on education, tremor reduction, and bilateral hand strengthening. Today she reports increased low back pain impacting function. She reports her tremors have significantly reduced, likely from decrease in one of her medications. She has been educated in exercises to improve bilateral hand strength and endurance as well as possible use of weighted utensils to ease tremors with eating. At this time, Rhonda is requesting to complete OT services based on improvement and amount of co-pay for therapy visits. Pt is IND with home program and was instructed to follow up as needed. Electronically Signed By: Penny Molina MS OTR/L Reviewed/agree with student documentation: Therapist: Please Sign and return to therapist, thank you for your referral.
== END 2025-04-08 13:27 | disposition home or self-care (01) ==
LOC: HO.OTS 11:03
PROVIDERS: Visit Provider Psychiatry & Neurology Neurology
DX: R25.1 Tremor, unspecified (principal)
CPT/HCPCS: 97110; 97165

== ENCOUNTER → 2025-04-22 09:41 | Outpatient (REF) | payer MEDICARE, MEDICAID, SELFPAY ==
--- OUTSIDE RECORDS SUMMARY | 2025-04-22 10:34 | XMS_ITS | Clinical Summary ---
Author Organization 175 [facility] Address [address] [place] [address] Phone Care Team Providers Care Inseamer Name Role Phone Gwendolyn Lind MD Primary Care Provider [phone] Allergies No known active allergies Medications No known medications Encounters Date Type Department Care Team Description 04/01/2025 10:45 AM EDT Office Visit Orthopedic [place] [address] [address] Saran Renee DPM Controlled type 2 diabetes with neuropathy (CMS/HCC V24, CMS/HCC V28) (Primary Dx); Arthritis of both feet; Hammertoes of both feet; Dermatophytosis, nail from Last 3 Months Social History Tobacco Use Types Packs/Day Years Used Date Smoking Tobacco: Never Assessed Comments Unknown Sex and Gender Information Value Date Recorded Sex Assigned at Not on file Legal Sex Female 4:31 AM EST Gender Identity Not on file Sexual Orientation Not on file Plan of Treatment Upcoming Encounters Date Type Department Care Team ([facility] st Contact Info) Description 06/03/2025 10:30 AM EST Office Visit Orthopedic [place] [address] [phone] Saran Renee DPM [address] [address] Health Maintenance Due Date Last Done Comments Breast Cancer Screening 1955 Colorectal Cancer Screening: Colonoscopy 1955 Diabetes: Annual GFR (Glomer ular Filtration Rate) 1957 Diabetes: Annual Foot Exam 12/16/1967 Diabetes: Annual Retina Eye Exam 12/16/1967 DTaP,Tdap,and Td Vaccines (1 - Tdap) 1976 Pneumococcal Vaccine: 50+ Ye ars (1 of 2 - PCV) 1976 Zoster Vaccines (1 of 2) 12/16/2007 RSV Immunization Adult Patie nts (1 - Risk 60-74 years 1-dose series) 2017 Depression Screening 07/23/2024 Cholesterol Screening (Lipid Panel) 01/08/2025 Diabetes: Annual Urine Albumin-Creatinine Ratio (uACR) 01/08/2025 Diabetes: Blood Sugar Contro l Test (HGBA1C) 01/08/2025 Falls Risk Assessment 01/08/2025 Hepatitis C Screening 01/08/2025 Medicare Annual Wellness Visit 01/08/2025 Osteoporosis Screening (Bone Density Screening) 01/08/2025 Social Influencers of Health Screening 01/08/2025 COVID-19 Vaccine ( - 2023-2 5 season) 2025 Influenza Vaccine (#1) 2025 HIB Vaccines Aged Out No longer eligi [...] - [place] Care Teams Inseamer Relationship Specialty Start Date End Date [facility]yn [facility] [address] [facility] Physician Associ D/B/A: [facility] DENNISE Rios PCP - General Internal Medicine 01/08/25
== END ==
LOC: HO.SL 09:41
PROVIDERS: PCP Internal Medicine; Visit Provider Psychiatry & Neurology Neurology
DX: J84.9 Interstitial pulmonary disease, unspecified (principal); R06.83 Snoring; G47.10 Hypersomnia, unspecified; R05.9 Cough, unspecified; Z79.899 Other long term (current) drug therapy
CPT/HCPCS: 95806; 99202

== ENCOUNTER 2025-04-22 09:54 | Outpatient (AMB) | payer MEDICARE, MEDICAID, SELFPAY ==
[2025-04-22 10:37] VITALS: BP 120/68; PULSE 65; O2SAT 97; BMI 29.5
--- NOTE | 2025-04-22 10:37 | A.OFFVIS_ITS ---
Vital Signs 04/22/25 10:37 Height 5 ft 6 in Weight 182 lb 15.739 oz BMI 29.5 BP 120/68 Blood Pressure Location Lt brachial Position Sitting Pulse 65 Pulse Source Pulse Oximeter Pulse Oximetry (%) 97 Oxygen Delivery Method Room Air Intake Visit Reasons: Interstitial Pulmonary Disease Intake Note: pt is here as a new patient, she states she is not feeling too well, she has a dry cough and some short of breath Machine Feller Required: Yes Machine Feller Services: Machine Feller Present Machine Feller Name: Estela Britt RMDelroy Extruding Department Supervisor: Extruding Department Supervisor offered & declined Allergies atorvastatin Allergy (Intermediate, Verified 04/22/25 10:41) elevated liver enzymes cortisone (CORTISONE) Allergy (Intermediate, Verified 04/22/25 10:41) SWELLING Penicillins (PENICILLINS) Allergy (Mild, Verified 04/22/25 10:41) RASH Medication List - Last Reconciled 04/22/25 by Rebecca Early MD aripiprazole 5 mg PO DAILY blood sugar diagnostic (Archetype PartnersTouch Ultra Test strips) Use 1 test strip once a day blood-glucose meter (Archetype PartnersTouch Ultra2 Meter) As directed bupropion HCl XL 300 mg PO BEDTIME buspirone 10 mg PO DAILY cholecalciferol (vitamin D3) 25 mcg PO DAILY 90 days clonidine HCl 0.2 mg PO BEDTIME clonidine HCl 0.1 mg PO BID empagliflozin (Jardiance) 10 mg PO DAILY 90 days ezetimibe 10 mg PO DAILY 90 days flash glucose sensor (FreeStyle Tre 14 Day Sensor kit) As directed fluoxetine 60 mg PO QAM gabapentin 600 mg PO TID 30 days lancets (Archetype PartnersTouch UltraSoft 2 Lancet) Use 1 lancet twice a day linaclotide (Linzess) 290 mcg PO DAILY omeprazole 40 mg PO BID rosuvastatin 5 mg PO DAILY 90 days Held on 01/07/25. Instructions: Doctor's Order trazodone 100 mg PO BEDTIME Do you need a note to return to daycare/school/sports/work: No HPI HPI Interstitial Pulmonary Disease: Details: This 69 years old Guatemalan speaking female is being seen for the 1st time because of abnormal chest x-ray reading., which indicates possible interstitial lung disease. Patient has history of nonspecific cough for the last 3 months. She denies having had any fever or chills and also cough is mostly dry. But the cough is relatively recent symptoms. She denies getting short of breath on exertion. She sleeps well and can not sleep in flat position. Denies any GERD symptoms. She does take omeprazole 40 mg b.i.d. She has history of depression , anxiety and bipolar disorder. Due to medications she tends to be tired and sleepy during the daytime. She has been nonsmoker. No history of any occupational exposures. No history of any recurrent vomiting or pulmonary aspirations No history of any medications which may cause interstitial lung disease Because of persistent cough she did have a chest x-ray on 01/21 and that was read to show increased vascular markings with reticulation. [facility] Medical History Hypersomnia Snoring Type 2 diabetes mellitus with diabetic autonomic (poly)neuropathy Hypovitaminosis D Mild recurrent major depression Polyarthralgia Left knee pain Dyslipidemia Surgical History H/O arthroscopy of left knee History of left knee surgery History of total right knee replacement H/O prior ablation treatment History of partial hysterectomy History of tubal ligation Hx of arthroplasty Hx of cardiac cath History of carpal tunnel release Hx of shoulder surgery Hx of section History of bladder surgery Hx of colonoscopy History of esophagogastroduodenoscopy (EGD) Family History Father CVD (cardiovascular disease) Mother Diabetes Hypertension Son No problems noted. Daughter No problems noted. Daughter No problems noted. Family/Other Mental health disorder Social History Housing: Apartment Alcohol intake: never Patient Tobacco Use Status: Never used Tobacco e-Cigarette/Vaping Use: Never Used Second Hand Smoke Exposure: No service: No Current occupational status: unemployed Cognitive needs: No Hearing needs: No Vision needs: No Review of Systems Const All systems reviewed & are unremarkable except as noted in HPI and below Eyes Reports no additional complaints ENT Reports no additional complaints Card Denies chest pain, Denies irregular heart rhythm and Denies leg edema Resp Reports as per HPI GI Reports heartburn (GERD symptoms controlled with omeprazole) Reports no additional complaints Musc Reports no additional complaints Skin/Breast Reports system reviewed and no additional complaints, except as documented Neuro Reports no additional complaints Psych Reports anxiety and Reports depression Endo Reports other (Diabetes mellitus) Main/Lymph Reports no additional complaints Aller/Immun Reports no additional complaints Physical Exam Vital Signs: Last Vital Signs Pulse 65 04/22/25 10:37 BP 120/68 04/22/25 10:37 Pulse Ox 97 04/22/25 10:37 Oxygen Delivery Method Room Air 04/22/25 10:37 BMI result Body Mass Index 29.5 Const General: healthy appearing (Except being moderately obese), comfortable, no acute distress, alert and awake Orientation/consciousness: patient oriented x3 HEENT Head: Yes normal to inspection General nose exam: No nasal polyps present and No nasal discharge present Face and sinus: Yes sinuses nontender Mouth: oropharynx normal Throat: Yes posterior oropharynx normal Eyes General: appearance normal, both eyes and all related structures Neck Neck: Yes normal visual inspection, Yes no lymphadenopathy, Yes trachea midline and Yes no JVD Thyroid: Thyroid normal Chest Chest palpation & inspection: normal inspection of the chest, normal palpation of entire chest wall and no tenderness Resp Effort & Inspection: normal respiratory effort Auscultation: clear to auscultation bilaterally (Breath sounds slightly diminished over the basilar areas) Cardio Palpation: normal PMI Rate: regular rate Rhythm: regular rhythm Heart sounds: no gallops and no murmurs Peripheral pulses: Peripheral pulses 2+ throughout GI Palpation (GI): Soft to palpation, nontender, No hepatosplenomegaly present and no masses Auscultation: normal bowel sounds Back/Spine/Pelvis Thoracic/Lumbar Spine: thoracic and lumbar spine normal to inspection Skin General skin exam: no rashes or lesions noted Neuro General: patient oriented x3 and no focal motor deficits Cranial nerves: Yes CN's II-XII intact bilaterally Extrem General: Yes normal to inspection, Yes no clubbing, cyanosis or edema and Yes no calf tenderness Psych Appearance: grossly normal and well kempt Speech and movement: Normal speech and movement present Results Reviewed Results Reviewed: CHEST xRAY IMPRESSION: Consider chronic interstitial lung disease. No acute airspace disease. . Assessment & Plan Assessment & Plan (1) Cough: Comment: SHE HAS NONSPECIFIC COUGH FOR THE LAST 3 MONTHS, THERE WAS NO DEFINITE RESPIRATORY INFECTION, BUT SHE DOES HAVE SOME IRRITATION IN THE THROAT. HAS NOT BEEN TREATED WITH ANY ANTIBIOTICS . Code(s): R05.9 - Cough, unspecified Category: Medical Plan: SHE HAS A PATTERN OF CHRONIC COUGH, IT MAY HAVE BEEN STARTED WITH A MILD UPPER RESPIRATORY INFECTION I WILL GIVE HER A SHORT COURSE OF AZITHROMYCIN. SHE IS SCHEDULED FOR HAVING PULMONARY FUNCTION TEST. ALSO REQUESTING CT SCAN OF THE CHEST. (2) Interstitial lung disease: Comment: CHEST X-RAY DID NOT SHOW ANY ACUTE INFECTION. BUT THE PATTERN OF BRONCHOVASCULAR MARKINGS SUGGESTED INTERSTITIAL LUNG DISEASE. Code(s): J84.9 - Interstitial pulmonary disease, unspecified Category: Medical Plan: CT SCAN OF THE CHEST IS ORDERED. Orders: Orders CT chest wo con - High Res Today J84.9 - Interstitial pulmonary disease, unspecified, R05.9 - Cough, unspecified PFT pulmonary function test Today J84.9 - Interstitial pulmonary disease, unspecified, R05.9 - Cough, unspecified Medications: New azithromycin For 250 mg dose pack: take 500 mg today (day 1), then 250 mg for 4 days (days 2-5) PO 6 tabs 0RF Coding Level of Care Code New Pt Level 4 (71646) Diagnoses Cough R05.9 Interstitial lung disease J84.9
== END 2025-04-22 11:01 | disposition home or self-care (01) ==
LOC: HO.HPS 09:55
PROVIDERS: PCP Internal Medicine; Referring Provider Internal Medicine; Visit Provider Internal Medicine
DX: R05.9 Cough, unspecified (principal); J84.9 Interstitial pulmonary disease, unspecified
CPT/HCPCS: 99204

== ENCOUNTER → 2025-04-22 09:54 | Outpatient (BNV) | payer MEDICARE, MEDICAID, SELFPAY | PROVIDERS: PCP Internal Medicine; Visit Provider Psychiatry & Neurology Neurology | DX: G47.33 Obstructive sleep apnea (adult) (pediatric) (principal) | CPT/HCPCS: 95806 ==

== ENCOUNTER 2025-06-03 12:37 | Outpatient (AMB) | payer MEDICARE, SELFPAY ==
--- NOTE | 2025-06-03 12:47 | MHC.OFFVIS ---
Vital Signs 06/03/25 12:48 Height 5 ft 6 in BP 120/76 Blood Pressure Location Rt brachial Position Sitting Pulse 82 Pulse Source Pulse Oximeter Pulse Oximetry (%) 95 Oxygen Delivery Method Room Air Intake Visit Reasons: 4mnth follow up (CONF.) Intake Note: Follow up Tremor of both hands, snoring and hypersomnia. Home Sleep study 05.05.2025 Slitter And Rewinder Machine Operator Required: Yes Slitter And Rewinder Machine Operator Name: Azar Baker ID: [id number] Accompanied by: Spouse Allergies atorvastatin Allergy (Intermediate, Verified 06/03/25 12:48) elevated liver enzymes cortisone (CORTISONE) Allergy (Intermediate, Verified 06/03/25 12:48) SWELLING Penicillins (PENICILLINS) Allergy (Mild, Verified 06/03/25 12:48) RASH Medication List - Last Reconciled 06/03/25 by Ina Butler MD aripiprazole 5 mg PO DAILY benztropine 0.5 mg PO BID blood sugar diagnostic ([employer] Ultra Test strips) Use 1 test strip once a day blood-glucose meter ([employer] Ultra2 Meter) As directed bupropion HCl XL 300 mg PO BEDTIME buspirone 10 mg PO DAILY cholecalciferol (vitamin D3) 25 mcg PO DAILY 90 days clonidine HCl 0.2 mg PO BEDTIME clonidine HCl 0.1 mg PO BID empagliflozin (Jardiance) 10 mg PO DAILY 90 days ezetimibe 10 mg PO DAILY 90 days flash glucose sensor (FreeStyle Tre 14 Day Sensor kit) As directed fluoxetine 60 mg PO QAM gabapentin 600 mg PO TID 30 days lancets (Cargo Cult SolutionsTouch UltraSoft 2 Lancet) Use 1 lancet twice a day linaclotide (Linzess) 290 mcg PO DAILY omeprazole 40 mg PO BID rosuvastatin 5 mg PO DAILY 90 days Held on 01/07/25. 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 Tremors are same- affects her ADL HST was normal History from initial visit 01/2025-she reports tremors in natasha hands for about 1year.The tremors are both at rest and posture , action, It can be intermittent and Right is worse than left. when she lifts a spoon or fork in her right hand she notices more. she notices occasional tremors in legs. she has trouble writing, dressing , applying make up, eating drinking.It is worse since she started noticing 1 kat ago. No family history of tremors. No head injury she is on aripiprazole 2.5mg qd - recently decreased.she has been on neuroleptics for more than 10 years. she also has trouble initiating sleep, snoring- HST showed mild sleep apnea - 5 years ago . 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 (poly)neuropathy Hypovitaminosis D Mild recurrent major depression Polyarthralgia Left knee pain Dyslipidemia Surgical History H/O arthroscopy of left knee History of left knee surgery History of total right knee replacement H/O prior ablation treatment History of partial hysterectomy History of tubal ligation Hx of arthroplasty Hx of cardiac cath History of carpal tunnel release Hx of shoulder surgery Hx of section History of bladder surgery Hx of colonoscopy History of esophagogastroduodenoscopy (EGD) Family History Father CVD (cardiovascular disease) Mother Diabetes Hypertension Son No problems noted. Daughter No problems noted. Daughter No problems noted. Family/Other Mental health disorder Social History Housing: Apartment Alcohol intake: never Patient Tobacco Use Status: Never used Tobacco e-Cigarette/Vaping Use: Never Used Second Hand Smoke Exposure: No service: No Current occupational status: unemployed Cognitive needs: No Hearing needs: No Vision needs: No Physical Exam Vital Signs: Last Vital Signs Pulse 82 06/03/25 12:48 BP 120/76 06/03/25 12:48 Pulse Ox 95 06/03/25 12:48 Oxygen Delivery Method Room Air 06/03/25 12:48 Const General: cooperative, healthy appearing and comfortable Nutritional Appearance: overweight Orientation/consciousness: patient oriented x3 Neuro Other: mild intermittent right hand rest tremors and some action tremors No cog wheel rigidty , mild bradkinesia natasha mallampatti grade 4 General: patient oriented x3, moves all extremities and no focal motor deficits Cranial nerves: Yes Bilaterally intact EOM present, Yes Nystagmus not present, Yes Normal facial strength present, Yes Midline tongue present and Yes Symmetric palate elevation present Cognition (Neuro): normal cognition Gait exam (Neuro): Antalgic gait present Motor exam (neuro): 5/5 motor strength present throughout and Normal motor muscle tone present throughout Coordination: [id number] test normal Assessment & Plan Assessment & Plan (1) Tremor of both hands: Code(s): R25.1 - Tremor, unspecified Category: Medical Plan Her tremors are likley related to exposure to aripiprazole. Trial bemztropine.0.5mg bid Continue hand strengthening exercises Home sleep test - was inconclusive - no evidence of sleep apnea. Medications: New benztropine 0.5 mg PO BID 60 tabs 2RF Coding Level of Care Code Est Pt Level 4 (05467) Complex EM visit Add On G2211 Diagnoses Tremor of both hands R25.1
[2025-06-03 12:48] VITALS: BP 120/76; PULSE 82; O2SAT 95
--- OUTSIDE RECORDS SUMMARY | 2025-06-03 15:14 | XMS_ITS | Clinical Summary ---
Author Organization 175 [facility] Address [address] [place] [address] Phone Care Team Providers Care Gas Combustion Engineer Name Role Phone Gwendolyn Lind MD Primary Care Provider [phone] Allergies No known active allergies Medications No known medications Encounters Date Type Department Care Team Description 04/01/2025 10:45 AM EDT Office Visit [facility] [place] [id number] [phone] Saran Renee DPM Controlled type [...] Upcoming Encounters Date Type Department Care Team ([facility] st Contact Info) Description 06/10/2025 9:30 AM EST Office Visit [facility] [place] [address] [phone] Saran Renee DPM [address] [address] Health Maintenance Due Date Last Done Comments Breast Cancer Screening 1955 Colorectal Cancer Screening: Colonoscopy 1957 Diabetes: Annual GFR (Glomer ular Filtration Rate) 1957 Diabetes: Annual Foot Exam 12/16/1967 Diabetes: Annual Retina Eye Exam 12/16/1967 DTaP,Tdap,and Td Vaccines (1 - Tdap) 1976 Pneumococcal Vaccine: 50+ Ye ars (1 of 2 - PCV) 1976 RSV Immunization Adult Patie nts (1 - Risk 50-74 years 1-dose series) 12/16/2007 Zoster Vaccines (1 of 2) 12/16/2007 Depression Screening 07/23/2024 Cholesterol Screening (Lipid Panel) 01/08/2025 Diabetes: Annual Urine Albumin-Creatinine Ratio (uACR) 01/08/2025 Diabetes: Blood Sugar Contro l Test (HGBA1C) 01/08/2025 Falls Risk Assessment 01/08/2025 Hepatitis C Screening 01/08/2025 Medicare Annual Wellness Visit 01/08/2025 Osteoporosis Screening (Bone Density Screening) 01/08/2025 Social Influencers of Health Screening 01/08/2025 COVID-19 Vaccine ( - 2024-2 6 season) 2025 Influenza Vaccine (#1) 2025 HIB [...] - [place] Care Teams Gas Combustion Engineer Relationship Specialty Start Date End Date Gwendolyn Lind MD [address] [facility] [address] [facility] D/B/A: [facility] DENNISE Rios PCP - General Internal Medicine 01/08/25
== END 2025-06-03 13:25 | disposition home or self-care (01) ==
LOC: HO.HSMS 12:38
PROVIDERS: PCP Internal Medicine; Visit Provider Psychiatry & Neurology Neurology
DX: R25.1 Tremor, unspecified (principal)
CPT/HCPCS: 99214; G2211

== ENCOUNTER → 2025-06-03 12:37 | Outpatient (BNVA) | payer OTHER, SELFPAY | PROVIDERS: PCP Internal Medicine; Visit Provider Psychiatry & Neurology Neurology | DX: R25.1 Tremor, unspecified (principal); R06.83 Snoring; G47.10 Hypersomnia, unspecified | CPT/HCPCS: 99212 ==

== ENCOUNTER 2025-06-27 09:49 | Outpatient (REF) | payer OTHER, SELFPAY ==
--- NOTE | ~2025-06-27 | CT_ITS ---
CLINICAL HISTORY: R05.9 - Cough, unspecified CT chest without contrast Comparison: None provided Findings: Included lower neck, thyroid gland and mediastinum unremarkable. There is no chest lymphadenopathy. There is no cardiomegaly or pericardial effusion. The aorta and pulmonary arteries are normal in caliber. There are early coronary artery calcifications Bilateral lungs without focal airspace consolidation significant effusion or pneumothorax. The airways are patent. The esophagus is normal throughout the chest. There is a small hiatal hernia. Included upper abdomen otherwise without acute abnormality. The adrenal glands are nonenlarged. There no acute soft tissue or skeletal abnormality in the chest. There are no skeletal lesions. IMPRESSION: No acute process identified in this noncontrast chest CT scan. Small hiatal hernia. This document has been electronically signed by: Azar Mcqueen MD on 06/30/2025 10:02:25
--- OUTSIDE RECORDS SUMMARY | 2025-06-27 09:51 | XMS_ITS | Clinical Summary ---
Author Organization 175 [facility] Address [address] [place] [address] Phone Care Team Providers Care Application Helper Name Role Phone Gwendolyn Lind MD Primary Care Provider [phone] Allergies No known active allergies Medications No known medications Encounters Date Type Department Care Team Description 06/10/2025 9:30 AM EST Office Visit [facility] [address] [phone] Cj Cantu DPM Arthritis of both feet (Primary Dx); Dermatophytosis of nail; Hammertoes of both feet; Diabetic mononeuropathy simplex (CMS/HCC V24, CMS/HCC V28); Pain in toe of left foot; Pain in toe of right foot 04/01/2025 10:45 AM EDT Office Visit [facility] [address] [phone] Saran Renee DPM Controlled type 2 diabetes [...] Upcoming Encounters Date Type Department Care Team ([facility] Contact Info) Description 09/09/2025 9:30 AM EST Office Visit [facility] [address] [phone] Saran Renee DPM [address] [phone] Health Maintenance Due Date Last Done Comments [...] Influencers of Health Screening 01/08/2025 COVID-19 Vaccine (2024-2 6 season) 2025 Influenza Vaccine (#1) 2025 [...] Insurance [place] - [place]AGE [facility] [employer] Member Subscriber Plan / Payer (Ef fective 2025-Present) Name:Denis Smith Relation to Subscriber:Self Name:Denis Smith Payer ID:[id number] Group ID:[id number] Type:Not on file Address: [address] [place] [address] Care Teams Application Helper Relationship Specialty Start Date End Date Gwendolyn Lind MD 2 [facility] , [address] Physician Associ D/B/A: [facility] DENNISE Rios PCP - General Internal Medicine 01/08/25
== END 2025-06-27 09:50 | disposition home or self-care (01) ==
LOC: HO.CT 09:49
PROVIDERS: PCP Internal Medicine; Visit Provider Internal Medicine
DX: R05.9 Cough, unspecified (principal); J84.9 Interstitial pulmonary disease, unspecified
CPT/HCPCS: 71250

== ENCOUNTER → 2025-06-27 09:52 | Outpatient (BNV) | payer OTHER, SELFPAY | PROVIDERS: PCP Internal Medicine; Visit Provider Radiology Diagnostic Radiology | DX: K44.9 Diaphragmatic hernia without obstruction or gangrene (principal) | CPT/HCPCS: 71250 ==

== ENCOUNTER 2025-07-01 09:57 | Outpatient (AMB) | payer OTHER, SELFPAY ==
[2025-07-01 10:09] VITALS: BP 110/62; PULSE 73; O2SAT 97; BMI 29.5
--- NOTE | 2025-07-01 10:09 | MHC.OFFVIS ---
Vital Signs 07/01/25 10:09 Height 5 ft 6 in Weight 182 lb 15.739 oz BMI 29.5 BP 110/62 Blood Pressure Location Lt brachial Position Sitting Pulse 73 Pulse Source Pulse Oximeter Pulse Oximetry (%) 97 Oxygen Delivery Method Room Air Intake Visit Reasons: Interstitial Pulmonary Disease/PFT Follow Up Intake Note: pt is here for follow up and states she is feeling some cough and wheeze [employer]ra[employer] Finisher Required: No [employer]isher Services: [employer] Offered & Declined Enterprise Security Architect: Enterprise Security Architect offered & declined Allergies atorvastatin Allergy (Intermediate, Verified 07/01/25 10:51) elevated liver enzymes cortisone (CORTISONE) Allergy (Intermediate, Verified 07/01/25 10:51) SWELLING Penicillins (PENICILLINS) Allergy (Mild, Verified 07/01/25 10:51) RASH Medication List - Last Reconciled 07/01/25 by Rebecca Early MD aripiprazole 5 mg PO DAILY benztropine 0.5 mg PO BID blood sugar diagnostic (PassionTaguch Ultra Test strips) Use 1 test strip once a day blood-glucose meter (PassionTaguch Ultra2 Meter) As directed bupropion HCl XL 300 mg PO BEDTIME buspirone 10 mg PO DAILY cholecalciferol (vitamin D3) 25 mcg PO DAILY 90 days clonidine HCl 0.2 mg PO BEDTIME clonidine HCl 0.1 mg PO BID empagliflozin (Jardiance) 10 mg PO DAILY 90 days ezetimibe 10 mg PO DAILY 90 days flash glucose sensor (FreeStyle Tre 14 Day Sensor kit) As directed fluoxetine 60 mg PO QAM gabapentin 600 mg PO TID 30 days lancets (ImagekindTouch UltraSoft 2 Lancet) Use 1 lancet twice a day linaclotide (Linzess) 290 mcg PO DAILY omeprazole 40 mg PO BID rosuvastatin 5 mg PO DAILY 90 days Held on 01/07/25. Instructions: Doctor's Order trazodone 100 mg PO BEDTIME Do you need a note to return to daycare/school/sports/work: No HPI HPI Interstitial Pulmonary Disease/PFT Follow Up: Details: This 69 years old female is back for follow-up and her main complaint is intermittent dry cough. From her last visit the question of possible interstitial lung disease was raised and also there was question of bronchospastic disorder. Her cough is generally less than before but still gets cough when she tries to take a deep breath or on talking loud, During her performance of the pulmonary function test and trying to take deep breaths she did have cough. There has been no respiratory infection. She does not hear any wheezes. She is not on any bronchodilators. She has no special triggers for the cough, and. She has no good symptoms. As she has moderate obesity, and poor sleep she underwent home-based sleep study as ordered by the Neurology and sleep Medicine service. I scanned the results and she does not have any sleep apnea. [facility] Medical History Hypersomnia Snoring Type 2 diabetes mellitus with diabetic autonomic (poly)neuropathy Hypovitaminosis D Mild recurrent major depression Polyarthralgia Left knee pain Dyslipidemia Surgical History H/O arthroscopy of left knee History of left knee surgery History of total right knee replacement H/O prior ablation treatment History of partial hysterectomy History of tubal ligation Hx of arthroplasty Hx of cardiac cath History of carpal tunnel release Hx of shoulder surgery Hx of section History of bladder surgery Hx of colonoscopy History of esophagogastroduodenoscopy (EGD) Family History Father CVD (cardiovascular disease) Mother Diabetes Hypertension Son No problems noted. Daughter No problems noted. Daughter No problems noted. Family/Other Mental health disorder Social History Housing: Apartment Alcohol intake: never Patient Tobacco Use Status: Never used Tobacco e-Cigarette/Vaping Use: Never Used Second Hand Smoke Exposure: No service: No Current occupational status: unemployed Cognitive needs: No Hearing needs: No Vision needs: No Review of Systems Const All systems reviewed & are unremarkable except as noted in HPI and below Eyes Reports no additional complaints ENT Reports no additional complaints Card Denies chest pain, Denies irregular heart rhythm and Denies leg edema Resp Reports as per HPI GI Reports heartburn (GERD symptoms controlled with omeprazole) Reports no additional complaints Musc Reports no additional complaints Skin/Breast Reports system reviewed and no additional complaints, except as documented Neuro Reports no additional complaints Psych Reports anxiety and Reports depression Endo Reports other (Diabetes mellitus) Main/Lymph Reports no additional complaints Aller/Immun Reports no additional complaints Physical Exam Vital Signs: Last Vital Signs Pulse 73 07/01/25 10:09 BP 110/62 07/01/25 10:09 Pulse Ox 97 07/01/25 10:09 Oxygen Delivery Method Room Air 07/01/25 10:09 BMI result Body Mass Index 29.5 Const General: healthy appearing (Except being moderately obese), comfortable, no acute distress, alert and awake Orientation/consciousness: patient oriented x3 HEENT Head: Yes normal to inspection General nose exam: No nasal polyps present and No nasal discharge present Face and sinus: Yes sinuses nontender Mouth: oropharynx normal Throat: Yes posterior oropharynx normal Eyes General: appearance normal, both eyes and all related structures Neck Neck: Yes normal visual inspection, Yes no lymphadenopathy, Yes trachea midline and Yes no JVD Thyroid: Thyroid normal Chest Chest palpation & inspection: normal inspection of the chest, normal palpation of entire chest wall and no tenderness Resp Other: Patient does have cough on taking deep breaths Effort & Inspection: normal respiratory effort Auscultation: clear to auscultation bilaterally (Breath sounds slightly diminished over the basilar areas) Cardio Palpation: normal PMI Rate: regular rate Rhythm: regular rhythm Heart sounds: no gallops and no murmurs Peripheral pulses: Peripheral pulses 2+ throughout GI Palpation (GI): Soft to palpation, nontender, No hepatosplenomegaly present and no masses Auscultation: normal bowel sounds Back/Spine/Pelvis Thoracic/Lumbar Spine: thoracic and lumbar spine normal to inspection Skin General skin exam: no rashes or lesions noted Neuro General: patient oriented x3 and no focal motor deficits Cranial nerves: Yes CN's II-XII intact bilaterally Extrem General: Yes normal to inspection, Yes no clubbing, cyanosis or edema and Yes no calf tenderness Psych Appearance: grossly normal and well kempt Speech and movement: Normal speech and movement present Results Reviewed Results Reviewed: CT SCAN OF THE CHEST ON 06/27/2025. SHOWS NO ACUTE PROCESS , THERE IS NO LYMPHADENOPATHY CONSOLIDATION OR THICKENING OF THE AIRWAYS. PULMONARY FUNCTION TEST, FVC 70%, FLOW VOLUMES ARE NORMAL, THERE IS POSITIVE RESPONSE TO BRONCHODILATOR THERAPY INDICATED BY INCREASED FVC AND FEF 12/09/2074. THIS INDICATES POSSIBLE MILD BRONCHOSCOPY HIM AND REACTIVE AIRWAYS DISEASE Assessment & Plan Assessment & Plan (1) Cough: Comment: MILD INTERMITTENT COUGH, NO SUSTAINED ASTHMA. THE COUGH IS PROBABLY ASTHMA VARIANT/ REACTIVE AIRWAYS. CHEST CT SCAN IS NORMAL Code(s): R05.9 - Cough, unspecified Category: Medical Plan: ALBUTEROL HFA AND MAY USE 1 OR 2 PUFFS Q 4-6 HOURS PRN FOR SUSTAINED BOUTS OF COUGH. KEEP HUMIDIFICATION ACTIVE IN THE HOUSE. MAY USE COUGH DROPS PRN (2) Interstitial lung disease: Comment: CHEST X-RAY DID NOT SHOW ANY ACUTE INFECTION. BUT THE PATTERN OF BRONCHOVASCULAR MARKINGS SUGGESTED INTERSTITIAL LUNG DISEASE. HOWEVER CT SCAN OF THE CHEST IS NEGATIVE FOR ANY INTERSTITIAL LUNG DISEASE. Code(s): J84.9 - Interstitial pulmonary disease, unspecified Category: Medical Plan: I SHARED THE FINDINGS OF CT SCAN WITH THE PATIENT. AND TOLD HER THAT SHE DOES NOT HAVE ANY CHRONIC LUNG DISEASE AND ESPECIALLY THERE IS NO EVIDENCE OF INTERSTITIAL LUNG DISEASE. Medications: New albuterol sulfate 90 mcg/actuation (Ventolin HFA) 2 puffs inhalation Q4-6H PRN 6.7 grams 3RF wheezing or spasmodic cough 30 days Coding Level of Care Code Est Pt Level 3 (89459) Diagnoses Cough R05.9 Interstitial lung disease J84.9
== END 2025-07-01 10:51 | disposition home or self-care (01) ==
LOC: HO.HPS 09:58
PROVIDERS: PCP Internal Medicine; Visit Provider Internal Medicine
DX: R05.9 Cough, unspecified (principal); J84.9 Interstitial pulmonary disease, unspecified
CPT/HCPCS: 99213

== ENCOUNTER 2025-07-01 09:58 | Outpatient (REF) | payer OTHER, SELFPAY ==
--- NOTE | 2025-07-01 10:05 | PFT_ITS ---
Spirometry [] Lung Volumes [] Diffusion Capacity [] Methacholine Challenge [] Flow Volume Loops [] MVV [] MIP/MEP(Max inspiratory pressure/Max expiratory pressure) [] 6 Minute Walk Test [] ABG [] Interpretation [] MTDD
[2025-07-01 10:45] VITALS: PULSE 73
== END 2025-07-01 09:59 | disposition home or self-care (01) ==
LOC: HO.RESP 09:58
PROVIDERS: PCP Internal Medicine; Visit Provider Internal Medicine
DX: R05.9 Cough, unspecified (principal); Z79.899 Other long term (current) drug therapy
CPT/HCPCS: 94060; 94640; 94727; 94729; 99212